=== PATIENT | male | born 1990 | race Caucasian/White ===

== ENCOUNTER 2016-10-07 05:01 | Emergency (ER) | payer BC ==
[~2016-10-07] VITALS: Ht 180.3 cm; Wt 75.0 kg
[2016-10-07 05:09] VITALS: BP 134/81; PULSE 94; RESP 16; TEMP 99.3; O2SAT 99
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
[2016-10-07 05:59] VITALS: O2SAT 98
[2016-10-07 06:04] VITALS: BP 128/72; PULSE 81; RESP 16; O2SAT 98
--- NOTE | 2016-10-07 06:09 | RADRPT ---
EXAM DATE/TIME: 10/07/2016 05:30 [facility] COMPARISON: No previous studies available for comparison. INDICATIONS : Shortness of breath. MEDICAL HISTORY : None. SURGICAL HISTORY : None. ENCOUNTER: Initial ACUITY: 1 day PAIN SCORE: 0/10 LOCATION: Bilateral chest FINDINGS: A single view of the chest demonstrates the lungs to be symmetrically aerated without evidence of mas s, infiltrate or effusion. The cardiomediastinal contours are unremarkable. Osseous structures are intact. CONCLUSION: Normal examination. Mat Ferro MD on October 07, 2016 at 6:07 Board Certified Radiologist. This report was verified electronically.
[2016-10-07] MEDS ORDERED: KETOROLAC TROMETHAMINE 30 MG/ML (IVP) VIAL IV PUSH ONE (06:15)
[2016-10-07 06:16] LABS: AUTOMATED NEUTROPHIL # 4.7 TH/MM3 (1.8-7.7); BASOPHIL # 0.1 TH/MM3 (0-0.2); BASOPHIL % 0.7 % (0.0-2.0); EOSINOPHIL # 0.1 TH/MM3 (0-0.4); EOSINOPHIL % 1.8 % (0.0-4.0); HEMATOCRIT 40.7 % (39.0-51.0); HEMO FLAGS DIFF FINAL; LYMPH % 26.3 % (9.0-44.0); LYMPHOCYTE # 1.9 TH/MM3 (1.0-4.8); MEAN CELL VOLUME 85.5 FL (80.0-100.0); MEAN CORPUSCULAR HGB CONC 35.1 % (32.0-36.0); NEUT % 64.2 % (16.0-70.0); PLATELET COUNT 277 TH/MM3 (150-450); RED BLOOD COUNT 4.76 MIL/MM3 (4.50-5.90); RED CELL DISTRIBUTION WIDTH 13.6 % (11.6-17.2); WHITE BLOOD COUNT 7.3 TH/MM3 (4.0-11.0)
[2016-10-07] MEDS ORDERED: ACETAMINOPHEN 325 MG TAB PO ONE (06:30)
[2016-10-07 06:38] LABS: ALT (GPT) 30 U/L (12-78); ANION GAP 6 MEQ/L (5-15); AST (GOT) 20 U/L (15-37); BICARBONATE 28.6 MEQ/L (21.0-32.0); BLOOD UREA NITROGEN 14 MG/DL (7-18); CHLORIDE 104 MEQ/L (98-107); GLOMERULAR FILTRATION RATE 119 ML/MIN (>89); POTASSIUM 3.4 MEQ/L (3.5-5.1); SODIUM (NA) 139 MEQ/L (136-145)
[2016-10-07 06:41] LABS: ALKALINE PHOSPHATASE 52 U/L (45-117); TOTAL BILIRUBIN ADULT 0.8 MG/DL (0.2-1.0)
--- NOTE | 2016-10-07 07:22 | RADRPT ---
EXAM DATE/TIME: 10/07/2016 06:48 [facility] COMPARISON: No previous studies available for comparison. INDICATIONS : Neck pain and numbness in fingers. RADIATION DOSE: 33.29 CTDIvol (mGy) MEDICAL HISTORY : None SURGICAL HISTORY : None. ENCOUNTER: Initial ACUITY: 3 days PAIN SCALE: 7/10 LOCATION: neck TECHNIQUE: Volumetric scanning of the cervical spine was performed. Multiplanar reconstructions in the sagittal, coronal and oblique axial planes were performed. Using automated exposure control and adjustment o f the mA and/or kV according to patient size, radiation dose was kept as low as reasonably achievable to obtain optimal diagnostic quality images. DICOM format image data is available electronically f or review and comparison. FINDINGS: VERTEBRAE: Normal vertebral body height. ALIGNMENT: No evidence of subluxation. C2-C3: The bony spinal canal is normal in size. No evidence of disc bulge or herniation. The neural forami na are bilaterally patent. C3-C4: The bony spinal canal is normal in size. No evidence of disc bulge or herniation. The neural forami na are bilaterally patent. C4-C5: The bony spinal canal is normal in size. No evidence of disc bulge or herniation. The neural forami na are bilaterally patent. C5-C6: Mild disc space narrowing and mild left-sided uncovertebral osteoarthritis. There is mild left forami nal stenosis. C6-C7: Minimal disc space narrowing. Very small left paracentral disc osteophyte complex without significant foraminal or spinal stenosis. C7-T1: Disc height is normal. There is mild bilateral facet osteoarthritis. No foraminal or spinal stenosis. CONCLUSION: Early/mild lower cervical degenerative changes as above. Mild left foraminal encroachment at C5/C6. N o high-grade foraminal or spinal stenosis at any level. No evidence of an acute disc herniation. Kirill Bolanos MD on October 07, 2016 at 7:17 Board Certified Radiologist. This report was verified electronically.
--- NOTE | 2016-10-07 07:41 | RADRPT ---
EXAM DATE/TIME: 10/07/2016 06:51 [facility] COMPARISON: No previous studies available for comparison. INDICATIONS : Upper back pain when breathing deep for three days. RADIATION DOSE: 35.86 CTDIvol (mGy) MEDICAL HISTORY : None SURGICAL HISTORY : None. ENCOUNTER: Initial ACUITY: 3 days PAIN SCALE: 5/10 LOCATION: upper back TECHNIQUE: Volumetric scanning of the thoracic spine was performed. Multiplanar reconstructions in the sagittal , coronal and oblique axial planes were performed. Using automated exposure control and adjustment o f the mA and/or kV according to patient size, radiation dose was kept as low as reasonably achievable to obtain optimal diagnostic quality images. DICOM format image data is available electronically f or review and comparison. FINDINGS: There is a slight S-shaped curvature. Thoracic kyphosis is mildly exaggerated for a patient this age. There is mild chronic appearing anterior wedging of the T8-L1 vertebral bodies, probably on the basi s of chronic Scheuermann's disease. Slight disc space narrowing seen at essentially all levels. There is mild anterior osseous ridging at T3/T4 and T4/T5 as well as T11/T12 and T12/L1. Mild chronic appearing endplate irregularity and cotton bag clipper kelley appearing femorals nodes changes are seen from T8/T9-T12/L1. Mild bilateral facet osteoarthritis seen from T6/T7-T12/L1 and contributing to mild foraminal stenosis, mostly T7/T8, T8/T9, T9/T10 and T 10/T11. No perceptible acute disc herniation. A subcentimeter benign calcified granuloma seen in the right lower lobe. There is a 4 mm noncalcified nodule seen in the visualized right upper lobe, series 4 image 50. CONCLUSION: 1. Mild multifocal degenerative and suspected chronic Scheuermann's changes of the thoracic spine. 2. Mild kyphoscoliosis. No fracture or acute appearing malalignment. 3. Mild bilateral foraminal stenosis from T7/T8-T10/T11, mostly on the basis of mild facet osteoarthr itis. 4. No spinal stenosis. No acute disc herniation seen. 5. Noncalcified nodule of the right upper lobe and a followup noncontrast chest CT is recommended in 6 months. Kirill Bolanos MD on October 07, 2016 at 7:30 Board Certified Radiologist. This report was verified electronically.
[2016-10-07 08:16] LABS: BLOOD, URINE NEG (NEG); COMMENT (UR) CULT NOT INDICATED; CULTURE IF INDICATED CULT NOT INDICATED; GLUCOSE,URINE NEG (NEG); KETONE, URINE NEG (NEG); MUCUS URINE MANY /lpf (OCC); NITRITE,URINE NEG (NEG); SQUAMOUS EPITHELIAL CELL URINE <1 /hpf (0-5); URINE COLOR YELLOW (YELLW/STRAW)
[2016-10-07] MEDS ORDERED: TYLETAB34 PO (11:12)
--- NOTE | 2016-10-07 11:17 | PD ---
Data Data Last Documented VS Vital Signs Date Time Temp Pulse Resp B/P Pulse Ox O2 Delivery O2 Flow Rate FiO2 10/07/16 06:04 81 16 128/72 98 Room Air 10/07/16 05:09 99.3 Orders Complete Blood Count With Diff (10/07/16 05:33) Comprehensive Metabolic Panel (10/07/16 05:33) C-Reactive Protein (Crp) (10/07/16 05:33) Urinalysis - C+S If Indicated (10/07/16 05:33) Westergren Sedimentation Rate (10/07/16 05:33) Chest, Single Ap (10/07/16 05:33) Iv Access Insert/Monitor (10/07/16 05:33) Ecg Monitoring (10/07/16 05:33) Oximetry (10/07/16 05:33) Ct Cerv Spine W/O Contrast (10/07/16 05:59) Ct Thor Spine W/O Contrast (10/07/16 05:59) Ketorolac Inj (Toradol Inj) (10/07/16 06:15) Acetaminophen (Tylenol) (10/07/16 06:30) Blood Culture (10/07/16 09:32) Labs Laboratory Tests Test 10/07/16 10/07/16 05:55 08:05 White Blood Count 7.3 TH/MM3 Red Blood Count 4.76 MIL/MM3 Hemoglobin 14.3 GM/DL Hematocrit 40.7 % Mean Corpuscular Volume 85.5 FL Mean Corpuscular Hemoglobin 30.0 PG Mean Corpuscular Hemoglobin 35.1 % Concent Red Cell Distribution Width 13.6 % Platelet Count 277 TH/MM3 Mean Platelet Volume 7.9 FL Neutrophils (%) (Auto) 64.2 % Lymphocytes (%) (Auto) 26.3 % Monocytes (%) (Auto) 7.0 % Eosinophils (%) (Auto) 1.8 % Basophils (%) (Auto) 0.7 % Neutrophils # (Auto) 4.7 TH/MM3 Lymphocytes # (Auto) 1.9 TH/MM3 Monocytes # (Auto) 0.5 TH/MM3 Eosinophils # (Auto) 0.1 TH/MM3 Basophils # (Auto) 0.1 TH/MM3 CBC Comment DIFF FINAL Differential Comment Sodium Level 139 MEQ/L Potassium Level 3.4 MEQ/L Chloride Level 104 MEQ/L Carbon Dioxide Level 28.6 MEQ/L Anion Gap 6 MEQ/L Blood Urea Nitrogen 14 MG/DL Creatinine 0.78 MG/DL Estimat Glomerular Filtration 119 ML/MIN Rate Random Glucose 87 MG/DL Calcium Level 8.9 MG/DL Total Bilirubin 0.8 MG/DL Aspartate Amino Transf 20 U/L (AST/SGOT) Alanine Aminotransferase 30 U/L (ALT/SGPT) Alkaline Phosphatase 52 U/L C-Reactive Protein 2.97 MG/DL Total Protein 8.2 GM/DL Albumin 3.7 GM/DL Erythrocyte Sedimentation Rate 46 mm/hr Urine Color YELLOW Urine Turbidity HAZY Urine pH 6.0 Urine Specific Hurricane 1.030 Urine Protein 30 mg/dL Urine Glucose (UA) NEG mg/dL Urine Ketones NEG mg/dL Urine Occult Blood NEG Urine Nitrite NEG Urine Bilirubin NEG Urine Urobilinogen 2.0 MG/DL Urine Leukocyte Esterase NEG Urine RBC 2 /hpf Urine WBC 3 /hpf Urine Squamous Epithelial <1 /hpf Cells Urine Amorphous Sediment RARE Urine Mucus MANY /lpf Microscopic Urinalysis Comment CULT NOT INDICATED MDM Supervised Visit with DARNELL: No Narrative Course This case is checked out to me by Dr. Tse at 7 AM I have reviewed the entirety of the workup. I discussed it with the patient at length CT scan of cervical and thoracic spine reveals some degenerative change but no disc herniation or bony problem Patient is afebrile and not hypotensive nor tachycardic He does not look septic or toxic CBC and metabolic profiles are normal He does have some elevation of sedimentation rate which I did discuss with Dr. Tse She recommended adding blood cultures and I have sent 2 sets. She felt he was stable for outpatient follow-up I did not think this was infectious I instructed the patient to make sure that the staff here had his accurate contact number so we could contact him if blood cultures were positive He should follow up with his primary physician, he doesn't have one so I discussed with him that he should seek out getting a new one. He needs to avoid IV drug use Diagnosis Primary Impression: Back pain Qualified Code: M54.6 - Acute right-sided thoracic back pain Additional Instruction: The patient was advised to follow up with their physician and return if they worsen. The patient was warned about potential sedation for the medications they will receive on prescription. Med/Other Pt SpecificInfo: Prescription(s) given Scripts Acetaminophen-Codeine (Tylenol-Codeine #3)300-30 mg Tab1 Tab PO Q6HR PRN (PAIN) #15 TAB Ref 0 Prov:Caleb Decker MD 10/07/16 Disposition: 01 DISCHARGE HOME Condition: Stable Caleb Decker MD Oct 07, 2016 11:17
[2016-10-21] MEDS ORDERED: OXYC-395 PO (14:45)
[2016-10-21] MEDS ORDERED: PERI8.6T PO (15:54)
[2016-10-30] MEDS ORDERED: OXYC-395 PO (08:55)
[2016-10-30] MEDS ORDERED: MELA1TAB18 PO (08:57)
[2016-11-13] MEDS ORDERED: TRAM50TA PO (13:17)
== END 2016-10-07 11:42 | disposition home or self-care (01) ==
LOC: NEPE 05:01
DX: M54.6 Pain in thoracic spine (principal); F17.210 Nicotine dependence, cigarettes, uncomplicated
CPT/HCPCS: 71010; 72125; 72128; 80053; 81001; 85025; 85652; 86140; 87040; 99285

== ENCOUNTER 2016-10-11 00:10 | Emergency (ER) | payer BC ==
[~2016-10-11] VITALS: Ht 180.3 cm; Wt 118.0 kg
[~2016-10-11 00:10] MED LIST: TYLETAB34 PO
[2016-10-11 00:11] VITALS: BP 134/79; PULSE 101; RESP 18; TEMP 99.2; O2SAT 100
[2016-10-11] MEDS ORDERED: IBUP-232 PO (00:48)
[2016-10-11] MEDS ORDERED: CYCL1TAB29 PO (00:48)
--- NOTE | 2016-10-11 00:48 | PD ---
HPI Chief Complaint: Pain: Acute or Chronic Time Seen by Provider: 00:43 Travel History International Travel<30 days: No Contact w/Intl Traveler<30days: No Traveled to known affect area: No History of Present Illness HPI Patient is a 26-year-old male presents emergency department for second evaluation of his right shoulder pain. Patient states been on for approximately a week. He was here 4 days ago and had workup and CT of his T- spine x-ray of his chest which were negative. Patient states that he did not have any specific trauma and just feels like his shoulder is very tight anytime he tries to move it. Denies any weakness denies any chest pain denies shortness of breath abdominal pain. PFSH Past Medical History Medical History: Denies Significant Hx Diminished Hearing: No Hepatitis: Yes (poss. hep c) Tetanus Vaccination: < 5 Years Influenza Vaccination: No Past Surgical History Surgical History: No Previous Surgery Social History Alcohol Use: Yes (OCC SOCIAL) Tobacco Use: Yes (1PPD) Substance Use: Yes (THC) Allergies-Medications (Allergen,Severity, Reaction): Coded Allergies: Naproxen (Verified Allergy, Unknown, RASH, 10/11/16) Reported Meds & Prescriptions Reported Meds & Active Scripts Active Flexeril (Cyclobenzaprine HCl) 10 Mg Tab 10 Mg PO TID PRN Ibuprofen 600 Mg Tab 600 Mg PO Q6H PRN Review of Systems Except as stated in HPI: all other systems reviewed are Neg Physical Exam Narrative GENERAL: Well-nourished, well-developed patient. Smells of cigarette smoke in no obvious distress. SKIN: Focused skin assessment warm/dry. HEAD: Normocephalic. EYES: No scleral icterus. No injection or drainage. NECK: Supple, trachea midline. No JVD or lymphadenopathy. CARDIOVASCULAR: Regular rate and rhythm without murmurs, gallops, or rubs. RESPIRATORY: Breath sounds equal bilaterally. No accessory muscle use. GASTROINTESTINAL: Abdomen soft, non-tender, nondistended. MUSCULOSKELETAL: No cyanosis, or edema. Patient has no obvious deformity of the right shoulder, there is some minimal tenderness to the soft tissue just below the scapula. Patient has full but tender range of motion of the right shoulder, no tenderness at the elbow wrist bilaterally. Pulses motor and sensory intact distally in all 4 extremities, compartments are soft. No midline CT or L-spine tenderness. BACK: Nontender without obvious deformity. No CVA tenderness. Data Data Last Documented VS Vital Signs Date Time Temp Pulse Resp B/P Pulse Ox O2 Delivery O2 Flow Rate FiO2 10/11/16 00:36 18 10/11/16 00:11 99.2 101 134/79 100 Room Air Orders Ibuprofen (Motrin) (10/11/16 01:00) MDM Medical Decision Making Medical Screen Exam Complete: Yes Emergency Medical Condition: Yes Differential Diagnosis Shoulder Strain, shoulder sprain,, fracture highly unlikely. Narrative Course Patient roomed in emergency department, appears well in no obvious distress. He has been taking Tylenol with Codeine at home with no relief. Discussed range of motion exercises adding Flexeril. Ibuprofen as an anti-inflammatory and discussed need for follow-up the primary care physician and [facility]. I think given his clinical presentation muscular etiology is most likely cause. Diagnosis Primary Impression: Shoulder strain Referrals: [facility] Med/Other Pt SpecificInfo: Prescription(s) given Scripts Cyclobenzaprine (Flexeril)10 Mg Tab10 Mg PO TID PRN (MUSCLE SPASM) #20 TAB Ref 0 Prov:Stanley Figueroa MD 10/11/16 Ibuprofen 600 Mg Enp736 Mg PO Q6H PRN (Pain/Inflammation) #40 TAB Ref 0 Prov:Stanley Figueroa MD 10/11/16 Disposition: 01 DISCHARGE HOME Condition: Stable Stanley Figueroa MD Oct 11, 2016 00:48
[2016-10-11] MEDS ORDERED: IBUPROFEN 600 MG TAB PO ONE (01:00)
[2016-10-21] MEDS ORDERED: OXYC-395 PO (14:45)
[2016-10-21] MEDS ORDERED: PERI8.6T PO (15:54)
[2016-10-30] MEDS ORDERED: OXYC-395 PO (08:55)
[2016-10-30] MEDS ORDERED: MELA1TAB18 PO (08:57)
[2016-11-13] MEDS ORDERED: TRAM50TA PO (13:17)
== END 2016-10-11 01:32 | disposition home or self-care (01) ==
LOC: NEPC 00:10
DX: S46.911A Strain of unspecified muscle, fascia and tendon at shoulder and upper arm level, right arm, initial encounter (principal); X58.XXXA Exposure to other specified factors, initial encounter
CPT/HCPCS: 99283

== ENCOUNTER 2016-10-13 10:41 | Inpatient (IN) | payer BC ==
[~2016-10-13] VITALS: Ht 180.3 cm; Wt 113.6 kg
[~2016-10-13 10:41] MED LIST changes: +CYCL1TAB29 PO; +IBUP-232 PO
[2016-10-13 10:47] VITALS: BP 130/64; PULSE 82; RESP 20; TEMP 97.9; O2SAT 98
[2016-10-13] MEDS ORDERED: ONDANSETRON HCL 4 MG/2 ML VIAL IV PUSH ONE (12:00)
[2016-10-13] MEDS ORDERED: NEOSTIGMINE 3 MG/3 ML SYR IV ONE (12:00)
[2016-10-13] MEDS ORDERED: PROPOFOL 200 MG/20 ML AMP IV ONE (12:00)
[2016-10-13] MEDS ORDERED: HYDR-3516 PO ×2 (13:20)
--- NOTE | 2016-10-13 13:41 | PD ---
HPI . back pain, leg numbness and tingling x 2 days Chief Complaint: Back/ Neck Pain or Injury Time Seen by Provider: 13:41 Travel History International Travel<30 days: No Contact w/Intl Traveler<30days: No Traveled to known affect area: No History of Present Illness HPI 26-year-old male who was a IV drug user here with complaints of back pain, bilateral leg numbness and tingling. Patient was seen here in the emergency department on October 07 for similar issues, however at that time he did not have any numbness or tingling. He tells me approximately 2 days ago he developed numbness and tingling in his lower extremities. He says he has been extremely weak and unable to move his lower extremities. He has not been able to walk, and had to call fire rescue to bring him into the emergency department. He is accompanied by his mother, who confirms this. He tells me that a few days ago, he lied and told our doctor that he was not IV drug user. However he does use IV drugs. He reports using IV Dilaudid 2-3 days ago. 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 He tells me he is constantly feeling tons of vibration from these large machines that he is using. He denies any bowel or bladder dysfunction. On October 07, [address] scan of the C-spine that demonstrated early/ mild lower cervical degenerative changes. There was mild left foraminal encroachment at C5/C6. No high-grade foraminal or spinal stenosis at any level. There was no evidence of acute disc herniation. CT scan of the T-spine demonstrated mild multifocal degenerative and suspected chronic Scheuermann's changes of thoracic spine. There was also mild kyphoscoliosis. No fracture or acute appearing malalignment. Mild bilateral foraminal stenosis from T7/T8-T10/T11, mostly on the basis of mild facet osteoarthritis. No spinal stenosis no acute disc herniation seen. Noncalcified nodule of the right upper lobe and follow-up noncontrast CT of the chest recommended 6 months. PFSH Past Medical History Diminished Hearing: No Hepatitis: Yes (poss. hep c) Past Surgical History Surgical History: No Previous Surgery Social History Alcohol Use: Yes (OCC SOCIAL) Tobacco Use: Yes (1PPD) Substance Use: Yes (THC, iv dilaudid a few days ago) Allergies-Medications (Allergen,Severity, Reaction): Coded Allergies: naproxen (Verified Allergy, Unknown, RASH, 10/13/16) Reported Meds & Prescriptions Reported Meds & Active Scripts Active Flexeril (Cyclobenzaprine HCl) 10 Mg Tab 10 Mg PO TID PRN Ibuprofen 600 Mg Tab 600 Mg PO Q6H PRN Reported Hydrocodone-Acetaminophen 5-325 mg Tab 1 Tab PO Q4H PRN Review of Systems General / Constitutional: No: Fever Eyes: No: Visual changes HENT: No: Headaches Cardiovascular: No: Chest Pain or Discomfort Respiratory: No: Shortness of Breath Gastrointestinal: No: Abdominal Pain Genitourinary: No: Dysuria Musculoskeletal: Positive: Pain (back pain ) Skin: No Rash Neurologic: Positive: Incontinence, No: Weakness Psychiatric: No: Depression Endocrine: No: Polydipsia Hematologic/Lymphatic: No: Easy Bruising Physical Exam Narrative GENERAL: AAO x 3, no acute distress, Well-nourished, well-developed patient. SKIN: Warm and dry. No visible rashes or bruising. HEAD: Normocephalic and atraumatic. EYES: No scleral icterus. No injection or drainage. EOM intact, PERRLA ENT: No nasal drainage noted. Mucous membranes pink. Airway patent. NECK: Supple, trachea midline. No JVD. CARDIOVASCULAR: Regular rate and rhythm without murmurs, gallops, or rubs. RESPIRATORY: Breath sounds equal bilaterally. No accessory muscle use. No rhonchi or rales. GASTROINTESTINAL: Abdomen soft, non-tender, nondistended. no rebound or guarding EXTREMITIES: No cyanosis or edema. patient has difficulty moving lower extremities BACK: ++ tenderness along t spine that causes shooting pain in B/L legs, NEURO: CN II-12 intact, senior cost analyst strength normal b/l, UE and LE strength diminished bilaterally 4/5. PSYCH: AAO x 3, flat affect Data Data Last Documented VS Vital Signs Date Time Temp Pulse Resp B/P Pulse Ox O2 Delivery O2 Flow Rate FiO2 10/13/16 16:16 74 18 150/96 100 Room Air 10/13/16 10:47 97.9 Orders Mri C Spine W&W/O Contrast (10/13/16 ) Mri L Spine W&W/O Contrast (10/13/16 ) Mri T Spine W & W/O Contrast (10/13/16 ) Acetaminophen (Tylenol) (10/13/16 14:00) Complete Blood Count With Diff (10/13/16 13:59) Comprehensive Metabolic Panel (10/13/16 13:59) Lactic Acid (10/13/16 13:59) Urinalysis - C+S If Indicated (10/13/16 13:59) Blood Culture (10/13/16 13:59) Blood Glucose (10/13/16 13:59) Ecg Monitoring (10/13/16 13:59) Iv Access Insert/Monitor (10/13/16 13:59) Oximetry (10/13/16 13:59) Oxygen Administration (10/13/16 13:59) Prothrombin Time / Inr (Pt) (10/13/16 13:59) Act Partial Throm Time (Ptt) (10/13/16 13:59) Drug Screen, Random Urine (10/13/16 13:59) Gadodiamide Pf Inj (Omniscan Pf Inj) (10/13/16 15:57) NPO (10/13/16 17:01) Morphine Inj (Morphine Inj) (10/13/16 17:15) Labs Laboratory Tests Test 10/13/16 10/13/16 10/13/16 14:10 14:15 17:00 White Blood Count 6.2 TH/MM3 Red Blood Count 4.27 MIL/MM3 Hemoglobin 12.7 GM/DL Hematocrit 37.1 % Mean Corpuscular Volume 87.0 FL Mean Corpuscular Hemoglobin 29.8 PG Mean Corpuscular Hemoglobin 34.2 % Concent Red Cell Distribution Width 13.7 % Platelet Count 322 TH/MM3 Mean Platelet Volume 8.4 FL Neutrophils (%) (Auto) 78.6 % Lymphocytes (%) (Auto) 16.1 % Monocytes (%) (Auto) 4.3 % Eosinophils (%) (Auto) 0.4 % Basophils (%) (Auto) 0.6 % Neutrophils # (Auto) 4.9 TH/MM3 Lymphocytes # (Auto) 1.0 TH/MM3 Monocytes # (Auto) 0.3 TH/MM3 Eosinophils # (Auto) 0.0 TH/MM3 Basophils # (Auto) 0.0 TH/MM3 CBC Comment DIFF FINAL Differential Comment Prothrombin Time 11.3 SEC Prothromb Time International 1.0 RATIO Ratio Activated Partial 37.2 SEC Thromboplast Time Sodium Level 138 MEQ/L Potassium Level 3.8 MEQ/L Chloride Level 102 MEQ/L Carbon Dioxide Level 29.6 MEQ/L Anion Gap 6 MEQ/L Blood Urea Nitrogen 13 MG/DL Creatinine 0.59 MG/DL Estimat Glomerular Filtration 164 ML/MIN Rate Random Glucose 75 MG/DL Calcium Level 9.3 MG/DL Total Bilirubin 0.9 MG/DL Aspartate Amino Transf 27 U/L (AST/SGOT) Alanine Aminotransferase 23 U/L (ALT/SGPT) Alkaline Phosphatase 50 U/L Total Protein 8.4 GM/DL Albumin 3.3 GM/DL Lactic Acid Level 0.9 mmol/L Urine Color YELLOW Urine Turbidity CLEAR Urine pH 6.0 Urine Specific [place] 1.028 Urine Protein TRACE mg/dL Urine Glucose (UA) NEG mg/dL Urine Ketones 40 mg/dL Urine Occult Blood NEG Urine Nitrite NEG Urine Bilirubin NEG Urine Urobilinogen 2.0 MG/DL Urine Leukocyte Esterase NEG Urine RBC LESS THAN 1 /hpf Urine WBC 1 /hpf Urine Mucus FEW /lpf Microscopic Urinalysis Comment CATH-CULT NOT IND MDM Medical Decision Making Medical Screen Exam Complete: Yes Emergency Medical Condition: Yes Medical Record Reviewed: Yes Differential Diagnosis epidural abscess, osteomyelitis, spinal stenosis, Narrative Course 26-year-old male here with complaints of back pain and leg numbness. On examination he does have some significant tenderness in his T-spine shooting into his lower extremities bilaterally. He recently had CT scan. I'm ordering MRIs to rule out any type of epidural abscess. Tylenol given. Labs ordered. Last Impressions Lumbar Spine MRI 10/13/16 0000 Signed Impressions: Service Date/Time: Thursday, October 13, 2016 14:52 - CONCLUSION: Normal examination. Justin Garg Jr., MD Cervical Spine MRI 10/13/16 0000 Signed Impressions: Service Date/Time: Thursday, October 13, 2016 14:52 - CONCLUSION: 1. Diffuse asymmetric disc osteophyte complex to the left at C5-6 resulting in moderate left neural foraminal narrowing. 2. Minimal diffuse symmetric disc bulge at C6-7. 3. No evidence of abscess. Stanley Aviles MD Laboratory Tests Test 10/13/16 10/13/16 10/13/16 14:10 14:15 17:00 White Blood Count 6.2 TH/MM3 Red Blood Count 4.27 MIL/MM3 Hemoglobin 12.7 GM/DL Hematocrit 37.1 % Mean Corpuscular Volume 87.0 FL Mean Corpuscular Hemoglobin 29.8 PG Mean Corpuscular Hemoglobin 34.2 % Concent Red Cell Distribution Width 13.7 % Platelet Count 322 TH/MM3 Mean Platelet Volume 8.4 FL Neutrophils (%) (Auto) 78.6 % Lymphocytes (%) (Auto) 16.1 % Monocytes (%) (Auto) 4.3 % Eosinophils (%) (Auto) 0.4 % Basophils (%) (Auto) 0.6 % Neutrophils # (Auto) 4.9 TH/MM3 Lymphocytes # (Auto) 1.0 TH/MM3 Monocytes # (Auto) 0.3 TH/MM3 Eosinophils # (Auto) 0.0 TH/MM3 Basophils # (Auto) 0.0 TH/MM3 CBC Comment DIFF FINAL Differential Comment Prothrombin Time 11.3 SEC Prothromb Time International 1.0 RATIO Ratio Activated Partial 37.2 SEC Thromboplast Time Sodium Level 138 MEQ/L Potassium Level 3.8 MEQ/L Chloride Level 102 MEQ/L Carbon Dioxide Level 29.6 MEQ/L Anion Gap 6 MEQ/L Blood Urea Nitrogen 13 MG/DL Creatinine 0.59 MG/DL Estimat Glomerular Filtration 164 ML/MIN Rate Random Glucose 75 MG/DL Calcium Level 9.3 MG/DL Total Bilirubin 0.9 MG/DL Aspartate Amino Transf 27 U/L (AST/SGOT) Alanine Aminotransferase 23 U/L (ALT/SGPT) Alkaline Phosphatase 50 U/L Total Protein 8.4 GM/DL Albumin 3.3 GM/DL Lactic Acid Level 0.9 mmol/L Urine Color YELLOW Urine Turbidity CLEAR Urine pH 6.0 Urine Specific [place] 1.028 Urine Protein TRACE mg/dL Urine Glucose (UA) NEG mg/dL Urine Ketones 40 mg/dL Urine Occult Blood NEG Urine Nitrite NEG Urine Bilirubin NEG Urine Urobilinogen 2.0 MG/DL Urine Leukocyte Esterase NEG Urine RBC LESS THAN 1 /hpf Urine WBC 1 /hpf Urine Mucus FEW /lpf Microscopic Urinalysis Comment CATH-CULT NOT IND 1649: Dr. Aviles: MRI Thoracic spine: enhancing lesions, epidural abscessT6-&10, cord compression at T8, 1700: Discussed with Dr. Montoya's tech while he was in surgery, he will see the patient after surgery. NPO now. 170: Discussed finding with patient and his mother. He is requesting pain meds , Morphine provided. He is aware of admission. 1819: discussed with Dr. Ahmadi. Patient admitted to ICU. Dr. Montoya to see the patient. Diagnosis Primary Impression: Epidural abscess Admitting Information Admitting Physician Requests: Admit Condition: Stable Deepti Mcconnell Oct 13, 2016 13:41
[2016-10-13] MEDS ORDERED: ACETAMINOPHEN 325 MG TAB PO ONE (14:00)
[2016-10-13 14:47] LABS: AUTOMATED NEUTROPHIL # 4.9 TH/MM3 (1.8-7.7); BASOPHIL % 0.6 % (0.0-2.0); EOSINOPHIL % 0.4 % (0.0-4.0); HEMATOCRIT 37.1 % (39.0-51.0); HEMO FLAGS DIFF FINAL; LYMPH % 16.1 % (9.0-44.0); MEAN CORPUSCULAR HEMOGLOBIN 29.8 PG (27.0-34.0); MEAN CORPUSCULAR HGB CONC 34.2 % (32.0-36.0); MONO % 4.3 % (0.0-8.0); NEUT % 78.6 % (16.0-70.0); PLATELET COUNT 322 TH/MM3 (150-450); RED BLOOD COUNT 4.27 MIL/MM3 (4.50-5.90); RED CELL DISTRIBUTION WIDTH 13.7 % (11.6-17.2); WHITE BLOOD COUNT 6.2 TH/MM3 (4.0-11.0)
[2016-10-13 15:02] LABS: APTT (PATIENT) 37.2 SEC (24.3-30.1); PROTHROMBIN TIME - PATIENT 11.3 SEC (9.8-11.6)
[2016-10-13 15:06] LABS: ALT (GPT) 23 U/L (12-78); ANION GAP 6 MEQ/L (5-15); AST (GOT) 27 U/L (15-37); BICARBONATE 29.6 MEQ/L (21.0-32.0); BLOOD UREA NITROGEN 13 MG/DL (7-18); CHLORIDE 102 MEQ/L (98-107); GLOMERULAR FILTRATION RATE 164 ML/MIN (>89); POTASSIUM 3.8 MEQ/L (3.5-5.1); SODIUM (NA) 138 MEQ/L (136-145)
[2016-10-13 15:09] LABS: ALKALINE PHOSPHATASE 50 U/L (45-117); TOTAL BILIRUBIN ADULT 0.9 MG/DL (0.2-1.0)
[2016-10-13] MEDS ORDERED: GADODIAMIDE PF 287 MG/ML 20 ML VIAL (for RAD MRI) IV ONE (15:57)
[2016-10-13 16:16] VITALS: BP 150/96; PULSE 74; RESP 18; O2SAT 100
--- NOTE | 2016-10-13 16:25 | RADRPT ---
EXAM DATE/TIME: 10/13/2016 14:52 [facility] COMPARISON: No previous studies available for comparison. INDICATIONS : Abscess. CONTRAST: 20 cc Omniscan (gadodiamide) IV MEDICAL HISTORY : None. SURGICAL HISTORY : None. ENCOUNTER: Subsequent ACUITY: 4-6 days PAIN SCORE: 8/10 LOCATION: Lower back. TECHNIQUE: Multiplanar multisequence MRI of the lumbar spine was performed with and without contrast. FINDINGS: The most caudal appearing lumbar vertebra is numbered as L5. VERTEBRAE: Homogeneous signal. Normal alignment. CONUS: Normal level and configuration. POST CONTRAST: No abnormal areas of contrast enhancement are seen. T12-L1: The thecal sac has a normal diameter. No evidence of disc bulge or protrusion. The neural foramina are patent bilaterally. L1-L2: The thecal sac has a normal diameter. No evidence of disc bulge or protrusion. The neural foramina are patent bilaterally. L2-L3: The thecal sac has a normal diameter. No evidence of disc bulge or protrusion. The neural foramina are patent bilaterally. L3-L4: The thecal sac has a normal diameter. No evidence of disc bulge or protrusion. The neural foramina are patent bilaterally. L4-L5: The thecal sac has a normal diameter. No evidence of disc bulge or protrusion. The neural foramina are patent bilaterally. L5-S1: The thecal sac has a normal diameter. No evidence of disc bulge or protrusion. The neural foramina are patent bilaterally. CONCLUSION: Normal examination. Justin Garg Jr., MD on October 13, 2016 at 16:09 Board Certified Radiologist. This report was verified electronically.
--- NOTE | 2016-10-13 16:26 | RADRPT ---
EXAM DATE/TIME: 10/13/2016 14:52 [facility] COMPARISON: CT CERVICAL SPINE W/O CONTRAST, October 07, 2016, 6:48. INDICATIONS : Abscess. CONTRAST: 20 cc Omniscan (gadodiamide) IV MEDICAL HISTORY : None. SURGICAL HISTORY : None. ENCOUNTER: Subsequent ACUITY: 4-6 days PAIN SCORE: 8/10 LOCATION: neck TECHNIQUE: Multiplanar, multisequence MRI examination of the cervical spine was performed. FINDINGS: VERTEBRAE: Normal vertebral body height. Homogeneous marrow signal. ALIGNMENT: No evidence of subluxation. CORD: Normal configuration and signal. POST FOSSA: The cerebellar tonsils are normal in position. POST-CONTRAST: No abnormal areas of enhancement are seen. C2-C3: The thecal sac has a normal configuration. There is no evidence of disc herniation or spinal canal stenosis. The neural foramina are patent bilaterally. C3-C4: The thecal sac has a normal configuration. There is no evidence of disc herniation or spinal canal s tenosis. The neural foramina are patent bilaterally. C4-C5: The thecal sac has a normal configuration. There is no evidence of disc herniation or spinal canal s tenosis. The neural foramina are patent bilaterally. C5-C6: Diffuse asymmetric disc osteophyte complex to the left is noted. Moderate left neural foraminal narro wing is noted. No spinal stenosis is noted. C6-C7: Minimal diffuse symmetric disc bulge is noted resulting in no spinal stenosis or neural foraminal [place] row[place]. C7-T1: The thecal sac has a normal configuration. There is no evidence of disc herniation or spinal canal s tenosis. The neural foramina are patent bilaterally. CONCLUSION: 1. Diffuse asymmetric disc osteophyte complex to the left at C5-6 resulting in moderate left neural f oraminal narrowing. 2. Minimal diffuse symmetric disc bulge at C6-7. 3. No evidence of abscess. Stanley Aviles MD on October 13, 2016 at 16:19 Board Certified Radiologist. This report was verified electronically.
--- NOTE | 2016-10-13 16:57 | RADRPT ---
EXAM DATE/TIME: 10/13/2016 14:52 [facility] COMPARISON: CT THORACIC SPINE W/O CONTRAST, October 07, 2016, 6:51. INDICATIONS : Abscess. CONTRAST: 20 cc Omniscan (gadodiamide) IV MEDICAL HISTORY : None. SURGICAL HISTORY : None. ENCOUNTER: Subsequent ACUITY: 4-6 days PAIN SCORE: 8/10 LOCATION: Mid-back. TECHNIQUE: Multiplanar multisequence MRI of the thoracic spine was performed. FINDINGS: There is evidence of a posterior epidural collection which extends from the T6-7 level inferiorly to the T9-10 level. This collection measures 7 mm in greatest AP dimension x 16 mm in transverse dimensi on and extends for a length of approximately 100 mm in sagittal dimension. There is cord compression which is most significant at the T7-8 level related to this collection. The cord has an AP dimensio n of 6 mm at the level of the maximum compression. The collection demonstrates diffuse enhancement a nd likely represents epidural abscess. Clinical correlation is recommended. CONCLUSION: 1. Extensive posterior epidural enhancing collection which extends from the T6-7 level to the T9-10 l evel and measures 7 mm AP x 16 mm transverse x 100 mm sagittal dimension and results in significant c ord compression which is most severe at T7-8. This collection likely represents epidural abscess. Cl inical correlation is recommended. 2. 3. The findings were called immediately to Deepti Mcconnell PA-C at 4: 4. 45 PM on 10/13/2016. Stanley Aviles MD on October 13, 2016 at 16:38 Board Certified Radiologist. This report was verified electronically.
[2016-10-13] MEDS ORDERED: MORPHINE SULFATE 4 MG/ML INJ IV PUSH ONE (17:15)
[2016-10-13 17:34] LABS: BLOOD, URINE NEG (NEG); GLUCOSE,URINE NEG (NEG); KETONE, URINE 40 mg/dL (NEG); MUCUS URINE FEW /lpf (OCC); NITRITE,URINE NEG (NEG); URINE COLOR YELLOW (YELLW/STRAW)
[2016-10-13 17:35] LABS: COMMENT (UR) CATH-CULT NOT IND; CULTURE IF INDICATED CATH CULTURE NOT IND
[2016-10-13] MEDS ORDERED: ACETAMINOPHEN 325 MG TAB PO PRN (18:30)
[2016-10-13] MEDS ORDERED: MAGNESIUM HYDROXIDE SUSP 30 ML CUP PO PRN (18:30)
[2016-10-13] MEDS ORDERED: SENNOSIDES 8.6 MG TAB PO PRN (18:30)
[2016-10-13] MEDS ORDERED: NALOXONE HCL 0.4 MG/ML AMP IV PRN (18:30)
[2016-10-13] MEDS ORDERED: SODIUM CHLORIDE 0.9% FLUSH 10 ML FLUSH IV FLUSH PRN (18:30)
[2016-10-13] MEDS ORDERED: BISACODYL 10 MG SUPP RECTAL PRN (18:30)
[2016-10-13] MEDS ORDERED: LACTULOSE SYRUP 20 GM/30 ML CUP PO PRN (18:30)
[2016-10-13] MEDS ORDERED: ONDANSETRON HCL 4 MG/2 ML VIAL IVP PRN (18:30)
--- NOTE | 2016-10-13 18:39 | HHI.HP ---
[facility] Primary Care Physician No Primary Care Physician Admission Diagnosis epidural abscess Diagnoses: Chief Complaint: Back pain Travel History International Travel<30 Days: No Contact w/Intl Traveler <30 Da: No Traveled to Known Affected Are: No History of Present Illness This is a pleasant 26 y/o male who is IV drug abuse, who came to ER with complaint of back pain, bilateral leg numbness and tingling sensation He was seen in Emergency room on October 07 2016 but did not complaint at that time of Neurological symptoms, He says he has been extremely weak and unable to move his lower extremities. He has not been able to walk, and had to call fire rescue to bring him into the emergency department. He is accompanied by his mother, who confirms this. He tells me that a few days ago, he lied and told our doctor that he was not IV drug user. However he does use IV drugs. He reports using IV Dilaudid 2-3 days ago. 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 He tells me he is constantly feeling tons of vibration from these large machines that he is using. He denies any bowel or bladder dysfunction. CT scan from October 07, 2016 CT scan of the C-spine that demonstrated early/mild lower cervical degenerative changes. There was mild left foraminal encroachment at C5/C6. No high-grade foraminal or spinal stenosis at any level. There was no evidence of acute disc herniation. CT scan of the T-spine demonstrated mild multifocal degenerative and suspected chronic Scheuermann's changes of thoracic spine. There was also mild kyphoscoliosis. No fracture or acute appearing malalignment. Mild bilateral foraminal stenosis from T7/T8-T10/T11, mostly on the basis of mild facet osteoarthritis. No spinal stenosis no acute disc herniation seen. Noncalcified nodule of the right upper lobe and follow-up noncontrast CT of the chest recommended 6 months. Seen in Emergency room, in the presence of his Mother and his Grandfather and Grandmother, awaiting for Neurosurgical evaluation, stable no nausea, vomit or diarrhea. Review of Systems Constitutional: DENIES: Fever, Chills, Change in appetite Endocrine: DENIES: Heat/cold intolerance Eyes: DENIES: Blurred vision, Eye pain Musculoskeletal: COMPLAINS OF: Back pain Neurologic: COMPLAINS OF: Paresthesias Except as stated in HPI: all other systems reviewed are Neg Past Family Social History Past Medical History hepatitis C Past Surgical History No previous Surgical history Reported Medications Reported Meds & Active Scripts Active Flexeril (Cyclobenzaprine HCl) 10 Mg Tab 10 Mg PO TID PRN Ibuprofen 600 Mg Tab 600 Mg PO Q6H PRN Reported Hydrocodone-Acetaminophen 5-325 mg Tab 1 Tab PO Q4H PRN Allergies: Coded Allergies: naproxen (Verified Allergy, Unknown, RASH, 10/13/16) Active Ordered Medications Current Medications Medications (Trade) Dose Ordered Sig/Rodrigue Route Start Time Stop Time Status Last Admin (NS 1000 ml Inj) 1,000 ml @ 100 mls/hr Q10H IV 10/13/16 18:22 UNV (NS Flush) 2 ml UNSCH PRN IV FLUSH 10/13/16 18:30 UNV (NS Flush) 2 ml BID IV FLUSH 10/13/16 21:00 UNV (Tylenol) 650 mg Q4H PRN PO 10/13/16 18:30 UNV (Zofran Inj) 4 mg Q6H PRN IVP 10/13/16 18:30 UNV (Narcan Inj) 0.4 mg UNSCH PRN IV 10/13/16 18:30 UNV (Angela-Colace) 1 tab BID PO 10/13/16 21:00 UNV (Milk Of Magnesia Liq) 30 ml Q12H PRN PO 10/13/16 18:30 UNV (Senokot) 17.2 mg Q12H PRN PO 10/13/16 18:30 UNV (Dulcolax Supp) 10 mg DAILY PRN RECTAL 10/13/16 18:30 UNV (Lactulose Liq) 30 ml DAILY PRN PO 10/13/16 18:30 UNV Family History asked and denied by patient and his mother Social History alcohol abuse positive, tobacco dependence 1 pack daily, and abuses THC, IV Dilaudid. Physical Exam Vital Signs Vital Signs Date Time Temp Pulse Resp B/P Pulse Ox O2 Delivery O2 Flow Rate FiO2 10/13/16 16:16 74 18 150/96 100 Room Air 10/13/16 16:16 74 18 10/13/16 14:06 97 Room Air 10/13/16 10:47 97.9 82 20 130/64 98 Physical Exam GENERAL: AAO x 3, no acute distress, Well-nourished, well-developed patient. SKIN: Warm and dry. No visible rashes or bruising. HEAD: Normocephalic and atraumatic. EYES: No scleral icterus. No injection or drainage. EOM intact, PERRLA ENT: No nasal drainage noted. Mucous membranes pink. Airway patent. NECK: Supple, trachea midline. No JVD. CARDIOVASCULAR: Regular rate and rhythm without murmurs, gallops, or rubs. RESPIRATORY: Breath sounds equal bilaterally. No accessory muscle use. No rhonchi or rales. GASTROINTESTINAL: Abdomen soft, non-tender, nondistended. no rebound or guarding EXTREMITIES: No cyanosis or edema. patient has difficulty moving lower extremities BACK: ++ tenderness along t spine that causes shooting pain in B/L legs, NEURO: CN II-12 intact, senior gis analyst strength normal b/l, UE and LE strength diminished bilaterally 4/5. PSYCH: AAO x 3, flat affect Laboratory Laboratory Tests Test 10/13/16 10/13/16 10/13/16 14:10 14:15 17:00 White Blood Count 6.2 Red Blood Count 4.27 Hemoglobin 12.7 Hematocrit 37.1 Mean Corpuscular Volume 87.0 Mean Corpuscular Hemoglobin 29.8 Mean Corpuscular Hemoglobin 34.2 Concent Red Cell Distribution Width 13.7 Platelet Count 322 Mean Platelet Volume 8.4 Neutrophils (%) (Auto) 78.6 Lymphocytes (%) (Auto) 16.1 Monocytes (%) (Auto) 4.3 Eosinophils (%) (Auto) 0.4 Basophils (%) (Auto) 0.6 Neutrophils # (Auto) 4.9 Lymphocytes # (Auto) 1.0 Monocytes # (Auto) 0.3 Eosinophils # (Auto) 0.0 Basophils # (Auto) 0.0 CBC Comment DIFF FINAL Differential Comment Prothrombin Time 11.3 Prothromb Time International 1.0 Ratio Activated Partial 37.2 Thromboplast Time Sodium Level 138 Potassium Level 3.8 Chloride Level 102 Carbon Dioxide Level 29.6 Anion Gap 6 Blood Urea Nitrogen 13 Creatinine 0.59 Estimat Glomerular Filtration 164 Rate Random Glucose 75 Calcium Level 9.3 Total Bilirubin 0.9 Aspartate Amino Transf 27 (AST/SGOT) Alanine Aminotransferase 23 (ALT/SGPT) Alkaline Phosphatase 50 Total Protein 8.4 Albumin 3.3 Lactic Acid Level 0.9 Urine Color YELLOW Urine Turbidity CLEAR Urine pH 6.0 Urine Specific [place] 1.028 Urine Protein TRACE Urine Glucose (UA) NEG Urine Ketones 40 Urine Occult Blood NEG Urine Nitrite NEG Urine Bilirubin NEG Urine Urobilinogen 2.0 Urine Leukocyte Esterase NEG Urine RBC LESS THAN 1 Urine WBC 1 Urine Mucus FEW Microscopic Urinalysis Comment CATH-CULT NOT IND Date/Time Procedure Status Source Growth 10/13/16 14:15 Aerobic Blood Culture Received Blood Peripheral Pending 10/13/16 14:15 Anaerobic Blood Culture Received Blood Peripheral Pending Result Diagram: 10/13/16 1410 10/13/16 1410 Imaging Last Impressions Lumbar Spine MRI 10/13/16 0000 Signed Impressions: Service Date/Time: Thursday, October 13, 2016 14:52 - CONCLUSION: Normal examination. Justin Garg Jr., MD Cervical Spine MRI 10/13/16 0000 Signed Impressions: Service Date/Time: Thursday, October 13, 2016 14:52 - CONCLUSION: 1. Diffuse asymmetric disc osteophyte complex to the left at C5-6 resulting in moderate left neural foraminal narrowing. 2. Minimal diffuse symmetric disc bulge at C6-7. 3. No evidence of abscess. Stanley Aviles MD Assessment and Plan Assessment and Plan 1. This is a pleasant 26 y/o who has Epidural Abscess T6-T10 and probable Cord Compression at T8 Started on Vancomycin to give 1.5 Grams IV now and continue as per Pharmacy , with dose of 30 to 60 Mg per Kilogram daily, renally adjusted, also Ceftriaxone 2 grams every 12 hours. as we know he has Diffuse asymmetric disc osteophyte complex to the left at C5-C6 resulting in moderate left neural foraminal narrowing Minimal diffuse asymmetric disc bulge at C6- C7 no evidence of abscess. on MRI Thoracic spine Enhancing lesions epidural abscess T6-T10, cord compression at T8 2. Probable Hepatitis asked for Hepatitis Profile, HIV, RPR. 3. Tobacco dependence/Polysubstance abuse strongly recommended to stop behavior. Continue antibiotics NPO for procedure SCDs for DVT prophylaxis for procedure tonight Blood cultures Echocardiogram ID specialist consult Neurosurgical consult Echocardiogram Vancomycin and Ceftriaxone IV fluids Discussed with Patient and Family Code Status Full Code Discussed Condition With Discussed with Deepti Kaba Physician Certification 2 Midnight Certification Type: Admission for Inpatient Services Order for Inpatient Services The services are ordered in accordance with Medicare regulations or non- Medicare payer requirements, as applicable. In the case of services not specified as inpatient-only, they are appropriately provided as inpatient services in accordance with the 2-midnight benchmark. Estimated LOS (days): 3 days is the estimated time the patient will need to remain in the hospital, assuming treatment plan goals are met and no additional complications. Post-Hospital Plan: Not yet determined Donald Knutson MD Oct 13, 2016 18:39
[2016-10-13] MEDS ORDERED: Vancomycin Consult Pharmacy 1 EA OTHER SCH (18:45)
[2016-10-13] MEDS: MORPHINE SULFATE 4 MG/ML INJ IV PUSH PRN (19:18)
[2016-10-13] MEDS ORDERED: GELFOAM SIZE 100 ONE (19:44)
[2016-10-13] MEDS ORDERED: GENTAMICIN SULFATE 80 MG/2 ML VIAL ONE (19:44)
[2016-10-13] MEDS ORDERED: THROMBIN (TOPICAL) 5,000 UNIT VIAL ONE (19:44)
[2016-10-13] MEDS: LIDOCAINE 2%/EPINEPHrine PF 1:200,000 20ML SDV ONE ×2 (19:47→21:37)
[2016-10-13] MEDS: cefTRIAXone INJ 2,000 MG in SODIUM CHLORIDE 0.9% INJ 100 ML IV SCH (20:12)
[2016-10-13] MEDS ORDERED: HYDROmorphone HCL PF 2 MG/ML VIAL ONE ×2 (20:36→23:49)
[2016-10-13] MEDS: SODIUM CHLORIDE 0.9% FLUSH 10 ML FLUSH IV FLUSH SCH (21:00)
[2016-10-13] MEDS: DOCUSATE SODIUM 50 MG/SENNA 8.6 MG TAB PO SCH (21:00)
[2016-10-13] MEDS ORDERED: KETAMINE HCL 500 MG/5 ML VIAL ONE (21:00)
--- NOTE | 2016-10-13 21:06 | PD.CONS ---
History of Present Illness Service Neurosurgery Consult Requested By Medicine service Reason for Consult Thoracic Epidural abscess Primary Care Physician No Primary Care Physician Diagnoses: History of Present Illness 26-year-old male presents to the emergency room with complaint of approximately 2 weeks of progressive severe thoracic pain. He was seen in the emergency room approximately a week ago and a CT scan of the spine obtained which was within normal limits. He will return to the emergency room today with further progression of pain symptoms. He complains of a burning or stinging sensation across his abdomen for the past day. He also complains of intermittent pain radiating to the lower extremities for the past few days. He has had no definite problems with bowel or bladder dysfunction. No definite weakness in the lower extremities although he complains of anterior 3 days of diffuse numbness in the legs. No spasms in the lower extremities. No complaint of upper extremity pain and weakness numbness or paresthesia. He states that he has been able to walk today but only with rather severe pain. Review of Systems Constitutional: COMPLAINS OF: Fever, Chills Eyes: DENIES: Blurred vision, Diplopia Ears, nose, mouth, throat: DENIES: Hearing loss, Vertigo Respiratory: COMPLAINS OF: Cough, Shortness of breath Cardiovascular: COMPLAINS OF: Chest pain, Palpitations Gastrointestinal: COMPLAINS OF: Abdominal pain, Nausea, Vomiting Genitourinary: DENIES: Urinary frequency Musculoskeletal: COMPLAINS OF: Muscle aches, Back pain, DENIES: Joint pain, Neck pain Hematologic/lymphatic: DENIES: Bruising Neurologic: COMPLAINS OF: Abnormal gait, Paresthesias, DENIES: Headache, Localized weakness Psychiatric: DENIES: Confusion Past Family Social History Allergies: Coded Allergies: naproxen (Verified Allergy, Unknown, RASH, 10/13/16) Past Medical History Denies cardiac, pulmonary, gastrointestinal disease, diabetes or hypertension Past Surgical History No major surgeries reported Reported Medications No prescription medications other than those recently prescribed in the emergency room for his pain. Social History Smokes approximately 1 pack cigarettes per day No alcohol use Positive history of IV drug abuse Physical Exam Vital Signs Vital Signs Date Time Temp Pulse Resp B/P Pulse Ox O2 Delivery O2 Flow Rate FiO2 10/13/16 16:16 74 18 150/96 100 Room Air 10/13/16 16:16 74 18 10/13/16 14:06 97 Room Air 10/13/16 10:47 97.9 82 20 130/64 98 Physical Exam GENERAL: This is a well-nourished, well-developed patient, in no apparent distress. SKIN: No rashes, ecchymoses or lesions. Cool and dry. HEAD: Atraumatic. Normocephalic. No temporal or scalp tenderness. EYES: Sclerae are clear and nonicteric ENT: No facial edema or ecchymosis NECK: No neck tenderness. Good range of motion without nuchal rigidity CARDIOVASCULAR: Pulse regular RESPIRATORY: Clear and nonlabored GASTROINTESTINAL: Abdomen soft, non-tender MUSCULOSKELETAL: No extremity edema. Posterior tibial pulses 2+ bilateral. No joint tenderness or joint pain with range of motion in the upper and lower extremities NEUROLOGICAL: Awake and alert Oriented X 3 Speech is clear Conversant and appropriate Follow simple commands well Answers questions appropriately Reasonable judgment and insight Recent and remote memory are intact No evidence of anxiety or depression Pupils are equal and reactive to accommodation. Extra-ocular movements, visual blanchard to confrontation, facial motor testing are all intact. Sensation is intact to light touch in the upper extremities. Sensation is moderately diminished diffuse to light touch in the lower extremities Strength normal major flexion and extension groups all extremities . It is noted however that he has moderate difficulty with lower extremity coordination and difficulty initiating motor movements. Melanie's absent bilaterally No ankle clonus Plantar responses absent bilateral Fine motor movements intact upper extremities Laboratory Laboratory Tests Test 10/13/16 10/13/16 10/13/16 14:10 14:15 17:00 White Blood Count 6.2 Red Blood Count 4.27 Hemoglobin 12.7 Hematocrit 37.1 Mean Corpuscular Volume 87.0 Mean Corpuscular Hemoglobin 29.8 Mean Corpuscular Hemoglobin 34.2 Concent Red Cell Distribution Width 13.7 Platelet Count 322 Mean Platelet Volume 8.4 Neutrophils (%) (Auto) 78.6 Lymphocytes (%) (Auto) 16.1 Monocytes (%) (Auto) 4.3 Eosinophils (%) (Auto) 0.4 Basophils (%) (Auto) 0.6 Neutrophils # (Auto) 4.9 Lymphocytes # (Auto) 1.0 Monocytes # (Auto) 0.3 Eosinophils # (Auto) 0.0 Basophils # (Auto) 0.0 CBC Comment DIFF FINAL Differential Comment Prothrombin Time 11.3 Prothromb Time International 1.0 Ratio Activated Partial 37.2 Thromboplast Time Sodium Level 138 Potassium Level 3.8 Chloride Level 102 Carbon Dioxide Level 29.6 Anion Gap 6 Blood Urea Nitrogen 13 Creatinine 0.59 Estimat Glomerular Filtration 164 Rate Random Glucose 75 Calcium Level 9.3 Total Bilirubin 0.9 Aspartate Amino Transf 27 (AST/SGOT) Alanine Aminotransferase 23 (ALT/SGPT) Alkaline Phosphatase 50 Total Protein 8.4 Albumin 3.3 Lactic Acid Level 0.9 Urine Color YELLOW Urine Turbidity CLEAR Urine pH 6.0 Urine Specific [place] 1.028 Urine Protein TRACE Urine Glucose (UA) NEG Urine Ketones 40 Urine Occult Blood NEG Urine Nitrite NEG Urine Bilirubin NEG Urine Urobilinogen 2.0 Urine Leukocyte Esterase NEG Urine RBC LESS THAN 1 Urine WBC 1 Urine Mucus FEW Microscopic Urinalysis Comment CATH-CULT NOT IND Date/Time Procedure Status Source Growth 10/13/16 14:15 Aerobic Blood Culture Received Blood Peripheral Pending 10/13/16 14:15 Anaerobic Blood Culture Received Blood Peripheral Pending Result Diagram: 10/13/16 1410 10/13/16 1410 Imaging The patient's thoracic MRI scan 10/13/16 images are reviewed. The study reveals a large mass lesion consistent with epidural abscess at the midthoracic region with severe spinal canal compromise and cord compression. Lumbar Spine MRI 10/13/16 0000 Signed Impressions: Service Date/Time: Thursday, October 13, 2016 14:52 - CONCLUSION: Normal examination. Justin Garg Jr., MD Cervical Spine MRI 10/13/16 0000 Signed Impressions: Service Date/Time: Thursday, October 13, 2016 14:52 - CONCLUSION: 1. Diffuse asymmetric disc osteophyte complex to the left at C5-6 resulting in moderate left neural foraminal narrowing. 2. Minimal diffuse symmetric disc bulge at C6-7. 3. No evidence of abscess. Stanley Aviles MD Assessment and Plan Assessment and Plan Impression 1. Thoracic epidural abscess. Plan: Findings were discussed with the patient and with his mother. It is recommended that he proceed with urgent thoracic decompressive laminectomy for evacuation of epidural abscess and spinal cord decompression. The procedure has been explained. Risks and possible complications have been fully discussed including the risk of anesthesia, spinal fluid leak, spinal cord injury including edema or hemorrhage, recurrent or residual abscess or other infection. Also risk of developing osteomyelitis with vertebral compression or deformity which may require further surgery. The consent has been reviewed with the patient. All questions answered Tarun Montoya MD Oct 13, 2016 21:06
[2016-10-13] MEDS ORDERED: LIDOCAINE 1%/EPINEPHrine 1:100,000 SOLN 30 ML VIAL INFIL ONE (21:37)
[2016-10-14] VITALS (8 sets, daily range): BP systolic 127–137; BP diastolic 74–77; PULSE 67–74; RESP 16–18; TEMP 97–99.3; O2SAT 98–99
[2016-10-14] MEDS ORDERED: DO NOT ADM ANY ANTICOAGULANT DRUGS PRN (00:10)
[2016-10-14] MEDS ORDERED: NALOXONE HCL 0.4 MG/ML AMP IV PRN (00:15)
[2016-10-14] MEDS ORDERED: fentaNYL CITRATE 250 MCG/5 ML AMP ONE (00:16)
[2016-10-14] MEDS ORDERED: MIDAZOLAM HCL 2 MG/2 ML VIAL ONE (00:16)
--- NOTE | 2016-10-14 00:34 | PD.OP ---
Operative Report Date of Surgery: Oct 13, 2016 Preoperative Diagnosis: (1) Epidural abscess Thoracic epidural lesion-probable abscess Postoperative Diagnosis: (1) Epidural abscess Thoracic epidural lesion-probable infectious granulation tissue. Procedure: T6-T7-T8 decompressive semi-laminectomy, resection of epidural mass Use of high-power intraoperative microscope for epidural lesion resection Anesthesia: Gen. endotracheal Surgeon: Tarun Montoya Supervisor Phosphorus Processing(s): Shalom Keith Operation and Findings: Findings: Relatively dense granulation type tissue at the dorsal lateral epidural space primarily T6-8 levels. Procedure in detail: The patient was brought into the operating room and general endotracheal anesthesia induced without difficulty. GIULIANA hose and sequential compression devices were placed. Lines were established by anesthesia. The patient was positioned on the concentric Compa table with the side bolsters and all extremities appropriately padded. Appropriate time-out procedure was performed with all personnel present and in agreement. The intraoperative C-arm in AP and lateral views was used to carefully determine the T6, T7, and T8 levels 1% Xylocaine with epinephrine was used for local infiltration over the incision site which was made at the midline T6-T8 level. The incision was carried sharply down to the lumbodorsal fascia which was incised adjacent to the spinous processes on the left side. Romero elevator was used for subperiosteal elevation of paraspinous musculature and fascia away from the lamina and spinous process of T6, T7, T8 on the left side. The deep self-retaining retractor was placed. The appropriate levels were verified with intraoperative C-arm. Microscope was moved into place and used for the remainder of the procedure including the closure. At each level starting on the left side and then working across the midline to the opposite side, the TPS drill with a 5 mm bone bur followed by the 4 mm debbie bur was used to remove the inferior two thirds of the more cephalad lamina and the superior aspect of the more caudal lamina along with a moderate amount of the bilateral medial facet, taking care not to disrupt the integrity of the facet or pars intra-articularis. Both the inferior T6, superior T8, and portion of the inferior and superior T7 lamina were removed. The ligamentum flavum at each level was elevated away from the thecal sac with the thin ligament dissector and resected with the 15 blade knife and the Kerrison rongeur . A relatively dense epidural lesion which appeared consistent with postinfectious granulation tissue was encountered which was causing significant compression on the dorsal lateral thecal sac. The epidural lesion was gently elevated away from the thecal sac with the thin ligament dissector and the [place] dissector and removed with the micro-biopsy forceps and Kerrison rongeur. This was resected in a cranial and caudal direction until more normal epidural adipose tissue was encountered. The thecal sac and spinal canal appeared well decompressed at the end of the procedure. No spinal fluid leakage was encountered. The disc and annulus at each level was visualized to make sure that there was no significant disc displacement or herniation. Bleeding was carefully controlled with the bipolar forceps. A 7 mm flat fluted drain was left in place at the operative site and brought out through an incision in the mid thoracic region and secured to the skin with nylon suture and attached to a bulb suction. The closure was performed with 0 Vicryl interrupted for the deep and superficial fascia, with 3-0 Vicryl interrupted subcutaneous closure, and 4-0 Vicryl running subcuticular closure. A dressing of sterile Mastisol, Steri- Strips, and Primapore was placed. The patient was taken to recovery room in stable condition. All counts were correct at the end of the case. Estimated blood loss was 200 cc. Specimen of the epidural lesion was sent to pathology as well as microbiology for bacterial, fungal cultures. Tarun Montoya MD Oct 14, 2016 00:34
[2016-10-14] MEDS ORDERED: MORPHINE SULFATE 4 MG/ML INJ ONE (00:54)
[2016-10-14] MEDS: HYDROmorphone HCL 4 MG TAB PO PRN ×3 (02:40→20:53)
[2016-10-14] MEDS: VANCOMYCIN INJ 1,500 MG in SODIUM CHLORID 0.9% 500 ML INJ 500 ML IV SCH ×4 (03:47→21:32)
[2016-10-14] MEDS: SODIUM CHLOR 0.9% 1000 ML INJ 1,000 ML IV SCH ×2 (04:22→12:05)
[2016-10-14] MEDS: ACETAMINOPHEN/HYDROcodone 325 MG/10 MG TAB PO PRN (06:29)
[2016-10-14] MEDS: SODIUM CHLORIDE 0.9% FLUSH 10 ML FLUSH IV FLUSH SCH ×2 (08:50→20:53)
[2016-10-14] MEDS: DOCUSATE SODIUM 50 MG/SENNA 8.6 MG TAB PO SCH ×2 (08:50→20:54)
[2016-10-14] MEDS: cefTRIAXone INJ 2,000 MG in SODIUM CHLORIDE 0.9% INJ 100 ML IV SCH ×2 (08:50→20:53)
[2016-10-14] MEDS: MORPHINE SULFATE 4 MG/ML INJ IV PUSH PRN ×3 (09:00→15:12)
--- NOTE | 2016-10-14 11:38 | HHI.PR ---
Subjective Remarks Admission Notes: This is a pleasant 26 y/o male who is IV drug abuse, who came to ER with complaint of back pain, bilateral leg numbness and tingling sensation He was seen in Emergency room on October 07 2016 but did not complaint at that time of Neurological symptoms, He says he has been extremely weak and unable to move his lower extremities. He has not been able to walk, and had to call fire rescue to bring him into the emergency department. He is accompanied by his mother, who confirms this. He tells me that a few days ago, he lied and told our doctor that he was not IV drug user. However he does use IV drugs. He reports using IV Dilaudid 2-3 days ago. 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 He tells me he is constantly feeling tons of vibration from these large machines that he is using. He denies any bowel or bladder dysfunction. CT scan from October 07, 2016 CT scan of the C-spine that demonstrated early/mild lower cervical degenerative changes. There was mild left foraminal encroachment at C5/C6. No high-grade foraminal or spinal stenosis at any level. There was no evidence of acute disc herniation. CT scan of the T-spine demonstrated mild multifocal degenerative and suspected chronic Scheuermann's changes of thoracic spine. There was also mild kyphoscoliosis. No fracture or acute appearing malalignment. Mild bilateral foraminal stenosis from T7/T8-T10/T11, mostly on the basis of mild facet osteoarthritis. No spinal stenosis no acute disc herniation seen. Noncalcified nodule of the right upper lobe and follow-up noncontrast CT of the chest recommended 6 months. 10/14: Seen in his bedroom in the presence of his Mother Mrs. Emily Acosta, With Diagnosis of Thoracic epidural lesion probable infectious granulation tissue, status post T6-T7-T8 decompressive semi-laminectomy, resection of epidural mass Use of high-power intraoperative microscope for epidural lesion resection by Doctor Tarun Montoya 10/13/16, no nausea, vomit or diarrhea, improving Neurological symptoms. Objective Vital Signs Date Time Temp Pulse Resp B/P Pulse Ox O2 Delivery O2 Flow Rate FiO2 10/14/16 09:21 20 10/14/16 08:00 97.6 73 16 127/74 98 10/14/16 07:47 18 10/14/16 04:00 97.4 67 16 136/77 98 10/14/16 04:00 16 10/14/16 02:01 97.0 72 16 136/74 99 10/14/16 01:30 71 16 128/73 100 Room Air 10/14/16 01:15 70 22 128/71 100 Room Air 10/14/16 01:00 67 20 131/71 100 Room Air 10/14/16 00:45 68 22 132/70 100 Room Air 10/14/16 00:30 75 18 130/71 100 Room Air 10/14/16 00:15 82 14 131/73 100 Nasal Cannula 2 10/14/16 00:10 97.5 74 16 109/56 100 Nasal Cannula 2 10/13/16 16:16 74 18 150/96 100 Room Air 10/13/16 16:16 74 18 10/13/16 14:06 97 Room Air I/O 10/13/16 10/13/16 10/13/16 10/14/16 10/14/16 10/14/16 07:00 15:00 23:00 07:00 15:00 23:00 Intake Total 2399 ml 240 ml Output Total 265 ml Balance 2134 ml 240 ml Intake Oral 490 ml 240 ml IV Total 809 ml Other 1100 ml Output Drainage Total 65 ml Estimated Blood Loss 200 ml # Voids 0 # Bowel Movements 0 Result Diagram: 10/13/16 1410 10/13/16 1410 Imaging Last Impressions Lumbar Spine MRI 10/13/16 0000 Signed Impressions: Service Date/Time: Thursday, October 13, 2016 14:52 - CONCLUSION: Normal examination. Justin Garg Jr., MD Cervical Spine MRI 10/13/16 0000 Signed Impressions: Service Date/Time: Thursday, October 13, 2016 14:52 - CONCLUSION: 1. Diffuse asymmetric disc osteophyte complex to the left at C5-6 resulting in moderate left neural foraminal narrowing. 2. Minimal diffuse symmetric disc bulge at C6-7. 3. No evidence of abscess. Stanley Aviles MD Procedures With Diagnosis of Thoracic epidural lesion probable infectious granulation tissue, status post T6-T7-T8 decompressive semi-laminectomy, resection of epidural mass Use of high-power intraoperative microscope for epidural lesion resection by Doctor Tarun Montoya 10/13/16 Other Results Laboratory Tests Test 10/13/16 10/13/16 10/13/16 14:10 14:15 17:00 White Blood Count 6.2 TH/MM3 Red Blood Count 4.27 MIL/MM3 Hemoglobin 12.7 GM/DL Hematocrit 37.1 % Mean Corpuscular Volume 87.0 FL Mean Corpuscular Hemoglobin 29.8 PG Mean Corpuscular Hemoglobin 34.2 % Concent Red Cell Distribution Width 13.7 % Platelet Count 322 TH/MM3 Mean Platelet Volume 8.4 FL Neutrophils (%) (Auto) 78.6 % Lymphocytes (%) (Auto) 16.1 % Monocytes (%) (Auto) 4.3 % Eosinophils (%) (Auto) 0.4 % Basophils (%) (Auto) 0.6 % Neutrophils # (Auto) 4.9 TH/MM3 Lymphocytes # (Auto) 1.0 TH/MM3 Monocytes # (Auto) 0.3 TH/MM3 Eosinophils # (Auto) 0.0 TH/MM3 Basophils # (Auto) 0.0 TH/MM3 CBC Comment DIFF FINAL Differential Comment Prothrombin Time 11.3 SEC Prothromb Time International 1.0 RATIO Ratio Activated Partial 37.2 SEC Thromboplast Time Sodium Level 138 MEQ/L Potassium Level 3.8 MEQ/L Chloride Level 102 MEQ/L Carbon Dioxide Level 29.6 MEQ/L Anion Gap 6 MEQ/L Blood Urea Nitrogen 13 MG/DL Creatinine 0.59 MG/DL Estimat Glomerular Filtration 164 ML/MIN Rate Random Glucose 75 MG/DL Calcium Level 9.3 MG/DL Total Bilirubin 0.9 MG/DL Aspartate Amino Transf 27 U/L (AST/SGOT) Alanine Aminotransferase 23 U/L (ALT/SGPT) Alkaline Phosphatase 50 U/L Total Protein 8.4 GM/DL Albumin 3.3 GM/DL Lactic Acid Level 0.9 mmol/L Urine Color YELLOW Urine Turbidity CLEAR Urine pH 6.0 Urine Specific [place] 1.028 Urine Protein TRACE mg/dL Urine Glucose (UA) NEG mg/dL Urine Ketones 40 mg/dL Urine Occult Blood NEG Urine Nitrite NEG Urine Bilirubin NEG Urine Urobilinogen 2.0 MG/DL Urine Leukocyte Esterase NEG Urine RBC LESS THAN 1 /hpf Urine WBC 1 /hpf Urine Mucus FEW /lpf Microscopic Urinalysis Comment CATH-CULT NOT IND Urine Opiates Screen POS Urine Barbiturates Screen NEG Urine Amphetamines Screen NEG Urine Benzodiazepines Screen NEG Urine Cocaine Screen NEG Urine Cannabinoids Screen POS Objective Remarks GENERAL: Obesity, No acute distress. HEAD: Normocephalic and atraumatic. NECK: Supple, trachea midline. No JVD. CARDIOVASCULAR: Regular rate and rhythm without murmurs, gallops, or rubs. RESPIRATORY: Breath sounds equal bilaterally. No accessory muscle use. No rhonchi or rales. GASTROINTESTINAL: Abdomen soft, non-tender, nondistended. no rebound or guarding EXTREMITIES: No cyanosis or edema. patient has difficulty moving lower extremities NEURO: No focal deficits. PSYCH: Alert and oriented x 3. No Medications and IVs Current Medications Medications (Trade) Dose Ordered Sig/Rodrigue Route Start Time Stop Time Status Last Admin (NS 1000 ml Inj) 1,000 ml @ 100 mls/hr Q10H IV 10/13/16 18:22 10/14/16 04:22 (NS Flush) 2 ml UNSCH PRN IV FLUSH 10/13/16 18:30 (NS Flush) 2 ml BID IV FLUSH 10/13/16 21:00 10/14/16 08:50 (Tylenol) 650 mg Q4H PRN PO 10/13/16 18:30 (Zofran Inj) 4 mg Q6H PRN IVP 10/13/16 18:30 (Angela-Colace) 1 tab BID PO 10/13/16 21:00 10/14/16 08:50 (Milk Of Magnesia Liq) 30 ml Q12H PRN PO 10/13/16 18:30 (Senokot) 17.2 mg Q12H PRN PO 10/13/16 18:30 (Dulcolax Supp) 10 mg DAILY PRN RECTAL 10/13/16 18:30 Lactulose 30 ml 30 ml DAILY PRN PO 10/13/16 18:30 Vancomycin HCl 1500 mg/Sodium Chloride 515 ml @ 257.5 mls/ hr Q8H IV 10/13/16 20:00 10/14/16 04:00 Pharmacy Profile Note 0 ml @ 0 mls/hr UNSCH OTHER 10/13/16 18:45 (Rocephin Inj/NS Inj) 100 ml @ 200 mls/hr Q12H IV 10/13/16 20:00 10/14/16 08:50 (Morphine Inj) 2 mg Q3H PRN IV PUSH 10/13/16 19:00 10/14/16 09:00 Miscellaneous Information SPECIFIC LAB TO BE DRAWN:VANCO TROUGH DATE TO... ONCE ONCE .XX 10/14/16 19:45 10/14/16 19:46 ([place] 10-325 Mg) 1 tab Q4H PRN PO 10/14/16 00:15 10/14/16 06:29 (Dilaudid) 4 mg Q4H PRN PO 10/14/16 00:30 10/14/16 02:40 (Narcan Inj) 0.4 mg UNSCH PRN IV 10/14/16 00:15 Miscellaneous Information ALL NURSING DEPARTME... UNSCH PRN .XX 10/14/16 00:10 10/15/16 00:09 A/P Assessment and Plan 1. Thoracic epidural lesion probable infectious granulation tissue, status post T6-T7-T8 decompressive semi-laminectomy, resection of epidural mass Use of high-power intraoperative microscope for epidural lesion resection by Doctor Tarun Montoya 10/13/16 continue Empiric management with Vancomycin and Ceftriaxone. follow blood cultures, Echocardiogram. ID specialist consult 2. Probable Hepatitis asked for Hepatitis Profile, HIV, RPR. 3. Tobacco dependence/Polysubstance abuse strongly recommended to stop behavior. 4. Obesity strongly recommended diet and exercise. Discussed with Patient and his Mother Mrs. Emily Acosta, all questions answered to the best of my abilities. Code Status Full Code DVT prophylaxis as per Neurosurgery. Discharge Planning Once cleared by specialists. Donald Knutson MD Oct 14, 2016 11:38 ID specialist consult Neurosurgical consult Echocardiogram Vancomycin and Ceftriaxone IV fluids Discussed with Patient and Family Code Status Full Code Discussed Condition With Donald Knutson MD Oct 14, 2016 11:38
--- NOTE | 2016-10-14 12:55 | MB ---
cc: CHINO PACE M.D., FRANKLYN F. MD DATE OF CONSULTATION: 10/14/[address] Ahmadi. REASON FOR CONSULTATION Spinal abscess. HISTORY OF PRESENT ILLNESS This is a 26-year-old white male who presented to the emergency department on 10/13/2016 after his legs gave way and he developed pain in the lower back and also numbness and tingling of the legs. The patient had been evaluated prior to that on October 07 in the emergency department and he had a CAT scan that did not show any abnormality. He apparently has been having back pain for the past couple of weeks. The patient denies fever, chills, nausea or vomiting. 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 He has not been able to work regularly for the last couple of weeks. An MRI was performed of the thoracic spine which showed extensive posterior epidural enhancing collection extending from the T6-7 to T9-10 level. The patient was taken to surgery for decompressive laminectomy and resection of epidural mass involving T6, T7 and T8 levels. Culture was taken and the result is pending. Blood culture from yesterday has no growth in one day. The patient is afebrile. White blood cell count is normal. The patient has positive toxicology screen for opiates and cannabinoids. He is noted to be an IV drug user and uses IV Dilaudid. PAST MEDICAL HISTORY Hepatitis C. PAST SURGICAL HISTORY No prior surgeries. ALLERGIES NAPROXEN. MEDICATIONS 1. Vancomycin. 2. Ceftriaxone. 3. Morphine sulfate p.r.n. 4. [place] 10, p.r.n. SOCIAL HISTORY The patient smokes a pack of cigarettes a day. Positive IV drugs. Occasional alcohol. Positive marijuana use and IV Dilaudid. FAMILY HISTORY Noncontributory. REVIEW OF SYSTEMS Pertinent as mentioned above in the history of present illness. Otherwise negative 10-point review. PHYSICAL EXAMINATION GENERAL: A well-developed male who is in no acute distress. He is awake, alert and oriented. VITAL SIGNS: Temperature 97.6, BP 127/74, respirations 20, heart rate 73. HEAD, EYES, EARS, NOSE, AND THROAT: Head is atraumatic. Extraocular movements grossly intact. Pupils reactive to light. No icterus. Oropharynx has no visible lesions. NECK: Supple without adenopathy. LUNGS: Clear breath sounds. HEART: Regular S1 and S2 without murmurs, rubs or gallops. ABDOMEN: Bowel sounds are present. Soft. No tenderness appreciated. RECTAL: Not performed. EXTREMITIES: No clubbing, cyanosis or edema. SKIN: No rash. NEUROLOGIC: Decreased strength in the lower extremities, otherwise nonfocal. LABORATORY WBC 6.2, platelets 322, 78% neutrophils, hemoglobin 12.7. Creatinine 0.59, BUN 13. IMPRESSION 1. Thoracic spine epidural abscess. Patient is status post laminectomy and evacuation of the abscess. Cultures pending. 2. Intravenous drug use. RECOMMENDATIONS 1. Continue vancomycin. 2. Continue ceftriaxone. 3. Monitor wound culture. 4. Monitor blood cultures. 5. Monitor clinical status. 6. Obtain a sedimentation rate. Thank you for this consultation. I will monitor the patient's progress and cultures and will make further recommendations on follow-up. Alexys Byrne MD FD/JASON /12:24 PM /12:41 PM
--- NOTE | 2016-10-14 15:59 | HHI.NSPN ---
(Christopher Rivers) History Chief Complaint: Back pain (Christopher Rivers) Interval History 10/13: 26-year-old male presents to the emergency room with complaint of approximately 2 weeks of progressive severe thoracic pain. He was seen in the emergency room approximately a week ago and a CT scan of the spine obtained which was within normal limits. He will return to the emergency room today with further progression of pain symptoms. He complains of a burning or stinging sensation across his abdomen for the past day. He also complains of intermittent pain radiating to the lower extremities for the past few days. He has had no definite problems with bowel or bladder dysfunction. No definite weakness in the lower extremities although he complains of anterior 3 days of diffuse numbness in the legs. No spasms in the lower extremities. No complaint of upper extremity pain and weakness numbness or paresthesia. He states that he has been able to walk today but only with rather severe pain. The patient was urgently taken to the operating room for aT6-T7-T8 decompressive semi-laminectomy with resection of epidural mass using a high- power intraoperative microscope. Post-operatively the patient went to a regular med/surg floor. 10/14: The patient is awake and alert watching TV with his mother. He states he is "hurting" and endorses pain to the back. He states the numbness to the lower extremities is better. (Christopher Rivers) System Review Comments Constitutional: He denies any fever or chills. Respiratory: Patient denies any shortness of breath or productive cough. Cardiovascular: Patient denies any chest pain, palpitations or irregular heartbeat. Gastrointestinal: Patient complains of intermittent nausea. He denies any abdominal pain, vomiting or incontinence of stool. Genitourinary: Patient denies any incontinence of urine. Musculoskeletal: Patient complains of back pain to the surgical site. He denies any pain or weakness to the extremities. Neurologic: Patient states he has numbness to the lower extremities that is better. He denies any headache, dizziness or tingling. (Christopher Rivers) Exam Results Vital Signs Date Time Temp Pulse Resp B/P Pulse Ox O2 Delivery O2 Flow Rate FiO2 10/14/16 14:24 99 21 10/14/16 12:13 18 10/14/16 12:00 99.3 70 137/74 10/14/16 01:30 Room Air 10/14/16 00:15 2 (Christopher Rivers) Physical Examination GENERAL: Patient is awake & alert watching TV with his mother. He appears mildly uncomfortable but not in distress. His affect is somewhat flat. SKIN: Warm, dry & intact except for upper thoracic surgical incision, no rashes , ulcerations or other lesions. HEENT: Normocephalic, atraumatic. NECK: Full AROM w/o pain, no JVD, trachea midline. CARDIOVASCULAR: S1S2 w/RRR w/o M/G/R, radial & pedal pulses 2+ bilaterally, cap refill < 2 sec, no pedal edema. RESPIRATORY: CTAB w/o W/R/R, equal excursion, nonlaboured, on RA. GASTROINTESTINAL: Abdomen soft, nontender, positive bowel sounds. MUSCULOSKELETAL: PEREIRA w/o difficulty, no evident deformity or clubbing. TTP at thoracic surgical incision, dressing intact w/o any shadowing noted, DAVID drain to bulb suction w/serosanguinous drainage. NEUROLOGICAL: AAOx3. Speech clear & appropriate. Follows simple commands w/o difficulty. Sensation intact to light touch to BUE & LLE, mildly decreased throughout RLE but better per patient. Motor strength 5/5 to all major flexion & extension muscle groups. (Christopher Rivers) Medical Decision Making Impression and Plan Impression: (1) Epidural abscess Thoracic epidural lesion-probable infectious granulation tissue. The patient is doing well post-operatively, his motor function remains intact and his sensation has improved. DAVID drain output 65 mL. Blood cultures x2 w/o growth 1 day. Wound cultures in process. POD #1 () s/p : T6-T7-T8 decompressive semi-laminectomy, resection of epidural mass w/high- power intraoperative microscope. Plan: Primary management per Hospitalist. Antibiotics per Infectious Disease. Mobilise patient w/assistance as needed. PT eval & tx. Diet as tolerated. Pain meds. Nicotine patch at patient's request. (Christopher Rivers) Attending Statement The exam, history, and the medical decision-making described in the above note were completed with the assistance of the mid-level provider. I reviewed and agree with the findings presented. I attest that I had a [id number] encounter with the patient on the same day, and personally performed and documented my assessment and findings in the medical record. Stable neurologic exam postoperative Moderate drain output Begin therapy (Tarun Montoya MD) Christopher Rivers Oct 14, 2016 15:59 Tarun Montoya MD Dec 07, 2016 07:29
[2016-10-14] MEDS ORDERED: NICOTINE 14 MG/24 HR PATCH T-DERMAL SCH (16:45)
[2016-10-14 17:14] LABS: ALT (GPT) 19 U/L (12-78); ANION GAP 6 MEQ/L (5-15); AST (GOT) 21 U/L (15-37); BICARBONATE 27.3 MEQ/L (21.0-32.0); BLOOD UREA NITROGEN 7 MG/DL (7-18); CHLORIDE 105 MEQ/L (98-107); GLOMERULAR FILTRATION RATE 164 ML/MIN (>89); POTASSIUM 3.7 MEQ/L (3.5-5.1); SODIUM (NA) 138 MEQ/L (136-145)
[2016-10-14] MEDS: NICOTINE 21 MG/24 HR PATCH T-DERMAL SCH (17:15)
[2016-10-14 17:17] LABS: ALKALINE PHOSPHATASE 43 U/L (45-117); TOTAL BILIRUBIN ADULT 0.4 MG/DL (0.2-1.0)
[2016-10-14] MEDS: HYDROmorphone HCL PF 1 MG/ML VIAL IV PUSH PRN ×2 (18:54→22:24)
[2016-10-14] MEDS ORDERED: PHARMACY ORDERED LAB ONE (19:45)
[2016-10-15] VITALS (10 sets, daily range): BP systolic 120–141; BP diastolic 74–89; PULSE 68–80; RESP 16–18; TEMP 96.6–99.7; O2SAT 97–99
[2016-10-15] MEDS ORDERED: HYDROmorphone HCL PF 1 MG/ML VIAL IV PUSH ONE
[2016-10-15] MEDS: SODIUM CHLOR 0.9% 1000 ML INJ 1,000 ML IV SCH ×2 (01:45→08:47)
[2016-10-15] MEDS: VANCOMYCIN INJ 1,500 MG in SODIUM CHLORID 0.9% 500 ML INJ 500 ML IV SCH ×3 (03:20→19:58)
[2016-10-15] MEDS: ACETAMINOPHEN/HYDROcodone 325 MG/10 MG TAB PO PRN (03:20)
[2016-10-15] MEDS: HYDROmorphone HCL PF 1 MG/ML VIAL IV PUSH PRN ×5 (04:40→21:08)
[2016-10-15] MEDS: HYDROmorphone HCL 4 MG TAB PO PRN ×5 (07:32→23:59)
[2016-10-15] MEDS: cefTRIAXone INJ 2,000 MG in SODIUM CHLORIDE 0.9% INJ 100 ML IV SCH (08:44)
[2016-10-15] MEDS: DOCUSATE SODIUM 50 MG/SENNA 8.6 MG TAB PO SCH ×2 (08:45→19:59)
[2016-10-15] MEDS: NICOTINE 21 MG/24 HR PATCH T-DERMAL SCH (08:45)
[2016-10-15] MEDS: REMOVE OLD PATCH T-DERMAL SCH ×2 (08:45→08:47)
[2016-10-15] MEDS: SODIUM CHLORIDE 0.9% FLUSH 10 ML FLUSH IV FLUSH SCH ×2 (08:47→19:59)
--- NOTE | 2016-10-15 12:13 | HHI.IDPN ---
Note Infectious Disease Note Patient notes back pain 8/10 scale. Legs gave way on attempting to take steps this am with PT. Afebrile. PAST MEDICAL HISTORY Hepatitis C. ALLERGIES NAPROXEN. ANTIBIOTICS 1. Vancomycin. 2. Ceftriaxone. OBJECTIVE: Vital Signs Date Time Temp Pulse Resp B/P Pulse Ox O2 Delivery O2 Flow Rate FiO2 10/15/16 11:41 98 21 10/15/16 08:00 96.7 69 16 137/79 99 10/15/16 04:00 97.3 74 18 128/74 97 10/15/16 00:00 99.7 78 18 120/75 98 10/14/16 20:38 98 21 10/14/16 20:00 99.3 74 16 137/77 98 10/14/16 18:21 18 10/14/16 16:00 99.0 73 16 132/77 98 10/14/16 15:41 18 10/14/16 14:24 99 21 10/14/16 10/14/16 10/15/16 15:00 23:00 07:00 Intake Total 720 ml 720 ml 960 ml Output Total 1250 ml 670 ml Balance 720 ml -530 ml 290 ml Intake Oral 720 ml 720 ml 960 ml Output Urine Total 1200 ml 650 ml Drainage Total 50 ml 20 ml # Voids 2 # Bowel Movements 0 Laboratory Tests Test 10/13/16 10/15/16 14:10 09:35 White Blood Count 6.2 TH/MM3 Red Blood Count 4.27 MIL/MM3 Hemoglobin 12.7 GM/DL Hematocrit 37.1 % Mean Corpuscular Volume 87.0 FL Mean Corpuscular Hemoglobin 29.8 PG Mean Corpuscular Hemoglobin 34.2 % Concent Red Cell Distribution Width 13.7 % Platelet Count 322 TH/MM3 Mean Platelet Volume 8.4 FL Neutrophils (%) (Auto) 78.6 % Lymphocytes (%) (Auto) 16.1 % Monocytes (%) (Auto) 4.3 % Eosinophils (%) (Auto) 0.4 % Basophils (%) (Auto) 0.6 % Neutrophils # (Auto) 4.9 TH/MM3 Lymphocytes # (Auto) 1.0 TH/MM3 Monocytes # (Auto) 0.3 TH/MM3 Eosinophils # (Auto) 0.0 TH/MM3 Basophils # (Auto) 0.0 TH/MM3 CBC Comment DIFF FINAL Differential Comment Erythrocyte Sedimentation Rate 82 mm/hr Laboratory Tests Test 10/13/16 10/13/16 10/14/16 14:10 14:15 16:50 Sodium Level 138 MEQ/L 138 MEQ/L Potassium Level 3.8 MEQ/L 3.7 MEQ/L Chloride Level 102 MEQ/L 105 MEQ/L Carbon Dioxide Level 29.6 MEQ/L 27.3 MEQ/L Anion Gap 6 MEQ/L 6 MEQ/L Blood Urea Nitrogen 13 MG/DL 7 MG/DL Creatinine 0.59 MG/DL 0.59 MG/DL Estimat Glomerular Filtration 164 ML/MIN 164 ML/MIN Rate Random Glucose 75 MG/DL 89 MG/DL Calcium Level 9.3 MG/DL 8.7 MG/DL Total Bilirubin 0.9 MG/DL 0.4 MG/DL Aspartate Amino Transf 27 U/L 21 U/L (AST/SGOT) Alanine Aminotransferase 23 U/L 19 U/L (ALT/SGPT) Alkaline Phosphatase 50 U/L 43 U/L Total Protein 8.4 GM/DL 7.7 GM/DL Albumin 3.3 GM/DL 2.8 GM/DL Lactic Acid Level 0.9 mmol/L Microbiology Date/Time Procedure Status Source Growth 10/13/16 14:15 Aerobic Blood Culture - Preliminary Resulted Blood Peripheral NO GROWTH IN 2 DAYS 10/13/16 14:15 Anaerobic Blood Culture - Preliminary Resulted Blood Peripheral NO GROWTH IN 2 DAYS 10/13/16 14:15 Aerobic Blood Culture - Preliminary Resulted Blood Peripheral NO GROWTH IN 2 DAYS 10/13/16 14:15 Anaerobic Blood Culture - Preliminary Resulted Blood Peripheral NO GROWTH IN 2 DAYS 10/13/16 23:14 Gram Stain - Final Resulted Abscess Back 10/13/16 23:14 Wound Culture - Preliminary Resulted Pseudomonas Species 10/13/16 23:14 Acid Fast Stain - Final Resulted Abscess Back NO ACID FAST BACILLI SEEN 10/13/16 23:14 Mycobacterial Culture Resulted Abscess Back Pending 10/13/16 23:14 Fungal Smear - Final Resulted Abscess Back NO FUNGAL ELEMENTS SEEN. 10/13/16 23:14 Fungal Culture Resulted Abscess Back Pending PHYSICAL EXAMINATION GENERAL: No acute distress. He is awake, alert and oriented. HEAD, EYES, EARS, NOSE, AND THROAT: No icterus. Oropharynx has no visible lesions. NECK: Supple without adenopathy. LUNGS: Clear breath sounds. HEART: Regular S1 and S2 without murmurs, rubs or gallops. BACK: Drainage catheter has serous-sanguinous drainage in catheter. ABDOMEN: Bowel sounds are present. Soft. EXTREMITIES: No clubbing, cyanosis or edema. SKIN: No rash. NEUROLOGIC: Decreased strength in the lower extremities, otherwise nonfocal. IMPRESSION 1. Thoracic spine epidural abscess. Patient is status post laminectomy and evacuation of the abscess. Cultures pending. Prelim. pseudomonas. 2. Intravenous drug use. RECOMMENDATIONS 1. Continue vancomycin. 2. Stop ceftriaxone. 3. Start Cefepime. 4. Monitor wound culture. 4. Monitor blood cultures. 5. Monitor clinical status. Alexys Byrne MD Oct 15, 2016 12:13
--- NOTE | 2016-10-15 13:39 | HHI.FF ---
Face to Face Verification Diagnosis: (1) Epidural abscess (2) Back pain Physical Therapy Order: Evaluate and Treat, Improve ambulation, Strength and gait training Home Health Nursing Order: Medical education Signs/symptoms of disease process Medication education-adverse effect Wound care and dressing changes Nursing assessment with vital signs IV medication administration I have seen patient Christian Greenfield on 10/15/16. My clinical findings support the need for the requested home health care services because: Infection w/ risk of complications Injectable med education/admin I certify that my clinical findings support that this patient is homebound because: Post-op weakness Unsafe to leave home unassisted Unable to use public transportation Donald Knutson MD Oct 15, 2016 13:38
--- NOTE | 2016-10-15 13:40 | HHI.PR ---
Subjective Remarks Admission Notes: This is a pleasant 26 y/o male who is IV drug abuse, who came to ER with complaint of back pain, bilateral leg numbness and tingling sensation He was seen in Emergency room on October 07 2016 but did not complaint at that time of Neurological symptoms, He says he has been extremely weak and unable to move his lower extremities. He has not been able to walk, and had to call fire rescue to bring him into the emergency department. He is accompanied by his mother, who confirms this. He tells me that a few days ago, he lied and told our doctor that he was not IV drug user. However he does use IV drugs. He reports using IV Dilaudid 2-3 days ago. 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 He tells me he is constantly feeling tons of vibration from these large machines that he is using. He denies any bowel or bladder dysfunction. CT scan from October 07, 2016 CT scan of the C-spine that demonstrated early/mild lower cervical degenerative changes. There was mild left foraminal encroachment at C5/C6. No high-grade foraminal or spinal stenosis at any level. There was no evidence of acute disc herniation. CT scan of the T-spine demonstrated mild multifocal degenerative and suspected chronic Scheuermann's changes of thoracic spine. There was also mild kyphoscoliosis. No fracture or acute appearing malalignment. Mild bilateral foraminal stenosis from T7/T8-T10/T11, mostly on the basis of mild facet osteoarthritis. No spinal stenosis no acute disc herniation seen. Noncalcified nodule of the right upper lobe and follow-up noncontrast CT of the chest recommended 6 months. 10/14: Seen in his bedroom in the presence of his Mother Mrs. Emily Acosta, With Diagnosis of Thoracic epidural lesion probable infectious granulation tissue, status post T6-T7-T8 decompressive semi-laminectomy, resection of epidural mass Use of high-power intraoperative microscope for epidural lesion resection by Doctor Tarun Montoya 10/13/16, improving Neurological symptoms. 10/15: Stable in his bedroom, asking for pain medicine was explained he has Narcotic dependence and may go into respiratory insufficiency if continue increasing dosages of Narcotics, as per Neurosurgery the patient doing well post op DAVID draining, his Mother and both grandfather and grandmother in the room. no nausea, vomit or diarrhea yes for constipation Objective Vital Signs Date Time Temp Pulse Resp B/P Pulse Ox O2 Delivery O2 Flow Rate FiO2 10/15/16 12:00 97.2 76 18 133/86 99 10/15/16 11:41 98 21 10/15/16 08:00 96.7 69 16 137/79 99 10/15/16 04:00 97.3 74 18 128/74 97 10/15/16 00:00 99.7 78 18 120/75 98 10/14/16 20:38 98 21 10/14/16 20:00 99.3 74 16 137/77 98 10/14/16 18:21 18 10/14/16 16:00 99.0 73 16 132/77 98 10/14/16 15:41 18 10/14/16 14:24 99 21 I/O 10/14/16 10/14/16 10/14/16 10/15/16 10/15/16 10/15/16 07:00 15:00 23:00 07:00 15:00 23:00 Intake Total 2399 ml 720 ml 720 ml 960 ml Output Total 265 ml 1250 ml 670 ml 1075 ml Balance 2134 ml 720 ml -530 ml 290 ml -1075 ml Intake Oral 490 ml 720 ml 720 ml 960 ml IV Total 809 ml Other 1100 ml Output Urine Total 1200 ml 650 ml 1075 ml Drainage Total 65 ml 50 ml 20 ml Estimated Blood Loss 200 ml # Voids 0 2 # Bowel Movements 0 0 Result Diagram: 10/13/16 1410 10/14/16 1650 Imaging Last Impressions Thoracic Spine MRI 10/13/16 0000 Signed Impressions: Service Date/Time: Thursday, October 13, 2016 14:52 - CONCLUSION: 1. Extensive posterior epidural enhancing collection which extends from the T6-7 level to the T9-10 level and measures 7 mm AP x 16 mm transverse x 100 mm sagittal dimension and results in significant cord compression which is most severe at T7-8. This collection likely represents epidural abscess. Clinical correlation is recommended. 2. 3. The findings were called immediately to Deepti Mcconnell PA-C at 4: 4. 45 PM on 10/13/2016. Stanley Aviles MD Lumbar Spine MRI 10/13/16 0000 Signed Impressions: Service Date/Time: Thursday, October 13, 2016 14:52 - CONCLUSION: Normal examination. Justin Garg Jr., MD Cervical Spine MRI 10/13/16 0000 Signed Impressions: Service Date/Time: Thursday, October 13, 2016 14:52 - CONCLUSION: 1. Diffuse asymmetric disc osteophyte complex to the left at C5-6 resulting in moderate left neural foraminal narrowing. 2. Minimal diffuse symmetric disc bulge at C6-7. 3. No evidence of abscess. Stanley Aviles MD Procedures With Diagnosis of Thoracic epidural lesion probable infectious granulation tissue, status post T6-T7-T8 decompressive semi-laminectomy, resection of epidural mass Use of high-power intraoperative microscope for epidural lesion resection by Doctor Tarun Montoya 10/13/16 Other Results Laboratory Tests Test 10/13/16 10/13/16 10/13/16 10/14/16 14:10 14:15 17:00 16:40 White Blood Count 6.2 TH/MM3 Red Blood Count 4.27 MIL/MM3 Hemoglobin 12.7 GM/DL Hematocrit 37.1 % Mean Corpuscular Volume 87.0 FL Mean Corpuscular Hemoglobin 29.8 PG Mean Corpuscular Hemoglobin 34.2 % Concent Red Cell Distribution Width 13.7 % Platelet Count 322 TH/MM3 Mean Platelet Volume 8.4 FL Neutrophils (%) (Auto) 78.6 % Lymphocytes (%) (Auto) 16.1 % Monocytes (%) (Auto) 4.3 % Eosinophils (%) (Auto) 0.4 % Basophils (%) (Auto) 0.6 % Neutrophils # (Auto) 4.9 TH/MM3 Lymphocytes # (Auto) 1.0 TH/MM3 Monocytes # (Auto) 0.3 TH/MM3 Eosinophils # (Auto) 0.0 TH/MM3 Basophils # (Auto) 0.0 TH/MM3 CBC Comment DIFF FINAL Differential Comment Prothrombin Time 11.3 SEC Prothromb Time International 1.0 RATIO Ratio Activated Partial 37.2 SEC Thromboplast Time Lactic Acid Level 0.9 mmol/L Urine Color YELLOW Urine Turbidity CLEAR Urine pH 6.0 Urine Specific [place] 1.028 Urine Protein TRACE mg/dL Urine Glucose (UA) NEG mg/dL Urine Ketones 40 mg/dL Urine Occult Blood NEG Urine Nitrite NEG Urine Bilirubin NEG Urine Urobilinogen 2.0 MG/DL Urine Leukocyte Esterase NEG Urine RBC LESS THAN 1 /hpf Urine WBC 1 /hpf Urine Mucus FEW /lpf Microscopic Urinalysis Comment CATH-CULT NOT IND Urine Opiates Screen POS Urine Barbiturates Screen NEG Urine Amphetamines Screen NEG Urine Benzodiazepines Screen NEG Urine Cocaine Screen NEG Urine Cannabinoids Screen POS Hepatitis A IgM Antibody NEGATIVE Hepatitis B Surface Antigen NEGATIVE Hepatitis B Core IgM Antibody NEGATIVE Hepatitis C Antibody REACTIVE Test 10/14/16 10/14/16 10/15/16 16:50 21:04 09:35 Sodium Level 138 MEQ/L Potassium Level 3.7 MEQ/L Chloride Level 105 MEQ/L Carbon Dioxide Level 27.3 MEQ/L Anion Gap 6 MEQ/L Blood Urea Nitrogen 7 MG/DL Creatinine 0.59 MG/DL Estimat Glomerular Filtration 164 ML/MIN Rate Random Glucose 89 MG/DL Calcium Level 8.7 MG/DL Total Bilirubin 0.4 MG/DL Aspartate Amino Transf 21 U/L (AST/SGOT) Alanine Aminotransferase 19 U/L (ALT/SGPT) Alkaline Phosphatase 43 U/L Total Protein 7.7 GM/DL Albumin 2.8 GM/DL Vancomycin Level Trough 9.4 MCG/ML Erythrocyte Sedimentation Rate 82 mm/hr Objective Remarks GENERAL: Obesity, No acute distress. HEAD: Normocephalic and atraumatic. NECK: Supple, trachea midline. No JVD. CARDIOVASCULAR: Regular rate and rhythm without murmurs, gallops, or rubs. RESPIRATORY: Breath sounds equal bilaterally. No accessory muscle use. No rhonchi or rales. GASTROINTESTINAL: Abdomen soft, non-tender, nondistended. no rebound or guarding EXTREMITIES: No cyanosis or edema. patient has difficulty moving lower extremities NEURO: No focal deficits. PSYCH: Alert and oriented x 3. No Medications and IVs Current Medications Medications (Trade) Dose Ordered Sig/Rodrigue Route Start Time Stop Time Status Last Admin (NS 1000 ml Inj) 1,000 ml @ 100 mls/hr Q10H IV 10/13/16 18:22 10/15/16 08:47 (NS Flush) 2 ml UNSCH PRN IV FLUSH 10/13/16 18:30 (NS Flush) 2 ml BID IV FLUSH 10/13/16 21:00 10/15/16 08:47 (Tylenol) 650 mg Q4H PRN PO 10/13/16 18:30 (Zofran Inj) 4 mg Q6H PRN IVP 10/13/16 18:30 (Angela-Colace) 1 tab BID PO 10/13/16 21:00 10/15/16 08:45 (Milk Of Magnesia Liq) 30 ml Q12H PRN PO 10/13/16 18:30 (Senokot) 17.2 mg Q12H PRN PO 10/13/16 18:30 (Dulcolax Supp) 10 mg DAILY PRN RECTAL 10/13/16 18:30 Lactulose 30 ml 30 ml DAILY PRN PO 10/13/16 18:30 Vancomycin HCl 1500 mg/Sodium Chloride 515 ml @ 257.5 mls/ hr Q8H IV 10/13/16 20:00 10/15/16 11:28 (Vancomycin Consult Pharmacy) 0 ml @ 0 mls/hr UNSCH OTHER 10/13/16 18:45 (Cyclone 10-325 Mg) 1 tab Q4H PRN PO 10/14/16 00:15 10/15/16 03:20 (Dilaudid) 4 mg Q4H PRN PO 10/14/16 00:30 10/15/16 11:28 (Narcan Inj) 0.4 mg UNSCH PRN IV 10/14/16 00:15 Miscellaneous Information 1 DAILY T-DERMAL 10/15/16 09:00 (Habitrol 21 Mg Patch.24 Hr) 1 patch DAILY T-DERMAL 10/14/16 17:00 10/15/16 08:45 Miscellaneous Information 1 DAILY T-DERMAL 10/15/16 09:00 10/15/16 08:45 (Dilaudid Pf Inj) 0.5 mg Q4H PRN IV PUSH 10/14/16 17:00 10/15/16 12:50 Miscellaneous Information SPECIFIC LAB TO BE DRAWN:VANCOMYCIN TROUGH DATE TO... ONCE ONCE .XX 10/17/16 03:45 10/17/16 03:46 (Maxipime Inj/NS Inj) 100 ml @ 200 mls/hr Q8H IV 10/15/16 13:00 A/P Assessment and Plan 1. Thoracic epidural lesion probable infectious granulation tissue, status post T6-T7-T8 decompressive semi-laminectomy, resection of epidural mass Use of high-power intraoperative microscope for epidural lesion resection by Doctor Tarun Montoya 08/15/17 as per ID specialist to continue Vancomycin and stopped Ceftriaxone and started on Cefepime. 2. Probable Hepatitis asked for Hepatitis Profile, HIV, RPR. Hepatitis C. 3. Tobacco dependence/Polysubstance abuse strongly recommended to stop behavior. 4. Obesity strongly recommended diet and exercise. Discussed with Patient, his Mother, and his Grandfather and Grandmother all questions answered to the best of my abilities received input by nurse Miss Duke and Press Hand Supervisor, signed Face to Face for Outpatient PT and Nurse for IV antibiotics. probable for six weeks. Code Status Full Code DVT prophylaxis as per Neurosurgery. at this time on SCDs. Discharge Planning Once cleared by specialists. Donald Knutson MD Oct 15, 2016 13:40
[2016-10-15] MEDS ORDERED: LACTULOSE SYRUP 20 GM/30 ML CUP PO ONE (14:00)
[2016-10-15] MEDS: CEFEPIME INJ 2,000 MG in SODIUM CHLORIDE 0.9% INJ 100 ML IV SCH ×2 (14:10→21:09)
--- NOTE | 2016-10-15 16:30 | ECHRPT ---
Indication: SEPSIS/POSS.ENDOCARDITIS CONCLUSIONS Normal left ventricular size. Wall thickness is normal. The left ventricular systolic function is normal with an estimated ejection fraction in the range of 55-60%. No regional wall motion abnormalities are present. The pulmonary valve is not well visualized. No masess or vegetations identified BP: 150 / 96 HR: 82 Rhythm: Sinus MEASUREMENTS (Male / Female) Normal Values Technical Quality:Good 2D ECHO LV Diastolic Diameter PLAX 5.7 cm 4.2 - 5.9 / 3.9 - 5.3 cm LV Systolic Diameter PLAX 3.9 cm IVS Diastolic Thickness 1.0 cm 0.6 - 1.0 / 0.6 - 0.9 cm LVPW Diastolic Thickness 1.1 cm 0.6 - 1.0 / 0.6 - 0.9 cm LV Relative Wall Thickness 0.4 RV Internal Dim ED PLAX 2.5 cm LVOT Diameter 2.1 cm LA Systolic Diameter LX 4.0 cm 3.0 - 4.0 / 2.7 - 3.8 cm M-MODE Aortic Root Diameter MM 3.6 cm AV Cusp Separation MM 2.5 cm DOPPLER AV Peak Velocity 159.0 cm/s AV Peak Gradient 10.1 mmHg LVOT Peak Velocity 100.0 cm/s LVOT Peak Gradient 4.0 mmHg AV Area Cont Eq pk 2.2 cm MV Area PHT 4.3 cm Mitral E Point Velocity 106.0 cm/s Mitral A Point Velocity 65.6 cm/s Mitral E to A Ratio 1.6 LV E' Lateral Velocity 19.0 cm/s Mitral E to LV E' Lateral Ratio 5.6 LV E' Septal Velocity 9.8 cm/s Mitral E to LV E' Septal Ratio 10.9 TV Peak Velocity 236.0 cm/s PV Peak Velocity 133.0 cm/s PV Peak Gradient 7.1 mmHg FINDINGS LEFT VENTRICLE Normal left ventricular size. Wall thickness is normal. The left ventricular systolic function is normal with an estimated ejection fraction in the range of 55-60%. No regional wall motion abnormalities are present. RIGHT VENTRICLE Normal right ventricular size and systolic function. LEFT ATRIUM The left atrial size is normal. RIGHT ATRIUM The right atrial size is normal. ATRIAL SEPTUM Normal atrial septal thickness without atrial level shunting by limited color doppler interrogation. AORTA The aortic root and proximal ascending aorta are normal in size on limited imaging. MITRAL VALVE Structurally normal mitral valve. No mitral valve stenosis or regurgitation. AORTIC VALVE Trileaflet aortic valve. No aortic valve stenosis or regurgitation. TRICUSPID VALVE Structurally normal tricuspid valve. No tricuspid valve stenosis or regurgitation. PULMONARY VALVE The pulmonary valve is not well visualized. VESSELS The inferior vena cava is normal in size. PERICARDIUM No pericardial effusion. Moose Barrow MD (Electronically Signed) Final Date:15 October 2016 16:29
[2016-10-16] VITALS (7 sets, daily range): BP systolic 110–151; BP diastolic 59–85; PULSE 61–85; RESP 16–18; TEMP 97.1–98.2; O2SAT 92–100
[2016-10-16] MEDS: HYDROmorphone HCL PF 1 MG/ML VIAL IV PUSH PRN ×5 (01:39→19:45)
[2016-10-16] MEDS: HYDROmorphone HCL 4 MG TAB PO PRN ×5 (04:52→21:33)
[2016-10-16] MEDS: VANCOMYCIN INJ 1,500 MG in SODIUM CHLORID 0.9% 500 ML INJ 500 ML IV SCH ×3 (04:53→21:34)
[2016-10-16] MEDS: SODIUM CHLOR 0.9% 1000 ML INJ 1,000 ML IV SCH ×2 (04:55→21:42)
[2016-10-16] MEDS: CEFEPIME INJ 2,000 MG in SODIUM CHLORIDE 0.9% INJ 100 ML IV SCH ×3 (06:20→21:44)
[2016-10-16] MEDS: DOCUSATE SODIUM 50 MG/SENNA 8.6 MG TAB PO SCH ×2 (08:49→21:33)
[2016-10-16] MEDS: NICOTINE 21 MG/24 HR PATCH T-DERMAL SCH (08:49)
[2016-10-16] MEDS: REMOVE OLD PATCH T-DERMAL SCH ×2 (08:49→09:00)
[2016-10-16] MEDS: SODIUM CHLORIDE 0.9% FLUSH 10 ML FLUSH IV FLUSH SCH ×2 (11:00→21:00)
--- NOTE | 2016-10-16 12:29 | OTSOAPIP ---
ATTEMPTED TO SEE PATIENT FOR OCCUPATIONAL THERAPY EVALUATION, HOWEVER PATIENT WAS OCCUPIED WITH PHYSICAL THERAPY SESSION. WILL REATTEMPT AGAIN TODAY AT A LATER TIME ABLE, OTHERWISE WILL FOLLOW UP WITH PATIENT NEXT DAY. INTERDISCIPLINARY COMMUNICATION: REVIEWED ELECTRONIC MEDICAL RECORD Therapist: Mary Childress OTR/L Signature on file
--- NOTE | 2016-10-16 12:41 | HHI.IDPN ---
Note Infectious Disease Note Patient notes back pain 10/10 scale when he is stood upright by PT at bedside. Denies chills or other complaints. Afebrile. PAST MEDICAL HISTORY Hepatitis C. ALLERGIES NAPROXEN. ANTIBIOTICS 1. Vancomycin. 2. Ceftriaxone. OBJECTIVE: Vital Signs Date Time Temp Pulse Resp B/P Pulse Ox O2 Delivery O2 Flow Rate FiO2 10/16/16 09:49 16 10/16/16 08:00 97.9 61 16 151/85 100 10/16/16 06:52 20 10/16/16 04:00 98.2 85 17 117/59 92 10/16/16 00:00 97.3 74 17 143/82 95 10/15/16 20:00 96.6 79 17 133/82 97 10/15/16 16:00 96.6 74 16 141/89 98 10/15/16 15:57 80 10/15/16 10/15/16 10/16/16 14:59 22:59 06:59 Intake Total 840 ml 1050 ml 1930 ml Output Total 1295 ml 1150 ml 565 ml Balance -455 ml -100 ml 1365 ml Intake Oral 840 ml IV Total 1050 ml 1930 ml Output Urine Total 1275 ml 1150 ml 550 ml Drainage Total 20 ml 15 ml # Bowel Movements 0 Laboratory Tests Test 10/15/16 09:35 Erythrocyte Sedimentation Rate 82 mm/hr Laboratory Tests Test 10/14/16 10/16/16 16:50 08:50 Sodium Level 138 MEQ/L Potassium Level 3.7 MEQ/L Chloride Level 105 MEQ/L Carbon Dioxide Level 27.3 MEQ/L Anion Gap 6 MEQ/L Blood Urea Nitrogen 7 MG/DL Creatinine 0.59 MG/DL 0.57 MG/DL Estimat Glomerular Filtration 164 ML/MIN 170 ML/MIN Rate Random Glucose 89 MG/DL Calcium Level 8.7 MG/DL Total Bilirubin 0.4 MG/DL Aspartate Amino Transf 21 U/L (AST/SGOT) Alanine Aminotransferase 19 U/L (ALT/SGPT) Alkaline Phosphatase 43 U/L Total Protein 7.7 GM/DL Albumin 2.8 GM/DL Microbiology Date/Time Procedure Status Source Growth 10/13/16 14:15 Aerobic Blood Culture - Preliminary Resulted Blood Peripheral NO GROWTH IN 3 DAYS 10/13/16 14:15 Anaerobic Blood Culture - Preliminary Resulted Blood Peripheral NO GROWTH IN 3 DAYS 10/13/16 14:15 Aerobic Blood Culture - Preliminary Resulted Blood Peripheral NO GROWTH IN 3 DAYS 10/13/16 14:15 Anaerobic Blood Culture - Preliminary Resulted Blood Peripheral NO GROWTH IN 3 DAYS 10/13/16 23:14 Gram Stain - Final Complete Abscess Back 10/13/16 23:14 Wound Culture - Final Complete Pseudomonas Aeruginosa 10/13/16 23:14 Acid Fast Stain - Final Resulted Abscess Back NO ACID FAST BACILLI SEEN 10/13/16 23:14 Mycobacterial Culture Resulted Abscess Back Pending 10/13/16 23:14 Fungal Smear - Final Resulted Abscess Back NO FUNGAL ELEMENTS SEEN. 10/13/16 23:14 Fungal Culture Resulted Abscess Back Pending PHYSICAL EXAMINATION GENERAL: No acute distress. He is awake, alert and oriented. HEENT: No icterus. Oropharynx has no visible lesions. NECK: Supple without adenopathy. LUNGS: Clear breath sounds. HEART: Regular S1 and S2 without murmurs, rubs or gallops. BACK: Tenderness at the thoracic area where catheter exits the upper back. Drainage catheter has serous-sanguinous drainage in catheter. ABDOMEN: Bowel sounds are present. Soft. EXTREMITIES: No clubbing, cyanosis or edema. SKIN: No rash. NEUROLOGIC: non focal. IMPRESSION 1. Thoracic spine epidural abscess due to pseudomonas. Patient is status post laminectomy and evacuation of the abscess. 2. Intravenous drug use. RECOMMENDATIONS 1. Stop Vancomycin. 2. Continue Cefepime IV x 6 weeks. 3. PO Cipro 500 bid x 6 weeks. 4. Monitor clinical status. Arrangement for home IV antibiotic when drain is removed and cleared by Neurosurgery. Orders on Infusion form. Form copy given to Case management to process in case discharge is in next day or two. Will need a PICC for IV antibiotic on discharge. 20 mins additional time spent filling out infusion form and discussing plans with case management. Alexys Byrne MD Oct 16, 2016 12:41
--- NOTE | 2016-10-16 12:46 | HHI.FF ---
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 [] May leave port accessed during therapy. [] May leave peripheral site accessed for duration of therapy. [x] If patient has SOB or respiratory distress, check oxygen saturation. If less than 90% or clinical signs of respiratory distress, administer oxygen at 2 L/min. via nasal cannula and notify physician. [x] Anaphylaxis/Reaction orders: * Stop infusion. * Keep IV line open with saline flush. * Notify physician. * Monitor vital signs every 15 minutes until symptoms resolve. * Check Oxygen saturation; Oxygen at 2 L/min. via nasal cannula if less than 90% or clinical signs of respiratory distress. * Administer diphenhydramine (Benadryl) 25 mg IV STAT, (unless patient has received as pre-med). May repeat once, if necessary. * Solu-Cortef 250 mg IVP over 30-60 seconds, use 100 mg vials for each dissolution. * Epinephrine (1mg/1 ml) 0.3 mg subcutaneously or IVP now with any signs of respiratory distress. * Check with physician for new additional pre-med orders if patient is re- challenged or re-treated. [x] May remove PICC line when treatment complete, after confirming with Physician. [x] If the patient is admitted to the hospital, the ED, or transferred via [facility] , complete transfer form including medication reconciliation order sheet. Laboratory Tests Weekly Labs: BMP, SED Rate Additional Information Patient to follow up with ID DR Vogel in 1 week in [facility]. Also to take Cipro 500mg bid for 6 weeks. Dontfraid,Alexys F MD Oct 16, 2016 12:46
--- NOTE | 2016-10-16 13:15 | HHI.PR ---
Subjective Remarks Admission Notes: This is a pleasant 26 y/o male who is IV drug abuse, who came to ER with complaint of back pain, bilateral leg numbness and tingling sensation He was seen in Emergency room on October 07 2016 but did not complaint at that time of Neurological symptoms, He says he has been extremely weak and unable to move his lower extremities. He has not been able to walk, and had to call fire rescue to bring him into the emergency department. He is accompanied by his mother, who confirms this. He tells me that a few days ago, he lied and told our doctor that he was not IV drug user. However he does use IV drugs. He reports using IV Dilaudid 2-3 days ago. 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 He tells me he is constantly feeling tons of vibration from these large machines that he is using. He denies any bowel or bladder dysfunction. CT scan from October 07, 2016 CT scan of the C-spine that demonstrated early/mild lower cervical degenerative changes. There was mild left foraminal encroachment at C5/C6. No high-grade foraminal or spinal stenosis at any level. There was no evidence of acute disc herniation. CT scan of the T-spine demonstrated mild multifocal degenerative and suspected chronic Scheuermann's changes of thoracic spine. There was also mild kyphoscoliosis. No fracture or acute appearing malalignment. Mild bilateral foraminal stenosis from T7/T8-T10/T11, mostly on the basis of mild facet osteoarthritis. No spinal stenosis no acute disc herniation seen. Noncalcified nodule of the right upper lobe and follow-up noncontrast CT of the chest recommended 6 months. 10/14: Seen in his bedroom in the presence of his Mother Mrs. Emily Acosta, With Diagnosis of Thoracic epidural lesion probable infectious granulation tissue, status post T6-T7-T8 decompressive semi-laminectomy, resection of epidural mass Use of high-power intraoperative microscope for epidural lesion resection by Doctor Tarun Montoya 10/13/16, improving Neurological symptoms. 10/15: Stable in his bedroom, asking for pain medicine was explained he has Narcotic dependence and may go into respiratory insufficiency if continue increasing dosages of Narcotics, as per Neurosurgery the patient doing well post op DAVID draining, his Mother and both grandfather and grandmother in the room. 10/16: Seen in his bedroom, stable no complaint, no nausea, vomit or diarrhea, already recommended antibiotics at discharge by ID specialist, Stopped Vancomycin, continue Cefepime IV for six weeks, Cipro by mouth 500 mg BID for six weeks and Arrangements for IV antibiotics at home. okay to discharge once cleared by Neurosurgery. Objective Vital Signs Date Time Temp Pulse Resp B/P Pulse Ox O2 Delivery O2 Flow Rate FiO2 10/16/16 12:00 75 10/16/16 09:49 16 10/16/16 08:00 65 10/16/16 08:00 97.9 61 16 151/85 100 10/16/16 06:52 20 10/16/16 04:00 98.2 85 17 117/59 92 10/16/16 00:00 97.3 74 17 143/82 95 10/15/16 20:00 96.6 79 17 133/82 97 10/15/16 16:00 96.6 74 16 141/89 98 10/15/16 15:57 80 I/O 10/15/16 10/15/16 10/15/16 10/16/16 10/16/16 10/16/16 07:00 15:00 23:00 07:00 15:00 23:00 Intake Total 960 ml 840 ml 1050 ml 1930 ml Output Total 670 ml 1295 ml 1150 ml 565 ml Balance 290 ml -455 ml -100 ml 1365 ml Intake Oral 960 ml 840 ml IV Total 1050 ml 1930 ml Output Urine Total 650 ml 1275 ml 1150 ml 550 ml Drainage Total 20 ml 20 ml 15 ml # Bowel Movements 0 Result Diagram: 10/13/16 1410 10/16/16 0850 Imaging Last Impressions Thoracic Spine MRI 10/13/16 0000 Signed Impressions: Service Date/Time: Thursday, October 13, 2016 14:52 - CONCLUSION: 1. Extensive posterior epidural enhancing collection which extends from the T6-7 level to the T9-10 level and measures 7 mm AP x 16 mm transverse x 100 mm sagittal dimension and results in significant cord compression which is most severe at T7-8. This collection likely represents epidural abscess. Clinical correlation is recommended. 2. 3. The findings were called immediately to Deepti Mcconnell PA-C at 4: 4. 45 PM on 10/13/2016. Stanley Aviles MD Lumbar Spine MRI 10/13/16 0000 Signed Impressions: Service Date/Time: Thursday, October 13, 2016 14:52 - CONCLUSION: Normal examination. Justin Garg Jr., MD Cervical Spine MRI 10/13/16 0000 Signed Impressions: Service Date/Time: Thursday, October 13, 2016 14:52 - CONCLUSION: 1. Diffuse asymmetric disc osteophyte complex to the left at C5-6 resulting in moderate left neural foraminal narrowing. 2. Minimal diffuse symmetric disc bulge at C6-7. 3. No evidence of abscess. Stanley Aviles MD Procedures With Diagnosis of Thoracic epidural lesion probable infectious granulation tissue, status post T6-T7-T8 decompressive semi-laminectomy, resection of epidural mass Use of high-power intraoperative microscope for epidural lesion resection by Doctor Tarun Montoya 10/13/16 Other Results Laboratory Tests Test 10/13/16 10/13/16 10/13/16 10/14/16 14:10 14:15 17:00 16:40 White Blood Count 6.2 TH/MM3 Red Blood Count 4.27 MIL/MM3 Hemoglobin 12.7 GM/DL Hematocrit 37.1 % Mean Corpuscular Volume 87.0 FL Mean Corpuscular Hemoglobin 29.8 PG Mean Corpuscular Hemoglobin 34.2 % Concent Red Cell Distribution Width 13.7 % Platelet Count 322 TH/MM3 Mean Platelet Volume 8.4 FL Neutrophils (%) (Auto) 78.6 % Lymphocytes (%) (Auto) 16.1 % Monocytes (%) (Auto) 4.3 % Eosinophils (%) (Auto) 0.4 % Basophils (%) (Auto) 0.6 % Neutrophils # (Auto) 4.9 TH/MM3 Lymphocytes # (Auto) 1.0 TH/MM3 Monocytes # (Auto) 0.3 TH/MM3 Eosinophils # (Auto) 0.0 TH/MM3 Basophils # (Auto) 0.0 TH/MM3 CBC Comment DIFF FINAL Differential Comment Prothrombin Time 11.3 SEC Prothromb Time International 1.0 RATIO Ratio Activated Partial 37.2 SEC Thromboplast Time Lactic Acid Level 0.9 mmol/L Urine Color YELLOW Urine Turbidity CLEAR Urine pH 6.0 Urine Specific [place] 1.028 Urine Protein TRACE mg/dL Urine Glucose (UA) NEG mg/dL Urine Ketones 40 mg/dL Urine Occult Blood NEG Urine Nitrite NEG Urine Bilirubin NEG Urine Urobilinogen 2.0 MG/DL Urine Leukocyte Esterase NEG Urine RBC LESS THAN 1 /hpf Urine WBC 1 /hpf Urine Mucus FEW /lpf Microscopic Urinalysis Comment CATH-CULT NOT IND Urine Opiates Screen POS Urine Barbiturates Screen NEG Urine Amphetamines Screen NEG Urine Benzodiazepines Screen NEG Urine Cocaine Screen NEG Urine Cannabinoids Screen POS Hepatitis A IgM Antibody NEGATIVE Hepatitis B Surface Antigen NEGATIVE Hepatitis B Core IgM Antibody NEGATIVE Hepatitis C Antibody REACTIVE Test 10/14/16 10/14/16 10/15/16 10/16/16 16:50 21:04 09:35 08:50 Sodium Level 138 MEQ/L Potassium Level 3.7 MEQ/L Chloride Level 105 MEQ/L Carbon Dioxide Level 27.3 MEQ/L Anion Gap 6 MEQ/L Blood Urea Nitrogen 7 MG/DL Random Glucose 89 MG/DL Calcium Level 8.7 MG/DL Total Bilirubin 0.4 MG/DL Aspartate Amino Transf 21 U/L (AST/SGOT) Alanine Aminotransferase 19 U/L (ALT/SGPT) Alkaline Phosphatase 43 U/L Total Protein 7.7 GM/DL Albumin 2.8 GM/DL Vancomycin Level Trough 9.4 MCG/ML Erythrocyte Sedimentation Rate 82 mm/hr Creatinine 0.57 MG/DL Estimat Glomerular Filtration 170 ML/MIN Rate Objective Remarks GENERAL: Obesity, No acute distress. HEAD: Normocephalic and atraumatic. NECK: Supple, trachea midline. No JVD. CARDIOVASCULAR: Regular rate and rhythm without murmurs, gallops, or rubs. RESPIRATORY: Breath sounds equal bilaterally. No accessory muscle use. No rhonchi or rales. GASTROINTESTINAL: Abdomen soft, non-tender, nondistended. no rebound or guarding EXTREMITIES: No cyanosis or edema. patient has difficulty moving lower extremities NEURO: No focal deficits. PSYCH: Alert and oriented x 3. No Medications and IVs Current Medications Medications (Trade) Dose Ordered Sig/Rodrigue Route Start Time Stop Time Status Last Admin (NS 1000 ml Inj) 1,000 ml @ 100 mls/hr Q10H IV 10/13/16 18:22 10/16/16 04:55 (NS Flush) 2 ml UNSCH PRN IV FLUSH 10/13/16 18:30 (NS Flush) 2 ml BID IV FLUSH 10/13/16 21:00 10/16/16 11:00 (Tylenol) 650 mg Q4H PRN PO 10/13/16 18:30 (Zofran Inj) 4 mg Q6H PRN IVP 10/13/16 18:30 (Angela-Colace) 1 tab BID PO 10/13/16 21:00 10/16/16 08:49 (Milk Of Magnesia Liq) 30 ml Q12H PRN PO 10/13/16 18:30 (Senokot) 17.2 mg Q12H PRN PO 10/13/16 18:30 (Dulcolax Supp) 10 mg DAILY PRN RECTAL 10/13/16 18:30 Lactulose 30 ml 30 ml DAILY PRN PO 10/13/16 18:30 Vancomycin HCl 1500 mg/Sodium Chloride 515 ml @ 257.5 mls/ hr Q8H IV 10/13/16 20:00 10/16/16 04:53 (Vancomycin Consult Pharmacy) 0 ml @ 0 mls/hr UNSCH OTHER 10/13/16 18:45 ([place] 10-325 Mg) 1 tab Q4H PRN PO 10/14/16 00:15 10/15/16 03:20 (Dilaudid) 4 mg Q4H PRN PO 10/14/16 00:30 10/16/16 08:49 (Narcan Inj) 0.4 mg UNSCH PRN IV 10/14/16 00:15 Miscellaneous Information 1 DAILY T-DERMAL 10/15/16 09:00 (Habitrol 21 Mg Patch.24 Hr) 1 patch DAILY T-DERMAL 10/14/16 17:00 10/16/16 08:49 Miscellaneous Information 1 DAILY T-DERMAL 10/15/16 09:00 10/16/16 08:49 (Dilaudid Pf Inj) 0.5 mg Q4H PRN IV PUSH 10/14/16 17:00 10/16/16 10:59 Miscellaneous Information SPECIFIC LAB TO BE DRAWN:VANCOMYCIN TROUGH DATE TO... ONCE ONCE .XX 10/17/16 03:45 10/17/16 03:46 (Maxipime Inj/NS Inj) 100 ml @ 200 mls/hr Q8H IV 10/15/16 13:00 10/16/16 06:20 A/P Assessment and Plan 1. Thoracic epidural lesion probable infectious granulation tissue, status post T6-T7-T8 decompressive semi-laminectomy, resection of epidural mass Use of high-power intraoperative microscope for epidural lesion resection by Doctor Tarun Montoya 10/13/16 as per ID specialist to continue Vancomycin and stopped Ceftriaxone and started on Cefepime. today recommended to Stop Vancomycin he will continue Cefepime IV for six weeks, and Cipro by mouth 500 mg BID for six months and okay to discharge once cleared by neurosurgery. 2. Hepatitis C. 3. Tobacco dependence/Polysubstance abuse strongly recommended to stop behavior. 4. Obesity strongly recommended diet and exercise. Discussed with Patient and nurse, all questions answered to the best of my abilities Code Status Full Code DVT prophylaxis as per Neurosurgery. at this time on SCDs. Discharge Planning Once cleared by Neurosurgery. Donald Knutson MD Oct 16, 2016 13:15
--- NOTE | 2016-10-16 16:46 | HHI.NSPN ---
(Christopher Rivers) History Chief Complaint: Some back pain (Christopher Rivers) Interval History 10/13: 26-year-old male presents to the emergency room with complaint of approximately 2 weeks of progressive severe thoracic pain. He was seen in the emergency room approximately a week ago and a CT scan of the spine obtained which was within normal limits. He will return to the emergency room today with further progression of pain symptoms. He complains of a burning or stinging sensation across his abdomen for the past day. He also complains of intermittent pain radiating to the lower extremities for the past few days. He has had no definite problems with bowel or bladder dysfunction. No definite weakness in the lower extremities although he complains of anterior 3 days of diffuse numbness in the legs. No spasms in the lower extremities. No complaint of upper extremity pain and weakness numbness or paresthesia. He states that he has been able to walk today but only with rather severe pain. The patient was urgently taken to the operating room for aT6-T7-T8 decompressive semi-laminectomy with resection of epidural mass using a high- power intraoperative microscope. Post-operatively the patient went to a regular med/surg floor. 10/14: The patient is awake and alert watching TV with his mother. He states he is "hurting" and endorses pain to the back. He states the numbness to the lower extremities is better. 10/16: When seen this afternoon the patient is awake and alert watching TV. He states he is doing better and was up working with Physical Therapy earlier. He has some pain to the back but denies any to the extremities. He denies any numbness to the extremities or any saddle anaesthesia. (Christopher Rivers) System Review Comments Constitutional: Patient denies any fever or chills. Respiratory: Patient denies any shortness of breath or productive cough. Cardiovascular: Patient denies any chest pain, palpitations or irregular heartbeat. Gastrointestinal: Patient denies any abdominal pain, nausea, vomiting or incontinence of stool. Genitourinary: Patient denies any incontinence of urine. Musculoskeletal: Patient has some back pain to the surgical site. He denies any pain or weakness to the extremities. Neurologic: Patient denies any headache, dizziness, numbness or tingling. He denies any saddle anaesthesia. (Christopher Rivers) Exam Results Vital Signs Date Time Temp Pulse Resp B/P Pulse Ox O2 Delivery O2 Flow Rate FiO2 10/16/16 12:00 97.1 73 18 110/59 100 10/15/16 11:41 21 10/14/16 01:30 Room Air 10/14/16 00:15 2 Intake and Output 10/15/16 10/15/16 10/16/16 08:00 16:00 00:00 Intake Total 960 ml 1890 ml Output Total 770 ml 1745 ml 600 ml Balance 190 ml 145 ml -600 ml (Christopher Rivers) Physical Examination GENERAL: Patient is awake & alert watching TV. He appears comfortable w/o any distress. His affect is normal. SKIN: Warm, dry & intact except for upper thoracic surgical incision, no rashes , ulcerations or other lesions. HEENT: Normocephalic, atraumatic. NECK: Full AROM w/o pain, no JVD, trachea midline. CARDIOVASCULAR: S1S2 w/RRR w/o M/G/R, radial & pedal pulses 2+ bilaterally, cap refill < 2 sec, no pedal edema. RESPIRATORY: CTAB w/o W/R/R, equal excursion, nonlaboured, on RA. GASTROINTESTINAL: Abdomen soft, nontender, positive bowel sounds. MUSCULOSKELETAL: PEREIRA w/o difficulty, no evident deformity or clubbing. TTP at thoracic surgical incision, dressing intact w/o any shadowing noted, DAVID drain to bulb suction w/serosanguinous drainage. NEUROLOGICAL: AAOx3. Speech clear & appropriate. Follows simple commands w/o difficulty. Sensation intact to light touch to all extremities. Motor strength 5/5 to all major flexion & extension muscle groups. (Christopher Rivers) Medical Decision Making Impression and Plan Impression: (1) Epidural abscess Thoracic epidural lesion-probable infectious granulation tissue. The patient is doing well post-operatively, no sensory or motor deficits. DAVID drain output 10 mL. Blood cultures x2 w/o growth 3 days. Wound culture with Pseudomonas aeruginosa. POD #3 () s/p : T6-T7-T8 decompressive semi-laminectomy, resection of epidural mass w/high- power intraoperative microscope. Plan: Primary management per Hospitalist. Antibiotics per Infectious Disease. Mobilise patient w/assistance as needed. PT eval & tx. Diet as tolerated. Pain meds. Will d/c DAVID drain. (Christopher Rivers) Attending Statement The exam, history, and the medical decision-making described in the above note were completed with the assistance of the mid-level provider. I reviewed and agree with the findings presented. I attest that I had a [id number] encounter with the patient on the same day, and personally performed and documented my assessment and findings in the medical record. Stable neurologic exam Improving with therapy Intraoperative cultures with Pseudomonas Infectious disease following (Tarun Montoya MD) Christopher Rivers Oct 16, 2016 16:46 Tarun Montoay MD Dec 07, 2016 07:30
[2016-10-17] VITALS (8 sets, daily range): BP systolic 124–136; BP diastolic 63–89; PULSE 63–94; RESP 12–18; TEMP 96.8–99.1; O2SAT 91–99
[2016-10-17] MEDS ORDERED: TEMAZEPAM 7.5 MG CAP PO ONE
[2016-10-17] MEDS: HYDROmorphone HCL PF 1 MG/ML VIAL IV PUSH PRN ×6 (00:05→23:35)
[2016-10-17] MEDS: SODIUM CHLOR 0.9% 1000 ML INJ 1,000 ML IV SCH ×2 (02:22→15:35)
[2016-10-17] MEDS ORDERED: PHARMACY ORDERED LAB ONE (03:45)
[2016-10-17] MEDS: VANCOMYCIN INJ 1,500 MG in SODIUM CHLORID 0.9% 500 ML INJ 500 ML IV SCH (05:03)
--- NOTE | 2016-10-17 08:27 | HHI.PR ---
Subjective Remarks Admission Notes: This is a pleasant 26 y/o male who is IV drug abuse, who came to ER with complaint of back pain, bilateral leg numbness and tingling sensation He was seen in Emergency room on October 07 2016 but did not complaint at that time of Neurological symptoms, He says he has been extremely weak and unable to move his lower extremities. He has not been able to walk, and had to call fire rescue to bring him into the emergency department. He is accompanied by his mother, who confirms this. He tells me that a few days ago, he lied and told our doctor that he was not IV drug user. However he does use IV drugs. He reports using IV Dilaudid 2-3 days ago. 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 He tells me he is constantly feeling tons of vibration from these large machines that he is using. He denies any bowel or bladder dysfunction. CT scan from October 07, 2016 CT scan of the C-spine that demonstrated early/mild lower cervical degenerative changes. There was mild left foraminal encroachment at C5/C6. No high-grade foraminal or spinal stenosis at any level. There was no evidence of acute disc herniation. CT scan of the T-spine demonstrated mild multifocal degenerative and suspected chronic Scheuermann's changes of thoracic spine. There was also mild kyphoscoliosis. No fracture or acute appearing malalignment. Mild bilateral foraminal stenosis from T7/T8-T10/T11, mostly on the basis of mild facet osteoarthritis. No spinal stenosis no acute disc herniation seen. Noncalcified nodule of the right upper lobe and follow-up noncontrast CT of the chest recommended 6 months. 10/14: Seen in his bedroom in the presence of his Mother Mrs. Emily Acosta, With Diagnosis of Thoracic epidural lesion probable infectious granulation tissue, status post T6-T7-T8 decompressive semi-laminectomy, resection of epidural mass Use of high-power intraoperative microscope for epidural lesion resection by Doctor Tarun Montoya 10/13/16, improving Neurological symptoms. 10/15: Stable in his bedroom, asking for pain medicine was explained he has Narcotic dependence and may go into respiratory insufficiency if continue increasing dosages of Narcotics, as per Neurosurgery the patient doing well post op DAVID draining, his Mother and both grandfather and grandmother in the room. 10/16: Seen in his bedroom, stable no complaint, no nausea, vomit or diarrhea, already recommended antibiotics at discharge by ID specialist, Stopped Vancomycin, continue Cefepime IV for six weeks, Cipro by mouth 500 mg BID for six weeks and Arrangements for IV antibiotics at home. okay to discharge once cleared by Neurosurgery. 10/17: Patient discussed with nurse Miss Jackson his DAVID drain removed yesterday by Neurosurgery, no pain at this time, ano Nausea, vomit or diarrhea, awaiting for Physical therapy evaluation today. Objective Vital Signs Date Time Temp Pulse Resp B/P Pulse Ox O2 Delivery O2 Flow Rate FiO2 10/17/16 05:26 16 10/17/16 04:00 96.8 73 18 128/70 98 10/17/16 00:00 97.5 76 17 136/63 99 10/16/16 22:50 16 10/16/16 20:00 97.9 73 17 126/61 98 10/16/16 16:00 97.8 70 18 128/71 100 10/16/16 12:00 97.1 73 18 110/59 100 10/16/16 12:00 75 I/O 10/16/16 10/16/16 10/16/16 10/17/16 10/17/16 10/17/16 07:00 15:00 23:00 07:00 15:00 23:00 Intake Total 1930 ml 1320 ml Output Total 565 ml 10 ml 800 ml Balance 1365 ml -10 ml 520 ml Intake Oral 1320 ml IV Total 1930 ml Output Urine Total 550 ml 800 ml Drainage Total 15 ml 10 ml Result Diagram: 10/13/16 1410 10/16/16 0850 Imaging Last Impressions Thoracic Spine MRI 10/13/16 0000 Signed Impressions: Service Date/Time: Thursday, October 13, 2016 14:52 - CONCLUSION: 1. Extensive posterior epidural enhancing collection which extends from the T6-7 level to the T9-10 level and measures 7 mm AP x 16 mm transverse x 100 mm sagittal dimension and results in significant cord compression which is most severe at T7-8. This collection likely represents epidural abscess. Clinical correlation is recommended. 2. 3. The findings were called immediately to Deepti Mcconnell PA-C at 4: 4. 45 PM on 10/13/2016. Stanley Aviles MD Lumbar Spine MRI 10/13/16 0000 Signed Impressions: Service Date/Time: Thursday, October 13, 2016 14:52 - CONCLUSION: Normal examination. Justin Garg Jr., MD Cervical Spine MRI 10/13/16 0000 Signed Impressions: Service Date/Time: Thursday, October 13, 2016 14:52 - CONCLUSION: 1. Diffuse asymmetric disc osteophyte complex to the left at C5-6 resulting in moderate left neural foraminal narrowing. 2. Minimal diffuse symmetric disc bulge at C6-7. 3. No evidence of abscess. Stanley Aviles MD Procedures With Diagnosis of Thoracic epidural lesion probable infectious granulation tissue, status post T6-T7-T8 decompressive semi-laminectomy, resection of epidural mass Use of high-power intraoperative microscope for epidural lesion resection by Doctor Tarun Montoya 10/13/16 Other Results Laboratory Tests Test 10/13/16 10/13/16 10/13/16 10/14/16 14:10 14:15 17:00 16:40 White Blood Count 6.2 TH/MM3 Red Blood Count 4.27 MIL/MM3 Hemoglobin 12.7 GM/DL Hematocrit 37.1 % Mean Corpuscular Volume 87.0 FL Mean Corpuscular Hemoglobin 29.8 PG Mean Corpuscular Hemoglobin 34.2 % Concent Red Cell Distribution Width 13.7 % Platelet Count 322 TH/MM3 Mean Platelet Volume 8.4 FL Neutrophils (%) (Auto) 78.6 % Lymphocytes (%) (Auto) 16.1 % Monocytes (%) (Auto) 4.3 % Eosinophils (%) (Auto) 0.4 % Basophils (%) (Auto) 0.6 % Neutrophils # (Auto) 4.9 TH/MM3 Lymphocytes # (Auto) 1.0 TH/MM3 Monocytes # (Auto) 0.3 TH/MM3 Eosinophils # (Auto) 0.0 TH/MM3 Basophils # (Auto) 0.0 TH/MM3 CBC Comment DIFF FINAL Differential Comment Prothrombin Time 11.3 SEC Prothromb Time International 1.0 RATIO Ratio Activated Partial 37.2 SEC Thromboplast Time Lactic Acid Level 0.9 mmol/L Urine Color YELLOW Urine Turbidity CLEAR Urine pH 6.0 Urine Specific [place] 1.028 Urine Protein TRACE mg/dL Urine Glucose (UA) NEG mg/dL Urine Ketones 40 mg/dL Urine Occult Blood NEG Urine Nitrite NEG Urine Bilirubin NEG Urine Urobilinogen 2.0 MG/DL Urine Leukocyte Esterase NEG Urine RBC LESS THAN 1 /hpf Urine WBC 1 /hpf Urine Mucus FEW /lpf Microscopic Urinalysis Comment CATH-CULT NOT IND Urine Opiates Screen POS Urine Barbiturates Screen NEG Urine Amphetamines Screen NEG Urine Benzodiazepines Screen NEG Urine Cocaine Screen NEG Urine Cannabinoids Screen POS Hepatitis A IgM Antibody NEGATIVE Hepatitis B Surface Antigen NEGATIVE Hepatitis B Core IgM Antibody NEGATIVE Hepatitis C Antibody REACTIVE Test 10/14/16 10/15/16 10/16/16 10/17/16 16:50 09:35 08:50 04:50 Sodium Level 138 MEQ/L Potassium Level 3.7 MEQ/L Chloride Level 105 MEQ/L Carbon Dioxide Level 27.3 MEQ/L Anion Gap 6 MEQ/L Blood Urea Nitrogen 7 MG/DL Random Glucose 89 MG/DL Calcium Level 8.7 MG/DL Total Bilirubin 0.4 MG/DL Aspartate Amino Transf 21 U/L (AST/SGOT) Alanine Aminotransferase 19 U/L (ALT/SGPT) Alkaline Phosphatase 43 U/L Total Protein 7.7 GM/DL Albumin 2.8 GM/DL Erythrocyte Sedimentation Rate 82 mm/hr Creatinine 0.57 MG/DL Estimat Glomerular Filtration 170 ML/MIN Rate Vancomycin Level Trough 19.5 MCG/ML Objective Remarks GENERAL: Obesity, No acute distress. HEAD: Normocephalic and atraumatic. NECK: Supple, trachea midline. No JVD. CARDIOVASCULAR: Regular rate and rhythm without murmurs, gallops, or rubs. RESPIRATORY: Breath sounds equal bilaterally. No accessory muscle use. No rhonchi or rales. GASTROINTESTINAL: Abdomen soft, non-tender, nondistended. no rebound or guarding EXTREMITIES: No cyanosis or edema. patient has difficulty moving lower extremities NEURO: No focal deficits. PSYCH: Alert and oriented x 3. No Medications and IVs Current Medications Medications (Trade) Dose Ordered Sig/Rodrigue Route Start Time Stop Time Status Last Admin (NS 1000 ml Inj) 1,000 ml @ 100 mls/hr Q10H IV 10/13/16 18:22 10/16/16 21:42 (NS Flush) 2 ml UNSCH PRN IV FLUSH 10/13/16 18:30 (NS Flush) 2 ml BID IV FLUSH 10/13/16 21:00 10/16/16 21:00 (Tylenol) 650 mg Q4H PRN PO 10/13/16 18:30 10/16/16 17:32 (Zofran Inj) 4 mg Q6H PRN IVP 10/13/16 18:30 (Angela-Colace) 1 tab BID PO 10/13/16 21:00 10/16/16 21:33 (Milk Of Magnesia Liq) 30 ml Q12H PRN PO 10/13/16 18:30 (Senokot) 17.2 mg Q12H PRN PO 10/13/16 18:30 (Dulcolax Supp) 10 mg DAILY PRN RECTAL 10/13/16 18:30 Lactulose 30 ml 30 ml DAILY PRN PO 10/13/16 18:30 Vancomycin HCl 1500 mg/Sodium Chloride 515 ml @ 257.5 mls/ hr Q8H IV 10/13/16 20:00 10/17/16 05:03 (Vancomycin Consult Pharmacy) 0 ml @ 0 mls/hr UNSCH OTHER 10/13/16 18:45 ([place] 10-325 Mg) 1 tab Q4H PRN PO 10/14/16 00:15 10/15/16 03:20 (Dilaudid) 4 mg Q4H PRN PO 10/14/16 00:30 10/16/16 21:33 (Narcan Inj) 0.4 mg UNSCH PRN IV 10/14/16 00:15 Miscellaneous Information 1 DAILY T-DERMAL 10/15/16 09:00 10/16/16 09:00 (Habitrol 21 Mg Patch.24 Hr) 1 patch DAILY T-DERMAL 10/14/16 17:00 10/16/16 08:49 Miscellaneous Information 1 DAILY T-DERMAL 10/15/16 09:00 10/16/16 08:49 Hydromorphone HCl 0.5 mg 0.5 mg Q4H PRN IV PUSH 10/14/16 17:00 10/17/16 04:56 (Maxipime Inj/NS Inj) 100 ml @ 200 mls/hr Q8H IV 10/15/16 13:00 10/16/16 21:44 A/P Assessment and Plan 1. Thoracic epidural lesion probable infectious granulation tissue, status post T6-T7-T8 decompressive semi-laminectomy, resection of epidural mass Use of high-power intraoperative microscope for epidural lesion resection by Doctor Tarun Montoya 10/13/16 as per ID specialist to continue Vancomycin and stopped Ceftriaxone and started on Cefepime. today recommended to Stop Vancomycin he will continue Cefepime IV for six weeks, and Cipro by mouth 500 mg BID for six months and okay to discharge once cleared by neurosurgery. DAVID drain removed yesterday night. 2. Hepatitis C. to follow as outpatient. 3. Tobacco dependence/Polysubstance abuse strongly recommended to stop behavior. 4. Obesity strongly recommended diet and exercise. Discussed with Patient and nurse, all questions answered to the best of my abilities Discussed with nurse Miss Jackson appreciated input. Code Status Full Code DVT prophylaxis as per Neurosurgery. at this time on SCDs. Discharge Planning Once cleared by Neurosurgery. Donald Knutson MD Oct 17, 2016 08:27
[2016-10-17] MEDS: REMOVE OLD PATCH T-DERMAL SCH ×2 (09:00)
[2016-10-17] MEDS: NICOTINE 21 MG/24 HR PATCH T-DERMAL SCH (09:20)
[2016-10-17] MEDS: HYDROmorphone HCL 4 MG TAB PO PRN ×4 (09:20→21:59)
[2016-10-17] MEDS: DOCUSATE SODIUM 50 MG/SENNA 8.6 MG TAB PO SCH ×2 (09:20→19:25)
[2016-10-17] MEDS: CEFEPIME INJ 2,000 MG in SODIUM CHLORIDE 0.9% INJ 100 ML IV SCH ×2 (11:23→19:26)
[2016-10-17] MEDS: VANCOMYCIN INJ 1,750 MG in SODIUM CHLORID 0.9% 500 ML INJ 500 ML IV SCH (17:55)
[2016-10-17] MEDS: SODIUM CHLORIDE 0.9% FLUSH 10 ML FLUSH IV FLUSH SCH (20:23)
[2016-10-17] MEDS: TEMAZEPAM 7.5 MG CAP PO PRN (20:24)
[2016-10-18] VITALS (7 sets, daily range): BP systolic 95–143; BP diastolic 52–82; PULSE 59–105; RESP 17–20; TEMP 96.5–99.6; O2SAT 91–100
[2016-10-18] MEDS: HYDROmorphone HCL 4 MG TAB PO PRN ×5 (03:49→21:31)
[2016-10-18] MEDS: SODIUM CHLOR 0.9% 1000 ML INJ 1,000 ML IV SCH ×3 (03:50→17:05)
[2016-10-18] MEDS: CEFEPIME INJ 2,000 MG in SODIUM CHLORIDE 0.9% INJ 100 ML IV SCH ×3 (04:17→20:20)
[2016-10-18] MEDS: HYDROmorphone HCL PF 1 MG/ML VIAL IV PUSH PRN ×5 (05:03→23:25)
[2016-10-18] MEDS: VANCOMYCIN INJ 1,750 MG in SODIUM CHLORID 0.9% 500 ML INJ 500 ML IV SCH ×2 (05:05→16:59)
--- NOTE | 2016-10-18 06:09 | HHI.PR ---
Subjective Remarks Admission Notes: This is a pleasant 26 y/o male who is IV drug abuse, who came to ER with complaint of back pain, bilateral leg numbness and tingling sensation He was seen in Emergency room on October 07 2016 but did not complaint at that time of Neurological symptoms, He says he has been extremely weak and unable to move his lower extremities. He has not been able to walk, and had to call fire rescue to bring him into the emergency department. He is accompanied by his mother, who confirms this. He tells me that a few days ago, he lied and told our doctor that he was not IV drug user. However he does use IV drugs. He reports using IV Dilaudid 2-3 days ago. 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 He tells me he is constantly feeling tons of vibration from these large machines that he is using. He denies any bowel or bladder dysfunction. CT scan from October 07, 2016 CT scan of the C-spine that demonstrated early/mild lower cervical degenerative changes. There was mild left foraminal encroachment at C5/C6. No high-grade foraminal or spinal stenosis at any level. There was no evidence of acute disc herniation. CT scan of the T-spine demonstrated mild multifocal degenerative and suspected chronic Scheuermann's changes of thoracic spine. There was also mild kyphoscoliosis. No fracture or acute appearing malalignment. Mild bilateral foraminal stenosis from T7/T8-T10/T11, mostly on the basis of mild facet osteoarthritis. No spinal stenosis no acute disc herniation seen. Noncalcified nodule of the right upper lobe and follow-up noncontrast CT of the chest recommended 6 months. 10/14: Seen in his bedroom in the presence of his Mother Mrs. Emily Acosta, With Diagnosis of Thoracic epidural lesion probable infectious granulation tissue, status post T6-T7-T8 decompressive semi-laminectomy, resection of epidural mass Use of high-power intraoperative microscope for epidural lesion resection by Doctor Tarun Montoya 10/13/16, improving Neurological symptoms. 10/15: Stable in his bedroom, asking for pain medicine was explained he has Narcotic dependence and may go into respiratory insufficiency if continue increasing dosages of Narcotics, as per Neurosurgery the patient doing well post op DAVID draining, his Mother and both grandfather and grandmother in the room. 10/16: Stopped Vancomycin and continue Cefepime IV for six weeks, Cipro by mouth 500 mg BID for six weeks and Arrangements for IV antibiotics at home. 10/17: DAVID drain removed yesterday by Neurosurgery. 10/18: worked with Physical Therapy, improving pain, working with Physical therapy. No nausea, vomit or diarrhea. Objective Vital Signs Date Time Temp Pulse Resp B/P Pulse Ox O2 Delivery O2 Flow Rate FiO2 10/18/16 05:46 98.9 105 20 143/70 91 10/18/16 05:00 98.6 80 17 95/52 98 10/18/16 04:59 20 10/18/16 00:00 98.1 82 17 123/82 100 10/17/16 21:00 83 10/17/16 21:00 18 10/17/16 20:00 99.1 85 17 129/82 98 10/17/16 16:00 97.3 94 14 125/83 91 10/17/16 12:00 98.7 80 14 131/81 99 10/17/16 08:00 97.2 85 12 124/89 97 10/17/16 08:00 63 I/O 10/17/16 10/17/16 10/17/16 10/18/16 10/18/16 10/18/16 07:00 15:00 23:00 07:00 15:00 23:00 Intake Total 472 ml 1200 ml Output Total 2500 ml 600 ml Balance -2028 ml 1200 ml -600 ml Intake Oral 472 ml 1200 ml Output Urine Total 2500 ml 600 ml # Bowel Movements 0 Result Diagram: 10/16/16 0850 Imaging Last Impressions Thoracic Spine MRI 10/13/16 0000 Signed Impressions: Service Date/Time: Thursday, October 13, 2016 14:52 - CONCLUSION: 1. Extensive posterior epidural enhancing collection which extends from the T6-7 level to the T9-10 level and measures 7 mm AP x 16 mm transverse x 100 mm sagittal dimension and results in significant cord compression which is most severe at T7-8. This collection likely represents epidural abscess. Clinical correlation is recommended. 2. 3. The findings were called immediately to Deepti Mcconnell PA-C at 4: 4. 45 PM on 10/13/2016. Stanley Aviles MD Lumbar Spine MRI 10/13/16 0000 Signed Impressions: Service Date/Time: Thursday, October 13, 2016 14:52 - CONCLUSION: Normal examination. Justin Garg Jr., MD Cervical Spine MRI 10/13/16 0000 Signed Impressions: Service Date/Time: Thursday, October 13, 2016 14:52 - CONCLUSION: 1. Diffuse asymmetric disc osteophyte complex to the left at C5-6 resulting in moderate left neural foraminal narrowing. 2. Minimal diffuse symmetric disc bulge at C6-7. 3. No evidence of abscess. Stanley Aviles MD Procedures With Diagnosis of Thoracic epidural lesion probable infectious granulation tissue, status post T6-T7-T8 decompressive semi-laminectomy, resection of epidural mass Use of high-power intraoperative microscope for epidural lesion resection by Doctor Tarun Montoya 10/13/16 Other Results Laboratory Tests Test 10/14/16 10/14/16 10/15/16 10/16/16 16:40 16:50 09:35 08:50 Hepatitis A IgM Antibody NEGATIVE Hepatitis B Surface Antigen NEGATIVE Hepatitis B Core IgM Antibody NEGATIVE Hepatitis C Antibody REACTIVE Sodium Level 138 MEQ/L Potassium Level 3.7 MEQ/L Chloride Level 105 MEQ/L Carbon Dioxide Level 27.3 MEQ/L Anion Gap 6 MEQ/L Blood Urea Nitrogen 7 MG/DL Random Glucose 89 MG/DL Calcium Level 8.7 MG/DL Total Bilirubin 0.4 MG/DL Aspartate Amino Transf 21 U/L (AST/SGOT) Alanine Aminotransferase 19 U/L (ALT/SGPT) Alkaline Phosphatase 43 U/L Total Protein 7.7 GM/DL Albumin 2.8 GM/DL Erythrocyte Sedimentation Rate 82 mm/hr Creatinine 0.57 MG/DL Estimat Glomerular Filtration 170 ML/MIN Rate Test 10/17/16 04:50 Vancomycin Level Trough 19.5 MCG/ML Objective Remarks GENERAL: Obesity, No acute distress. HEAD: Normocephalic and atraumatic. NECK: Supple, trachea midline. No JVD. CARDIOVASCULAR: Regular rate and rhythm without murmurs, gallops, or rubs. RESPIRATORY: Breath sounds equal bilaterally. No accessory muscle use. No rhonchi or rales. GASTROINTESTINAL: Abdomen soft, non-tender, nondistended. no rebound or guarding EXTREMITIES: No cyanosis or edema. patient has difficulty moving lower extremities NEURO: No focal deficits. PSYCH: Alert and oriented x 3. No Medications and IVs Current Medications Medications (Trade) Dose Ordered Sig/Rodrigue Route Start Time Stop Time Status Last Admin (NS 1000 ml Inj) 1,000 ml @ 100 mls/hr Q10H IV 10/13/16 18:22 10/18/16 03:50 (NS Flush) 2 ml UNSCH PRN IV FLUSH 10/13/16 18:30 (NS Flush) 2 ml BID IV FLUSH 10/13/16 21:00 10/16/16 21:00 (Tylenol) 650 mg Q4H PRN PO 10/13/16 18:30 10/16/16 17:32 (Zofran Inj) 4 mg Q6H PRN IVP 10/13/16 18:30 (Angela-Colace) 1 tab BID PO 10/13/16 21:00 10/17/16 19:25 (Milk Of Magnesia Liq) 30 ml Q12H PRN PO 10/13/16 18:30 (Senokot) 17.2 mg Q12H PRN PO 10/13/16 18:30 (Dulcolax Supp) 10 mg DAILY PRN RECTAL 10/13/16 18:30 Lactulose 30 ml 30 ml DAILY PRN PO 10/13/16 18:30 (Vancomycin Consult Pharmacy) 0 ml @ 0 mls/hr UNSCH OTHER 10/13/16 18:45 ([place] 10-325 Mg) 1 tab Q4H PRN PO 10/14/16 00:15 10/15/16 03:20 (Dilaudid) 4 mg Q4H PRN PO 10/14/16 00:30 10/18/16 03:49 (Narcan Inj) 0.4 mg UNSCH PRN IV 10/14/16 00:15 (Habitrol 21 Mg Patch.24 Hr) 1 patch DAILY T-DERMAL 10/14/16 17:00 10/17/16 09:20 Miscellaneous Information 1 DAILY T-DERMAL 10/15/16 09:00 10/17/16 09:00 Hydromorphone HCl 0.5 mg 0.5 mg Q4H PRN IV PUSH 10/14/16 17:00 10/18/16 05:03 Cefepime HCl 2000 mg/Sodium Chloride 100 ml @ 200 mls/hr Q8H IV 10/15/16 13:00 10/18/16 04:17 (Vancomycin Inj/ NS 500 ml Inj) 517.5 ml @ 258.75 mls/ hr Q12H IV 10/17/16 17:00 10/18/16 05:05 Miscellaneous Information SPECIFIC LAB TO BE ... ONCE ONCE .XX 10/19/16 04:45 10/19/16 04:46 (Restoril) 7.5 mg HS PRN PO 10/17/16 19:45 10/17/16 20:24 A/P Assessment and Plan 1. Thoracic epidural lesion probable infectious granulation tissue, status post T6-T7-T8 decompressive semi-laminectomy, resection of epidural mass Use of high-power intraoperative microscope for epidural lesion resection by Doctor Tarun Montoya 10/13/16 as per ID specialist to continue Vancomycin and stopped Ceftriaxone and started on Cefepime. today recommended to Stop Vancomycin he will continue Cefepime IV for six weeks, and Cipro by mouth 500 mg BID for six months and okay to discharge once cleared by neurosurgery. DAVID drain removed 2. Hepatitis C. to follow as outpatient. 3. Tobacco dependence/Polysubstance abuse strongly recommended to stop behavior. 4. Obesity strongly recommended diet and exercise. Discussed with Patient, all questions answered to the best of my abilities Code Status Full Code DVT prophylaxis as per Neurosurgery. at this time on SCDs. Discharge Planning Once cleared by Neurosurgery. Donald Knutson MD Oct 18, 2016 06:09
[2016-10-18] MEDS: SODIUM CHLORIDE 0.9% FLUSH 10 ML FLUSH IV FLUSH SCH ×2 (09:00→20:20)
[2016-10-18] MEDS: DOCUSATE SODIUM 50 MG/SENNA 8.6 MG TAB PO SCH ×2 (09:00→20:20)
[2016-10-18] MEDS: NICOTINE 21 MG/24 HR PATCH T-DERMAL SCH (09:00)
[2016-10-18] MEDS: REMOVE OLD PATCH T-DERMAL SCH (09:00)
[2016-10-18] MEDS: TEMAZEPAM 7.5 MG CAP PO PRN (23:25)
[2016-10-19] VITALS (8 sets, daily range): BP systolic 107–124; BP diastolic 57–73; PULSE 64–83; RESP 16–18; TEMP 96.5–99.4; O2SAT 97–99
[2016-10-19] MEDS: HYDROmorphone HCL 4 MG TAB PO PRN ×5 (01:44→20:03)
[2016-10-19] MEDS: CEFEPIME INJ 2,000 MG in SODIUM CHLORIDE 0.9% INJ 100 ML IV SCH ×3 (04:35→22:02)
[2016-10-19] MEDS: HYDROmorphone HCL PF 1 MG/ML VIAL IV PUSH PRN ×2 (04:36→08:45)
[2016-10-19] MEDS ORDERED: PHARMACY ORDERED LAB ONE (04:45)
[2016-10-19] MEDS: VANCOMYCIN INJ 1,750 MG in SODIUM CHLORID 0.9% 500 ML INJ 500 ML IV SCH (05:54)
[2016-10-19] MEDS: NICOTINE 21 MG/24 HR PATCH T-DERMAL SCH (09:00)
[2016-10-19] MEDS: SODIUM CHLORIDE 0.9% FLUSH 10 ML FLUSH IV FLUSH SCH ×2 (09:00→22:02)
[2016-10-19] MEDS: DOCUSATE SODIUM 50 MG/SENNA 8.6 MG TAB PO SCH ×2 (09:00→20:03)
[2016-10-19] MEDS: REMOVE OLD PATCH T-DERMAL SCH (09:00)
--- NOTE | 2016-10-19 12:35 | HHI.IDPN ---
Note Infectious Disease Note Patient notes weakness in his legs. Ambulated 100ft with walker. Drainage catheter removed yesterday. Still with pain in back controlled with pain meds. Afebrile. PAST MEDICAL HISTORY Hepatitis C. ALLERGIES NAPROXEN. ANTIBIOTICS Cefepime Cipro. OBJECTIVE: Vital Signs Date Time Temp Pulse Resp B/P (MAP) Pulse Ox O2 Delivery O2 Flow Rate FiO2 10/19/16 12:00 97.0 72 16 117/62 (80) 99 10/19/16 08:00 97.3 64 16 113/65 (81) 97 10/19/16 05:59 96.5 74 16 107/57 (74) 98 10/19/16 04:00 66 10/19/16 00:00 99.4 70 18 112/59 (76) 99 10/19/16 00:00 77 10/18/16 20:00 99.6 74 18 115/69 (84) 100 10/18/16 20:00 76 10/18/16 18:26 16 10/18/16 16:00 98.0 88 18 128/71 (90) 100 10/18/16 16:00 82 10/18/16 15:29 20 Laboratory Tests Test 10/18/16 04:57 Creatinine 0.61 MG/DL Estimat Glomerular Filtration Rate 157 ML/MIN PHYSICAL EXAMINATION GENERAL: No acute distress. HEENT: No icterus. Oropharynx has no visible lesions. NECK: Supple without adenopathy. LUNGS: Clear breath sounds. HEART: Regular S1 and S2 without murmurs, rubs or gallops. BACK: Tenderness at the thoracic area. Mild swelling. ABDOMEN: Bowel sounds are present. Soft. EXTREMITIES: No clubbing, cyanosis or edema. SKIN: No rash. NEUROLOGIC: non focal. IMPRESSION 1. Thoracic spine epidural abscess due to pseudomonas. Patient is status post laminectomy and evacuation of the abscess. 2. Intravenous drug use. RECOMMENDATIONS Okay to discharge with IV Cefepime IV x 6 weeks- until Nov. Outlined on Antibiotic infusion form. PO Cipro 500 bid x 6 weeks. PICC line ordered. Follow up with SULMA QUINTANILLA in [facility] and neurosurgery. Alexys Byrne MD Oct 19, 2016 12:35
--- NOTE | 2016-10-19 12:43 | HHI.PR ---
Subjective Remarks Admission Notes: This is a pleasant 26 y/o male who is IV drug abuse, who came to ER with complaint of back pain, bilateral leg numbness and tingling sensation He was seen in Emergency room on October 07 2016 but did not complaint at that time of Neurological symptoms, He says he has been extremely weak and unable to move his lower extremities. He has not been able to walk, and had to call fire rescue to bring him into the emergency department. He is accompanied by his mother, who confirms this. He tells me that a few days ago, he lied and told our doctor that he was not IV drug user. However he does use IV drugs. He reports using IV Dilaudid 2-3 days ago. 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 He tells me he is constantly feeling tons of vibration from these large machines that he is using. He denies any bowel or bladder dysfunction. CT scan from October 07, 2016 CT scan of the C-spine that demonstrated early/mild lower cervical degenerative changes. There was mild left foraminal encroachment at C5/C6. No high-grade foraminal or spinal stenosis at any level. There was no evidence of acute disc herniation. CT scan of the T-spine demonstrated mild multifocal degenerative and suspected chronic Scheuermann's changes of thoracic spine. There was also mild kyphoscoliosis. No fracture or acute appearing malalignment. Mild bilateral foraminal stenosis from T7/T8-T10/T11, mostly on the basis of mild facet osteoarthritis. No spinal stenosis no acute disc herniation seen. Noncalcified nodule of the right upper lobe and follow-up noncontrast CT of the chest recommended 6 months. 10/14: Seen in his bedroom in the presence of his Mother Mrs. Emily Acosta, With Diagnosis of Thoracic epidural lesion probable infectious granulation tissue, status post T6-T7-T8 decompressive semi-laminectomy, resection of epidural mass Use of high-power intraoperative microscope for epidural lesion resection by Doctor Tarun Montoya 10/13/16, improving Neurological symptoms. 10/15: Stable in his bedroom, asking for pain medicine was explained he has Narcotic dependence and may go into respiratory insufficiency if continue increasing dosages of Narcotics, as per Neurosurgery the patient doing well post op DAVID draining, his Mother and both grandfather and grandmother in the room. 10/16: Stopped Vancomycin and continue Cefepime IV for six weeks, Cipro by mouth 500 mg BID for six weeks and Arrangements for IV antibiotics at home. 10/17: DAVID drain removed yesterday by Neurosurgery. 10/18: worked with Physical Therapy, improving pain. 10/19: Stable in his bedroom, improving condition, walked 100 feet with Physical Therapy, Doctor Dontfraid present ordering home medicines and also ordering a PICC line for discharge on antibiotics, not yet clear for discharge by Neurosurgery, the patient states he continue with tingling sensation and weakness on bilateral legs specially on left leg. Objective Vital Signs Date Time Temp Pulse Resp B/P (MAP) Pulse Ox O2 Delivery O2 Flow Rate FiO2 10/19/16 12:00 97.0 72 16 117/62 (80) 99 10/19/16 08:00 97.3 64 16 113/65 (81) 97 10/19/16 05:59 96.5 74 16 107/57 (74) 98 10/19/16 04:00 66 10/19/16 00:00 99.4 70 18 112/59 (76) 99 10/19/16 00:00 77 10/18/16 20:00 99.6 74 18 115/69 (84) 100 10/18/16 20:00 76 10/18/16 18:26 16 10/18/16 16:00 98.0 88 18 128/71 (90) 100 10/18/16 16:00 82 10/18/16 15:29 20 I/O 10/18/16 10/18/16 10/18/16 10/19/16 10/19/16 10/19/16 06:59 14:59 22:59 06:59 14:59 22:59 Intake Total 2206 ml 240 ml 500 ml Output Total 600 ml 2350 ml 1000 ml 1000 ml Balance -600 ml -144 ml -760 ml -500 ml Intake Oral 1440 ml 240 ml IV Total 766 ml 500 ml Output Urine Total 600 ml 2350 ml 1000 ml 1000 ml # Bowel Movements 0 0 Result Diagram: 10/18/16 0457 Imaging Last Impressions Thoracic Spine MRI 10/13/16 0000 Signed Impressions: Service Date/Time: Thursday, October 13, 2016 14:52 - CONCLUSION: 1. Extensive posterior epidural enhancing collection which extends from the T6-7 level to the T9-10 level and measures 7 mm AP x 16 mm transverse x 100 mm sagittal dimension and results in significant cord compression which is most severe at T7-8. This collection likely represents epidural abscess. Clinical correlation is recommended. 2. 3. The findings were called immediately to Deepti Mcconnell PA-C at 4: 4. 45 PM on 10/13/2016. Stanley Aviles MD Lumbar Spine MRI 10/13/16 0000 Signed Impressions: Service Date/Time: Thursday, October 13, 2016 14:52 - CONCLUSION: Normal examination. Justin Garg Jr., MD Cervical Spine MRI 10/13/16 0000 Signed Impressions: Service Date/Time: Thursday, October 13, 2016 14:52 - CONCLUSION: 1. Diffuse asymmetric disc osteophyte complex to the left at C5-6 resulting in moderate left neural foraminal narrowing. 2. Minimal diffuse symmetric disc bulge at C6-7. 3. No evidence of abscess. Stanley Aviles MD Procedures With Diagnosis of Thoracic epidural lesion probable infectious granulation tissue, status post T6-T7-T8 decompressive semi-laminectomy, resection of epidural mass Use of high-power intraoperative microscope for epidural lesion resection by Doctor Tarun Montoya 10/13/16 Other Results Laboratory Tests Test 10/13/16 14:10 10/13/16 14:15 10/13/16 17:00 10/14/16 16:40 White Blood Count 6.2 TH/MM3 Red Blood Count 4.27 MIL/MM3 Hemoglobin 12.7 GM/DL Hematocrit 37.1 % Mean Corpuscular Volume 87.0 FL Mean Corpuscular Hemoglobin 29.8 PG Mean Corpuscular Hemoglobin Concent 34.2 % Red Cell Distribution Width 13.7 % Platelet Count 322 TH/MM3 Mean Platelet Volume 8.4 FL Neutrophils (%) (Auto) 78.6 % Lymphocytes (%) (Auto) 16.1 % Monocytes (%) (Auto) 4.3 % Eosinophils (%) (Auto) 0.4 % Basophils (%) (Auto) 0.6 % Neutrophils # (Auto) 4.9 TH/MM3 Lymphocytes # (Auto) 1.0 TH/MM3 Monocytes # (Auto) 0.3 TH/MM3 Eosinophils # (Auto) 0.0 TH/MM3 Basophils # (Auto) 0.0 TH/MM3 CBC Comment DIFF FINAL Differential Comment Prothrombin Time 11.3 SEC Prothromb Time International Ratio 1.0 RATIO Activated Partial Thromboplast Time 37.2 SEC Lactic Acid Level 0.9 mmol/L Urine Color YELLOW Urine Turbidity CLEAR Urine pH 6.0 Urine Specific [place] 1.028 Urine Protein TRACE mg/dL Urine Glucose (UA) NEG mg/dL Urine Ketones 40 mg/dL Urine Occult Blood NEG Urine Nitrite NEG Urine Bilirubin NEG Urine Urobilinogen 2.0 MG/DL Urine Leukocyte Esterase NEG Urine RBC LESS THAN 1 /hpf Urine WBC 1 /hpf Urine Mucus FEW /lpf Microscopic Urinalysis Comment CATH-CULT NOT IND Urine Opiates Screen POS Urine Barbiturates Screen NEG Urine Amphetamines Screen NEG Urine Benzodiazepines Screen NEG Urine Cocaine Screen NEG Urine Cannabinoids Screen POS Hepatitis A IgM Antibody NEGATIVE Hepatitis B Surface Antigen NEGATIVE Hepatitis B Core IgM Antibody NEGATIVE Hepatitis C Antibody REACTIVE Test 10/14/16 16:50 10/15/16 09:35 10/18/16 04:57 10/19/16 04:45 Blood Urea Nitrogen 7 MG/DL Creatinine 0.59 MG/DL 0.61 MG/DL Random Glucose 89 MG/DL Total Protein 7.7 GM/DL Albumin 2.8 GM/DL Calcium Level 8.7 MG/DL Alkaline Phosphatase 43 U/L Aspartate Amino Transf (AST/SGOT) 21 U/L Alanine Aminotransferase (ALT/SGPT) 19 U/L Total Bilirubin 0.4 MG/DL Sodium Level 138 MEQ/L Potassium Level 3.7 MEQ/L Chloride Level 105 MEQ/L Carbon Dioxide Level 27.3 MEQ/L Anion Gap 6 MEQ/L Erythrocyte Sedimentation Rate 82 mm/hr Estimat Glomerular Filtration Rate 157 ML/MIN Vancomycin Level Trough 9.4 MCG/ML Objective Remarks GENERAL: Obesity, No acute distress. HEAD: Normocephalic and atraumatic. NECK: Supple, trachea midline. No JVD. CARDIOVASCULAR: Regular rate and rhythm without murmurs, gallops, or rubs. RESPIRATORY: Breath sounds equal bilaterally. No accessory muscle use. No rhonchi or rales. GASTROINTESTINAL: Abdomen soft, non-tender, nondistended. no rebound or guarding EXTREMITIES: No cyanosis or edema. patient has difficulty moving lower extremities NEURO: No focal deficits. PSYCH: Alert and oriented x 3. Medications and IVs Current Medications Medications (Trade) Dose Ordered Sig/Rodrigue Route Start Time Stop Time Status Last Admin Sodium Chloride 1,000 ml @ 100 mls/hr Q10H IV 10/13/16 18:22 10/18/16 17:05 (NS Flush) 2 ml UNSCH PRN IV FLUSH 10/13/16 18:30 (NS Flush) 2 ml BID IV FLUSH 10/13/16 21:00 10/16/16 21:00 (Tylenol) 650 mg Q4H PRN PO 10/13/16 18:30 10/16/16 17:32 (Zofran Inj) 4 mg Q6H PRN IVP 10/13/16 18:30 (Angela-Colace) 1 tab BID PO 10/13/16 21:00 10/18/16 20:20 (Milk Of Magnesia Liq) 30 ml Q12H PRN PO 10/13/16 18:30 (Senokot) 17.2 mg Q12H PRN PO 10/13/16 18:30 (Dulcolax Supp) 10 mg DAILY PRN RECTAL 10/13/16 18:30 (Lactulose Liq) 30 ml DAILY PRN PO 10/13/16 18:30 ([place] 10-325 Mg) 1 tab Q4H PRN PO 10/14/16 00:15 10/15/16 03:20 (Dilaudid) 4 mg Q4H PRN PO 10/14/16 00:30 10/19/16 11:22 (Narcan Inj) 0.4 mg UNSCH PRN IV 10/14/16 00:15 (Habitrol 21 Mg Patch.24 Hr) 1 patch DAILY T-DERMAL 10/14/16 17:00 10/17/16 09:20 Miscellaneous Information 1 DAILY T-DERMAL 10/15/16 09:00 10/17/16 09:00 Cefepime HCl 2000 mg/Sodium Chloride 100 ml @ 200 mls/hr Q8H IV 10/15/16 13:00 10/19/16 04:35 (Restoril) 7.5 mg HS PRN PO 10/17/16 19:45 10/18/16 23:25 A/P Assessment and Plan 1. Thoracic epidural lesion probable infectious granulation tissue, status post T6-T7-T8 decompressive semi-laminectomy, resection of epidural mass Use of high-power intraoperative microscope for epidural lesion resection by Doctor Tarun Montoya 10/13/16 as per ID specialist to continue Vancomycin and stopped Ceftriaxone and started on Cefepime. today recommended to Stop Vancomycin he will continue Cefepime IV for six weeks, and Cipro by mouth 500 mg BID for six months and okay to discharge once cleared by neurosurgery. DAVID drain removed, not yet cleared by Neurosurgery, arrangements for Home antibiotics performed by Doctor Byrne, also he is walking with walker today 100 feet. discontinued IV pain medicine. 2. Hepatitis C. to follow as outpatient. 3. Tobacco dependence/Polysubstance abuse strongly recommended to stop behavior. 4. Obesity strongly recommended diet and exercise. Discussed with Patient and nurse Miss Lynne, all questions answered to the best of my abilities Code Status Full Code DVT prophylaxis as per Neurosurgery. at this time on SCDs. Case discussed with Infectious Disease specialist Doctor Byrne appreciated input. Discharge Planning Once cleared by Neurosurgery. Donald Knutson MD Oct 19, 2016 12:43
[2016-10-19] MEDS: SODIUM CHLOR 0.9% 1000 ML INJ 1,000 ML IV SCH (13:07)
[2016-10-19] MEDS ORDERED: traMADol HCL 50 MG TAB PO PRN (15:00)
[2016-10-19] MEDS ORDERED: SODIUM CHLORIDE 0.9% FLUSH 10 ML FLUSH IV FLUSH PRN (17:00)
--- NOTE | 2016-10-19 17:16 | RADRPT ---
EXAM DATE/TIME: 10/19/2016 16:59 [facility] COMPARISON: CHEST SINGLE AP, October 07, 2016, 5:30. INDICATIONS : PICC line placement. MEDICAL HISTORY : None. SURGICAL HISTORY : None. ENCOUNTER: Initial ACUITY: 1 day PAIN SCORE: 5/10 LOCATION: Bilateral chest FINDINGS: A single view of the chest demonstrates the lungs to be symmetrically aerated without evidence of mas s, infiltrate or effusion. Right-sided PICC line with tip in the cavoatrial junction. The cardiomedia stinal contours are unremarkable. Osseous structures are intact. CONCLUSION: No acute disease. Sean Gomez MD on October 19, 2016 at 17:14 Board Certified Radiologist. This report was verified electronically.
--- NOTE | 2016-10-19 17:24 | HHI.NSPN ---
(Christopher Rivers) History Chief Complaint: Some back pain (Christopher Rivers) Interval History 10/13: 26-year-old male presents to the emergency room with complaint of approximately 2 weeks of progressive severe thoracic pain. He was seen in the emergency room approximately a week ago and a CT scan of the spine obtained which was within normal limits. He will return to the emergency room today with further progression of pain symptoms. He complains of a burning or stinging sensation across his abdomen for the past day. He also complains of intermittent pain radiating to the lower extremities for the past few days. He has had no definite problems with bowel or bladder dysfunction. No definite weakness in the lower extremities although he complains of anterior 3 days of diffuse numbness in the legs. No spasms in the lower extremities. No complaint of upper extremity pain and weakness numbness or paresthesia. He states that he has been able to walk today but only with rather severe pain. The patient was urgently taken to the operating room for aT6-T7-T8 decompressive semi-laminectomy with resection of epidural mass using a high- power intraoperative microscope. Post-operatively the patient went to a regular med/surg floor. 10/14: The patient is awake and alert watching TV with his mother. He states he is "hurting" and endorses pain to the back. He states the numbness to the lower extremities is better. 10/16: When seen this afternoon the patient is awake and alert watching TV. He states he is doing better and was up working with Physical Therapy earlier. He has some pain to the back but denies any to the extremities. He denies any numbness to the extremities or any saddle anaesthesia. 10/19: The patient is doing well this afternoon when seen and is watching TV visiting with his father. He continues to have some pain to the back at the incision. He does say he has numbness to the feet in the morning which resolves once he starts moving them. (Christopher Rivers) System Review Comments Constitutional: Patient denies any fever or chills. Respiratory: Patient denies any shortness of breath or productive cough. Cardiovascular: Patient denies any chest pain, palpitations or irregular heartbeat. Gastrointestinal: Patient denies any abdominal pain, nausea, vomiting or incontinence of stool. Genitourinary: Patient denies any incontinence of urine. Musculoskeletal: Patient still with some pain to the thoracic surgical site. He denies any pain or weakness to the extremities. Neurologic: Patient states he has some numbness to the feet in the morning which quickly resolves once he starts moving them. He denies any headache, dizziness or tingling. He denies any saddle anaesthesia. (Christopher Rivers) Exam Results Vital Signs Date Time Temp Pulse Resp B/P (MAP) Pulse Ox O2 Delivery O2 Flow Rate FiO2 10/19/16 12:32 16 10/19/16 12:00 97.0 72 117/62 (80) 99 10/15/16 11:41 21 Intake and Output 10/19/16 10/19/16 10/20/16 08:00 16:00 00:00 Intake Total 740 ml 15 ml Output Total 2000 ml 500 ml Balance -1260 ml -485 ml (Christopher Rivers) Physical Examination GENERAL: Patient is awake & alert watching TV. He appears comfortable w/o any distress. His affect is normal. SKIN: Warm, dry & intact except for upper thoracic surgical incision which is well approximated w/o any signs of infection, no rashes, ulcerations or other lesions. HEENT: Normocephalic, atraumatic. NECK: Full AROM w/o pain, no JVD, trachea midline. CARDIOVASCULAR: S1S2 w/RRR w/o M/G/R, radial & pedal pulses 2+ bilaterally, cap refill < 2 sec, no pedal edema. RESPIRATORY: CTAB w/o W/R/R, equal excursion, nonlaboured, on RA. GASTROINTESTINAL: Abdomen soft, nontender, positive bowel sounds. MUSCULOSKELETAL: PEREIRA w/o difficulty, no evident deformity or clubbing. TTP at thoracic surgical incision, dressing intact w/o any shadowing noted. NEUROLOGICAL: AAOx3. Speech clear & appropriate. Follows simple commands w/o difficulty. Sensation intact to light touch to all extremities. Motor strength 5/5 to all major flexion & extension muscle groups. (Christopher Rivers) Medical Decision Making Impression and Plan Impression: (1) Epidural abscess Thoracic epidural lesion-probable infectious granulation tissue. The patient continues to do well and is neurologically intact. Blood cultures x2 w/o growth 5 days. Wound culture with Pseudomonas aeruginosa. POD #6 () s/p : T6-T7-T8 decompressive semi-laminectomy, resection of epidural mass w/high- power intraoperative microscope. Plan: Discussed plan of care with patient and father. Primary management per Hospitalist. Antibiotics per Infectious Disease. Mobilise patient w/assistance as needed. PT eval & tx. Diet as tolerated. Pain meds. Patient is able to be discharged home w/outpatient therapy & antibiotics from NSGY's perspective. (Christopher Rivers) Attending Statement The exam, history, and the medical decision-making described in the above note were completed with the assistance of the mid-level provider. I reviewed and agree with the findings presented. I attest that I had a [id number] encounter with the patient on the same day, and personally performed and documented my assessment and findings in the medical record. (Edwin Rivera MD) Christopher Rivers Oct 19, 2016 17:24 Edwin Rivera MD Oct 25, 2016 17:56
[2016-10-20] VITALS: BP 129/79; PULSE 86; RESP 17; TEMP 98.4; O2SAT 100
[2016-10-20 00:02] VITALS: PULSE 88
[2016-10-20] MEDS: HYDROmorphone HCL 4 MG TAB PO PRN ×4 (00:16→13:02)
[2016-10-20] MEDS: TEMAZEPAM 7.5 MG CAP PO PRN (00:19)
[2016-10-20 04:06] VITALS: PULSE 55
[2016-10-20] MEDS: CEFEPIME INJ 2,000 MG in SODIUM CHLORIDE 0.9% INJ 100 ML IV SCH ×2 (04:47→12:09)
[2016-10-20 04:56] VITALS: BP 106/68; PULSE 68; RESP 19; TEMP 97.7; O2SAT 98
--- NOTE | 2016-10-20 07:52 | HHI.PR ---
Subjective Remarks resting comfortably with no distress. no fever. pain is controlled. no new complaints. Objective Vitals Vital Signs Date Time Temp Pulse Resp B/P (MAP) Pulse Ox O2 Delivery O2 Flow Rate FiO2 10/20/16 05:49 16 10/20/16 04:56 97.7 68 19 106/68 (81) 98 10/20/16 04:06 55 10/20/16 00:02 88 10/20/16 00:00 98.4 86 17 129/79 (96) 100 10/19/16 21:37 97.4 83 17 114/68 (83) 98 10/19/16 20:11 77 10/19/16 16:30 98.5 81 16 124/73 (90) 97 10/19/16 12:00 97.0 72 16 117/62 (80) 99 10/19/16 08:00 97.3 64 16 113/65 (81) 97 I/O 10/19/16 10/19/16 10/19/16 10/20/16 10/20/16 10/20/16 06:59 14:59 22:59 06:59 14:59 22:59 Intake Total 240 ml 1715 ml Output Total 1000 ml 1800 ml 300 ml 300 ml Balance -760 ml -85 ml -300 ml -300 ml Intake Oral 240 ml 1200 ml IV Total 515 ml Output Urine Total 1000 ml 1800 ml 300 ml 300 ml # Bowel Movements 0 0 Result Diagram: 10/20/16 0450 Imaging Last Impressions Thoracic Spine MRI 10/13/16 0000 Signed Impressions: Service Date/Time: Thursday, October 13, 2016 14:52 - CONCLUSION: 1. Extensive posterior epidural enhancing collection which extends from the T6-7 level to the T9-10 level and measures 7 mm AP x 16 mm transverse x 100 mm sagittal dimension and results in significant cord compression which is most severe at T7-8. This collection likely represents epidural abscess. Clinical correlation is recommended. 2. 3. The findings were called immediately to Deepti Mcconnell PA-C at 4: 4. 45 PM on 10/13/2016. Stanley Aviles MD Lumbar Spine MRI 10/13/16 0000 Signed Impressions: Service Date/Time: Thursday, October 13, 2016 14:52 - CONCLUSION: Normal examination. Justin Garg Jr., MD Cervical Spine MRI 10/13/16 0000 Signed Impressions: Service Date/Time: Thursday, October 13, 2016 14:52 - CONCLUSION: 1. Diffuse asymmetric disc osteophyte complex to the left at C5-6 resulting in moderate left neural foraminal narrowing. 2. Minimal diffuse symmetric disc bulge at C6-7. 3. No evidence of abscess. Stanley Aviles MD Objective Remarks GENERAL: This is a well-nourished, well-developed patient, in no apparent distress. CARDIOVASCULAR: Regular rate and regular rhythm without murmurs, gallops, or rubs. RESPIRATORY: Clear to auscultation. Breath sounds equal bilaterally. No wheezes , rales, or rhonchi. GASTROINTESTINAL: Abdomen soft, non-tender, nondistended. Normal, active bowel sounds MUSCULOSKELETAL: Extremities without clubbing, cyanosis, or edema. NEURO: Alert & Oriented x4 to person, place, time, situation. Moves all ext x4 Procedures T6-T7-T8 decompressive semi-laminectomy, resection of epidural mass Use of high- power intraoperative microscope for epidural lesion resection. PICC line insertion. Medications and IVs Current Medications Acetaminophen (Tylenol) 650 mg ONCE ONCE PO Last administered on 10/13/16 14: 28; Start 10/13/16 at 14:00; Stop 10/13/16 at 14:01; Status DC Gadodiamide (Omniscan Pf Inj) 20 ml STK-MED ONCE IV Last administered on 15:57; Start 10/13/16 at 15:57; Stop 10/13/16 at 15:58; Status DC Morphine Sulfate (Morphine Inj) 2 mg ONCE ONCE IV PUSH Last administered on 17:12; Start 10/13/16 at 17:15; Stop 10/13/16 at 17:16; Status DC Sodium Chloride 1,000 ml @ 100 mls/hr Q10H IV Last administered on 10/19/16 13:07; Start 10/13/16 at 18:22; Stop 10/19/16 at 13:46; Status DC Sodium Chloride (NS Flush) 2 ml UNSCH PRN IV FLUSH FLUSH AFTER USING IV ACCESS ; Start 10/13/16 at 18:30 Sodium Chloride (NS Flush) 2 ml BID IV FLUSH Last administered on 10/19/16 22: 02; Start 10/13/16 at 21:00 Acetaminophen (Tylenol) 650 mg Q4H PRN PO TEMP > 100.4 Last administered on 17:32; Start 10/13/16 at 18:30 Ondansetron HCl (Zofran Inj) 4 mg Q6H PRN IVP NAUSEA OR VOMITING; Start at 18:30 Naloxone HCl (Narcan Inj) 0.4 mg UNSCH PRN IV SEE LABEL COMMENTS; Start at 18:30; Stop 10/14/16 at 00:23; Status DC Senna/Docusate Sodium (Angela-Colace) 1 tab BID PO Last administered on 20:03; Start 10/13/16 at 21:00 Magnesium Hydroxide (Milk Of Magnesia Liq) 30 ml Q12H PRN PO MILD - MODERATE CONSTIPATION; Start 10/13/16 at 18:30 Sennosides (Senokot) 17.2 mg Q12H PRN PO MODERATE - SEVERE CONSTIPATION; Start 10/13/16 at 18:30 Bisacodyl (Dulcolax Supp) 10 mg DAILY PRN RECTAL SEVERE CONSITIPATION; Start at 18:30 Lactulose (Lactulose Liq) 30 ml DAILY PRN PO SEVERE CONSITIPATION; Start at 18:30 Vancomycin HCl 1500 mg/Sodium Chloride 515 ml @ 257.5 mls/ hr Q8H IV Last administered on 10/17/16 05:03; Start 10/13/16 at 20:00; Stop 10/17/16 at 11:06 ; Status DC Pharmacy Profile Note 0 ml @ 0 mls/hr UNSCH OTHER ; Start 10/13/16 at 18:45; Stop 10/19/16 at 11:26; Status DC Ceftriaxone Sodium 2000 mg/ Sodium Chloride 100 ml @ 200 mls/hr Q12H IV Last administered on 10/15/16 08:44; Start 10/13/16 at 20:00; Stop 10/15/16 at 12:09 ; Status DC Morphine Sulfate (Morphine Inj) 2 mg Q3H PRN IV PUSH PAIN SCALE 6 TO 10 Last administered on 10/14/16 15:12; Start 10/13/16 at 19:00; Stop 10/14/16 at 16:53 ; Status DC Miscellaneous Information SPECIFIC LAB TO BE DRAWN:VANCO TROUGH DATE TO... ONCE ONCE .XX Last administered on 10/14/16 21:31; Start 10/14/16 at 19:45; Stop 10/14/16 at 19:46; Status DC Thrombin (Thrombin Top Soln) 10,000 units STK-MED ONCE .ROUTE Last administered on 10/13/16 21:37; Start 10/13/16 at 19:44; Stop 10/13/16 at 19:45 ; Status DC Gelatin (Gelfoam 100 Top) 1 foam STK-MED ONCE .ROUTE Last administered on 21:37; Start 10/13/16 at 19:44; Stop 10/13/16 at 19:45; Status DC Gentamicin Sulfate (Gentamicin Inj) 240 mg STK-MED ONCE .ROUTE Last administered on 10/13/16 21:37; Start 10/13/16 at 19:44; Stop 10/13/16 at 19:45 ; Status DC Lidocaine/ Epinephrine (Xylocaine-Epi Mpf 2%-1:200,000 Inj) 20 ml STK-MED ONCE .ROUTE ; Start 10/13/16 at 19:47; Stop 10/13/16 at 19:48; Status DC Hydromorphone HCl (Dilaudid Pf Inj) 2 mg STK-MED ONCE .ROUTE ; Start 10/13/16 at 20:36; Stop 10/13/16 at 20:37; Status DC Ketamine HCl (Ketalar Inj) 500 mg STK-MED ONCE .ROUTE ; Start 10/13/16 at 21:00 ; Stop 10/13/16 at 21:01; Status DC Lidocaine/ Epinephrine (Xylocaine-Epi 1%-1:100,000 Inj) 30 ml STK-MED ONCE INFIL Last administered on 10/13/16 21:37; Start 10/13/16 at 21:37; Stop 10/13 at 21:42; Status DC Hydromorphone HCl (Dilaudid Pf Inj) 2 mg STK-MED ONCE .ROUTE ; Start 10/13/16 at 23:49; Stop 10/13/16 at 23:50; Status DC Midazolam HCl (Versed Inj) 2 mg STK-MED ONCE .ROUTE ; Start 10/14/16 at 00:16; Stop 10/14/16 at 00:17; Status DC Acetaminophen/ Hydrocodone Bitart ([place] 10-325 Mg) 1 tab Q4H PRN PO PAIN SCALE 1 TO 5 Last administered on 10/15/16 03:20; Start 10/14/16 at 00:15 Hydromorphone HCl (Dilaudid) 4 mg Q4H PRN PO PAIN SCALE 6 TO 10 Last administered on 10/20/16 04:49; Start 10/14/16 at 00:30 Naloxone HCl (Narcan Inj) 0.4 mg UNSCH PRN IV SEE LABEL COMMENTS; Start at 00:15 Fentanyl Citrate (fentaNYL INJ) 250 mcg STK-MED ONCE .ROUTE ; Start 10/14/16 at 00:16; Stop 10/14/16 at 00:17; Status DC Miscellaneous Information ALL NURSING DEPARTME... UNSCH PRN .XX SEE LABEL COMMENTS; Start 10/14/16 at 00:10; Stop 10/15/16 at 00:09; Status DC Morphine Sulfate (Morphine Inj) 4 mg STK-MED ONCE .ROUTE Last administered on 00:54; Start 10/14/16 at 00:54; Stop 10/14/16 at 00:55; Status DC Nicotine (Habitrol 14 Mg Patch.24 Hr) 1 patch DAILY T-DERMAL ; Start 10/14/16 at 16:45; Stop 10/14/16 at 17:27; Status DC Miscellaneous Information 1 DAILY T-DERMAL Last administered on 10/16/16 09:00 ; Start 10/15/16 at 09:00; Stop 10/17/16 at 11:09; Status DC Nicotine (Habitrol 21 Mg Patch.24 Hr) 1 patch DAILY T-DERMAL Last administered on 10/17/16 09:20; Start 10/14/16 at 17:00 Miscellaneous Information 1 DAILY T-DERMAL Last administered on 10/17/16 09:00 ; Start 10/15/16 at 09:00 Hydromorphone HCl (Dilaudid Pf Inj) 0.5 mg Q4H PRN IV PUSH BREAKTHROUGH PAIN Last administered on 10/19/16 08:45; Start 10/14/16 at 17:00; Stop 10/19/16 at 11:19; Status DC Hydromorphone HCl (Dilaudid Pf Inj) 1 mg ONCE ONCE IV PUSH Last administered on 10/15/16 01:44; Start 10/15/16 at 00:00; Stop 10/15/16 at 00:01; Status DC Miscellaneous Information SPECIFIC LAB TO BE DRAWN:VANCOMYCIN TROUGH DATE TO... ONCE ONCE .XX Last administered on 10/17/16 03:45; Start 10/17/16 at 03:45; Stop 10/17/16 at 03:46; Status DC Cefepime HCl 2000 mg/Sodium Chloride 100 ml @ 200 mls/hr Q8H IV Last administered on 10/20/16 04:47; Start 10/15/16 at 13:00 Lactulose (Lactulose Liq) 30 ml ONCE ONCE PO Last administered on 10/15/16 14 :09; Start 10/15/16 at 14:00; Stop 10/15/16 at 14:01; Status DC Temazepam (Restoril) 7.5 mg ONCE ONCE PO Last administered on 10/17/16 00:05 ; Start 10/17/16 at 00:00; Stop 10/17/16 at 00:01; Status DC Vancomycin HCl 1750 mg/Sodium Chloride 517.5 ml @ 258.75 mls/ hr Q12H IV Last administered on 10/19/16 05:54; Start 10/17/16 at 17:00; Stop 10/19/16 at 11:26 ; Status DC Miscellaneous Information SPECIFIC LAB TO BE GARY... ONCE ONCE .XX Last administered on 10/19/16 04:45; Start 10/19/16 at 04:45; Stop 10/19/16 at 04:46 ; Status DC Temazepam (Restoril) 7.5 mg HS PRN PO sleep Last administered on 10/20/16 00: 19; Start 10/17/16 at 19:45 Tramadol HCl (Ultram) 50 mg Q6H PRN PO BREAKTHROUGH PAIN; Start 10/19/16 at 15: 00 Sodium Chloride (NS Flush) See Protocol DAILY IV FLUSH ; Start 10/20/16 at 09:00 Sodium Chloride (NS Flush) See Protocol UNSCH PRN IV FLUSH SEE PROTOCOL TABLE; Start 10/19/16 at 17:00 Heparin Sodium (Porcine) (Heparin Central Flush) See Protocol DAILY IV FLUSH ; Start 10/20/16 at 09:00 Heparin Sodium (Porcine) (Heparin Central Flush) See Protocol UNSCH PRN IV FLUSH SEE PROTOCOL TABLE; Start 10/19/16 at 17:00 Sodium Chloride (NS Flush) UNSCH PRN IV FLUSH SEE PROTOCOL TABLE; Start at 17:00 A/P Assessment and Plan 1. Thoracic epidural lesion probable infectious granulation tissue, status post T6-T7-T8 decompressive semi-laminectomy, resection of epidural mass Use of high-power intraoperative microscope for epidural lesion resection by Doctor Tarun Montoya 10/13/16 as per ID specialist to continue Vancomycin and stopped Ceftriaxone and started on Cefepime. today recommended to Stop Vancomycin he will continue Cefepime IV for six weeks, and Cipro by mouth 500 mg BID for six months and okay to discharge once cleared by neurosurgery. cleared by neurosurgery for discharge. 2. Hepatitis C. to follow as outpatient. 3. Tobacco dependence/Polysubstance abuse strongly recommended to stop behavior. 4. Obesity strongly recommended diet and exercise. Discharge Planning dc home with [facility] and f/u with pcp,ID and neurosurgery. see med list. d/w the patient. time spent 35 min. Racquel Christensen MD Oct 20, 2016 07:52
[2016-10-20] MEDS ORDERED: OXYC1CAP PO (07:55)
[2016-10-20] MEDS ORDERED: CYCL1TAB29 PO (07:55)
[2016-10-20] MEDS ORDERED: CIPR-9 PO (07:55)
--- NOTE | 2016-10-20 07:55 | HHI.DCPOC ---
Discharge Care Plan Diagnosis: (1) Epidural abscess Your Health Problems Are: Chronic Pain Goals to Promote Your Health * To prevent worsening of your condition and complications * To maintain your health at the optimal level Directions to Meet Your Goals Take your medications as prescribed Follow your dietary instruction Follow activity as directed Keep your appointments as scheduled Take your immunizations and boosters as scheduled If your symptoms worsen call your PCP, if no PCP go to Urgent Care Center or Emergency Room Smoking is Dangerous to Your Health. Avoid second hand smoke Call the 24-hour hour crisis hotline for domestic abuse at Racquel Christensen MD Oct 20, 2016 07:55
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
[2016-10-20 08:00] VITALS: BP 122/69; PULSE 67; RESP 15; TEMP 97.7; O2SAT 96
[2016-10-20] MEDS: DOCUSATE SODIUM 50 MG/SENNA 8.6 MG TAB PO SCH (09:00)
[2016-10-20] MEDS ORDERED: SODIUM CHLORIDE 0.9% FLUSH 10 ML FLUSH IV FLUSH SCH (09:00)
[2016-10-20] MEDS: NICOTINE 21 MG/24 HR PATCH T-DERMAL SCH (09:00)
[2016-10-20] MEDS: SODIUM CHLORIDE 0.9% FLUSH 10 ML FLUSH IV FLUSH SCH (09:09)
[2016-10-20] MEDS: REMOVE OLD PATCH T-DERMAL SCH (10:14)
[2016-10-20 12:00] VITALS: BP 121/86; PULSE 84; RESP 16; TEMP 98.2; O2SAT 98
[2016-10-21] MEDS ORDERED: OXYC-395 PO (14:45)
[2016-10-21] MEDS ORDERED: PERI8.6T PO (15:54)
[2016-10-30] MEDS ORDERED: OXYC-395 PO (08:55)
[2016-10-30] MEDS ORDERED: MELA1TAB18 PO (08:57)
[2016-11-13] MEDS ORDERED: TRAM50TA PO (13:17)
== END 2016-10-20 15:34 | disposition home health service (06) | DRG 30 ==
LOC: NEPD 10:41 → NEDA 18:22 → HPAC 20:34 → HOCB 10-14 01:40
PROVIDERS: ADMIT Internal Medicine; ATTEND Internal Medicine
PROC: 00NX0ZZ Release Thoracic Spinal Cord, Open Approach (ICD-10-PCS; 2016-10-13)
PROC: 00BX0ZZ Excision of Thoracic Spinal Cord, Open Approach (ICD-10-PCS; principal; 2016-10-13 20:43)
PROC: 02HV33Z Insertion of Infusion Device into Superior Vena Cava, Percutaneous Approach (ICD-10-PCS; 2016-10-19)
DX: G06.1 Intraspinal abscess and granuloma (principal); F11.10 Opioid abuse, uncomplicated; B19.20 Unspecified viral hepatitis C without hepatic coma; F17.210 Nicotine dependence, cigarettes, uncomplicated; F12.10 Cannabis abuse, uncomplicated; E66.9 Obesity, unspecified; Z68.34 Body mass index [BMI] 34.0-34.9, adult; B96.5 Pseudomonas (aeruginosa) (mallei) (pseudomallei) as the cause of diseases classified elsewhere; Z71.3 Dietary counseling and surveillance; Z88.8 Allergy status to other drugs, medicaments and biological substances; S46.911A Strain of unspecified muscle, fascia and tendon at shoulder and upper arm level, right arm, initial encounter; X58.XXXA Exposure to other specified factors, initial encounter
CPT/HCPCS: 36569; 71010; 72156; 72157; 72158; 76000; 76937; 80053; 80074; 80202; 80307; 81001; 82565; 83605; 85025; 85610; 85652; 85730; 87015; 87040; 87070; 87077; 87102; 87116; 87186; 87205; 87206; 88305; 93306; 94150; 96374; 99283; A9579; C1751; J0692; J0696; J1170; J1580; J1642; J2250; J2270; J2405; J2710; J3010; J3370; J7030; J7040

== ENCOUNTER 2017-03-08 18:54 | Emergency (ER) | payer SELFPAY ==
[~2017-03-08] VITALS: Ht 180.3 cm; Wt 100.0 kg
[~2017-03-08 18:54] MED LIST changes: +CIPR-9 PO; +CYCL10TA PO; -CYCL1TAB29 PO; -IBUP-232 PO; +MELA1TAB18 PO; +PERI8.6T PO; +TRAM50TA PO; -TYLETAB34 PO
[2017-03-08] MEDS ORDERED: GADODIAMIDE PF 287 MG/ML 20 ML VIAL (for RAD MRI) IVCONTRAST ONE (18:55)
[2017-03-08 18:59] VITALS: BP 131/80; PULSE 87; RESP 16; TEMP 98.1; O2SAT 99
[2017-03-08] MEDS ORDERED: OXYC-395 PO (23:44)
--- NOTE | 2017-03-09 00:25 | PD ---
HPI Chief Complaint: Skin Problem Time Seen by Provider: 23:29 Travel History International Travel<30 days: No Contact w/Intl Traveler<30days: No Traveled to known affect area: No History of Present Illness HPI patient is a 27 year old male ivda last used a few days ago presents with a few day history of right antecubital fossa which has been draining for two days. patient states ge shot crushed up oxycodone in this area. also conplains of thiracic back pain and has a history of epidural abscess. denies fevers, states pain is severe. PFSH Past Medical History Arthritis: No Autoimmune Disease: No Anxiety: Yes Cancer: No Cardiovascular Problems: No Diabetes: No Diminished Hearing: No Endocrine: No Genitourinary: No Hepatitis: Yes ( hep c) Neurologic: No Psychiatric: No Respiratory: No Thyroid Disease: No Tetanus Vaccination: < 5 Years Influenza Vaccination: No Past Surgical History Neurologic Surgery: Yes (ABCESS ON SPINE REMOVE) Social History Alcohol Use: Yes (OCC SOCIAL) Tobacco Use: Yes (1PPD) Substance Use: Yes (THC, iv dilaudid ) Allergies-Medications (Allergen,Severity, Reaction): Coded Allergies: acetaminophen (Verified Allergy, Severe, hives , 11/13/16) naproxen (Verified Allergy, Intermediate, rash/ hepC, 11/13/16) Reported Meds & Prescriptions Reported Meds & Active Scripts Active Bactrim DS (Sulfamethoxazole-Trimethoprim) 800-160 Mg Tab 1 Tab PO BID 7 Days Tramadol (Tramadol HCl) 50 Mg Tab 50 Mg PO Q8H PRN Melatonin 10 Mg-1 Mg Tab 10 Mg PO HS PRN Cipro (Ciprofloxacin HCl) 500 Mg Tab 500 Mg PO BID 42 Days Flexeril (Cyclobenzaprine HCl) 10 Mg Tab 10 Mg PO TID PRN Reported Oxycodone (Oxycodone HCl) 10 Mg Tab 10 Mg PO Q6H PRN Review of Systems Except as stated in HPI: all other systems reviewed are Neg Physical Exam Narrative GENERAL: wd wn in nad. SKIN: Warm and dry. there is a 0.5 cm wound in the right ac fossa with purulent drainage. no surrounding cellulitis induration without significant fluid collection. HEAD: Atraumatic. Normocephalic. EYES: Pupils equal and round. No scleral icterus. No injection or drainage. ENT: No nasal bleeding or discharge. Mucous membranes pink and moist. NECK: Trachea midline. No JVD. CARDIOVASCULAR: Regular rate and rhythm. RESPIRATORY: No accessory muscle use. Clear to auscultation. Breath sounds equal bilaterally. GASTROINTESTINAL: Abdomen soft, non-tender, nondistended. Hepatic and splenic margins not palpable. MUSCULOSKELETAL: Extremities without clubbing, cyanosis, or edema. No obvious deformities. well healed surgical scar thoracic spine minimal tenderness midline. there is no joint effusion in the rue and right elbow. full nt range of motion. NEUROLOGICAL: Awake and alert. No obvious cranial nerve deficits. Motor grossly within normal limits. Five out of 5 muscle strength in the arms and legs. Normal speech. PSYCHIATRIC: Appropriate mood and affect; insight and judgment normal. Data Data Last Documented VS Vital Signs Date Time Temp Pulse Resp B/P (MAP) Pulse Ox O2 Delivery O2 Flow Rate FiO2 03/09/17 03:16 03/09/17 01:00 56 16 99 Room Air 03/08/17 18:59 98.1 Orders Orders Complete Blood Count With Diff (03/09/17 00:22) Comprehensive Metabolic Panel (03/09/17 00:22) Lactic Acid (03/09/17 00:22) Iv Access Insert/Monitor (03/09/17 00:22) Ecg Monitoring (03/09/17 00:22) Oximetry (03/09/17 00:22) Morphine Inj (Morphine Inj) (03/09/17 00:30) Sodium Chloride 0.9% Flush (Ns Flush) (03/09/17 00:30) Mri T Spine W & W/O Contrast (03/09/17 ) Lorazepam (Ativan) (03/09/17 00:30) Morphine Inj (Morphine Inj) (03/09/17 01:00) Gadodiamide Pf Inj (Omniscan Pf Inj) (03/08/17 18:55) Ed Discharge Order (03/09/17 02:58) Labs Laboratory Tests Test 03/09/17 00:38 White Blood Count 8.2 TH/MM3 Red Blood Count 4.70 MIL/MM3 Hemoglobin 13.8 GM/DL Hematocrit 39.6 % Mean Corpuscular Volume 84.3 FL Mean Corpuscular Hemoglobin 29.4 PG Mean Corpuscular Hemoglobin Concent 34.9 % Red Cell Distribution Width 13.8 % Platelet Count 393 TH/MM3 Mean Platelet Volume 8.1 FL Neutrophils (%) (Auto) 67.8 % Lymphocytes (%) (Auto) 26.2 % Monocytes (%) (Auto) 4.2 % Eosinophils (%) (Auto) 0.7 % Basophils (%) (Auto) 1.1 % Neutrophils # (Auto) 5.6 TH/MM3 Lymphocytes # (Auto) 2.2 TH/MM3 Monocytes # (Auto) 0.3 TH/MM3 Eosinophils # (Auto) 0.1 TH/MM3 Basophils # (Auto) 0.1 TH/MM3 CBC Comment DIFF FINAL Differential Comment Blood Urea Nitrogen 12 MG/DL Creatinine 0.83 MG/DL Random Glucose 78 MG/DL Total Protein 9.2 GM/DL Albumin 3.9 GM/DL Calcium Level 9.5 MG/DL Alkaline Phosphatase 58 U/L Aspartate Amino Transf (AST/SGOT) 13 U/L Alanine Aminotransferase (ALT/SGPT) 17 U/L Total Bilirubin 0.7 MG/DL Sodium Level 138 MEQ/L Potassium Level 3.4 MEQ/L Chloride Level 101 MEQ/L Carbon Dioxide Level 27.8 MEQ/L Anion Gap 9 MEQ/L Estimat Glomerular Filtration Rate 110 ML/MIN Lactic Acid Level 0.9 mmol/L MDM Medical Decision Making Medical Screen Exam Complete: Yes Emergency Medical Condition: Yes Differential Diagnosis right antecubital abscess, sepsis unlikely, IV drug abuse, epidural abscess. Narrative Course Patient roomed emerged permit, significant history of epidural abscess continues to shoot oxycodone. Patient questioned extensively about his back pain regarding if this is an acute event or something chronic, he states the pain is been gradually getting worse ever since surgery. Patient had an MRI performed which shows no obvious acute infection: Last 24 hours Impressions Thoracic Spine MRI 03/09/17 0000 Signed Impressions: Service Date/Time: Thursday, March 09, 2017 01:37 - CONCLUSION: 1. Postsurgical changes as above. No evidence of disc protrusion or spinal canal stenosis. Chilango Schmidt MD The patient counseled extensively on the need to stop using IV drugs. Discussed at length the adverse health consequences including infection addiction and permanent disability. Will be treated with by mouth antibiotics. There is no indication for further drainage of his abscess at this time. Discussed return to ED criteria. He is stable for discharge. Discussed needs follow-up with his primary care physician for further pain management as he admits to shooting the oxycodone Diagnosis Primary Impression: Abscess of antecubital fossa Referrals: [facility] Patient Instructions: Abscess (GEN), General Instructions Med/Other Pt SpecificInfo: Prescription(s) given Scripts Sulfamethoxazole-Trimethoprim (Bactrim DS) 800-160 Mg Tab 1 TAB PO BID for Infection for 7 Days, #14 TAB 0 Refills Prov: Stanley Figueroa MD 03/09/17 Disposition: 01 DISCHARGE HOME Condition: Stable Stanley Figueroa MD Mar 09, 2017 00:25
[2017-03-09] MEDS ORDERED: LORazepam 1 MG TAB PO PRN (00:30)
[2017-03-09] MEDS ORDERED: SODIUM CHLORIDE 0.9% FLUSH 10 ML FLUSH IV FLUSH PRN (00:30)
[2017-03-09] MEDS ORDERED: MORPHINE SULFATE 4 MG/ML INJ IV PUSH ONE (00:30)
[2017-03-09 00:42] VITALS: O2SAT 100
[2017-03-09 00:53] LABS: AUTOMATED NEUTROPHIL # 5.6 TH/MM3 (1.8-7.7); BASOPHIL # 0.1 TH/MM3 (0-0.2); BASOPHIL % 1.1 % (0.0-2.0); EOSINOPHIL # 0.1 TH/MM3 (0-0.4); EOSINOPHIL % 0.7 % (0.0-4.0); HEMATOCRIT 39.6 % (39.0-51.0); HEMOGLOBIN 13.8 GM/DL (13.0-17.0); LYMPH % 26.2 % (9.0-44.0); LYMPHOCYTE # 2.2 TH/MM3 (1.0-4.8); MEAN CELL VOLUME 84.3 FL (80.0-100.0); MEAN CORPUSCULAR HEMOGLOBIN 29.4 PG (27.0-34.0); MEAN CORPUSCULAR HGB CONC 34.9 % (32.0-36.0); MEAN PLATELET VOLUME 8.1 FL (7.0-11.0); MONO % 4.2 % (0.0-8.0); MONOCYTE # 0.3 TH/MM3 (0-0.9); NEUT % 67.8 % (16.0-70.0); PLATELET COUNT 393 TH/MM3 (150-450); RED CELL DISTRIBUTION WIDTH 13.8 % (11.6-17.2); WHITE BLOOD COUNT 8.2 TH/MM3 (4.0-11.0)
[2017-03-09 01:00] VITALS: BP 139/89; PULSE 56; RESP 16; O2SAT 99
[2017-03-09] MEDS ORDERED: MORPHINE SULFATE 2 MG/ML INJ IV PUSH ONE (01:00)
[2017-03-09 01:10] LABS: ALBUMIN 3.9 GM/DL (3.4-5.0); ALT (GPT) 17 U/L (12-78); AST (GOT) 13 U/L (15-37); BICARBONATE 27.8 MEQ/L (21.0-32.0); BLOOD UREA NITROGEN 12 MG/DL (7-18); CALCIUM 9.5 MG/DL (8.5-10.1); CHLORIDE 101 MEQ/L (98-107); CREATININE 0.83 MG/DL (0.60-1.30); GLOMERULAR FILTRATION RATE 110 ML/MIN (>89); GLUCOSE,RANDOM 78 MG/DL (74-106); SODIUM (NA) 138 MEQ/L (136-145)
[2017-03-09 01:13] LABS: ALKALINE PHOSPHATASE 58 U/L (45-117); TOTAL BILIRUBIN ADULT 0.7 MG/DL (0.2-1.0); TOTAL PROTEIN 9.2 GM/DL (6.4-8.2)
--- NOTE | 2017-03-09 02:48 | RADRPT ---
EXAM DATE/TIME: 03/09/2017 01:37 [place] COMPARISON: MRI THORACIC SPINE W & W/O CONTRAST, October 13, 2016, 14:52. INDICATIONS : Back pain CONTRAST: 20 cc Omniscan (gadodiamide) IV MEDICAL HISTORY : Hepatitis C. SURGICAL HISTORY : Spinal abscess surgery. ENCOUNTER: Initial ACUITY: 1 day PAIN SCORE: 5/10 LOCATION: [facility] TECHNIQUE: Multiplanar multisequence MRI of the thoracic spine was performed. FINDINGS: VERTEBRA: Normal vertebral body height. Homogeneous marrow signal. There are postsurgical changes with laminec gracie at T7 and T8. ALIGNMENT: Normal. CORD: Normal position and configuration. POST CONTRAST: No abnormal areas of contrast enhancement seen. T1-T2: Normal. T2-T3: The thecal sac has a normal diameter. No evidence of disc bulge or protrusion. T3-T4: The thecal sac has a normal diameter. No evidence of disc bulge or protrusion. T4-T5: The thecal sac has a normal diameter. No evidence of disc bulge or protrusion. T5-T6: The thecal sac has a normal diameter. No evidence of disc bulge or protrusion. T6-T7: The thecal sac has a normal diameter. No evidence of disc bulge or protrusion. T7-T8: The thecal sac has a normal diameter. No evidence of disc bulge or protrusion. T8-T9: The thecal sac has a normal diameter. No evidence of disc bulge or protrusion. T9-T10: The thecal sac has a normal diameter. No evidence of disc bulge or protrusion. T10-T11: The thecal sac has a normal diameter. No evidence of disc bulge or protrusion. T11-T12: The thecal sac has a normal diameter. No evidence of disc bulge or protrusion. T12-L1: The thecal sac has a normal diameter. No evidence of disc bulge or protrusion. CONCLUSION: 1. Postsurgical changes as above. No evidence of disc protrusion or spinal canal stenosis. Chilango Schmidt MD on March 09, 2017 at 2:42 Board Certified Radiologist. This report was verified electronically.
[2017-03-09] MEDS ORDERED: BACT800T5 PO (02:57)
== END 2017-03-09 03:19 | disposition home or self-care (01) ==
LOC: NEPE 18:54
DX: L02.413 Cutaneous abscess of right upper limb (principal); F41.9 Anxiety disorder, unspecified; F17.200 Nicotine dependence, unspecified, uncomplicated; Z86.19 Personal history of other infectious and parasitic diseases; Z88.6 Allergy status to analgesic agent; Z79.899 Other long term (current) drug therapy
CPT/HCPCS: 72157; 80053; 83605; 85025; 96374; 99285; A9579; J2270

== ENCOUNTER 2017-04-13 08:58 | Emergency (ER) | payer SELFPAY ==
[~2017-04-13] VITALS: Ht 180.3 cm; Wt 100.0 kg
[~2017-04-13 08:58] MED LIST changes: +BACT800T5 PO; +OXYC-395 PO; -PERI8.6T PO
[2017-04-13 08:59] VITALS: BP 125/81; PULSE 93; RESP 18; TEMP 99.2; O2SAT 97
[2017-04-13] MEDS ORDERED: CEPH-460 PO (09:23)
[2017-04-13] MEDS ORDERED: BACT800T5 PO (09:23)
--- NOTE | 2017-04-13 09:27 | PD ---
HPI Chief Complaint: Skin Problem Time Seen by Provider: 09:21 Travel History International Travel<30 days: No Contact w/Intl Traveler<30days: No Traveled to known affect area: No History of Present Illness HPI 27-year-old male history of IV drug abuse presents for evaluation of an area of skin redness, pain to the right antecubital region. Symptoms started 1.5 weeks ago. He is throbbing, constant, worse with palpation of the skin. Denies any fevers or chills. He was here in mid March complaining of similar symptoms. He was prescribed Bactrim which he never got filled and eventually his symptoms resolved but then they returned 1.5 weeks ago. He also has a history of epidural abscess in his thoracic spine diagnosed in September 2016. He had a repeat MRI in March revealing no evidence of residual epidural abscess. No other complaints at this time. PFSH Past Medical History Arthritis: No Autoimmune Disease: No Anxiety: Yes Cancer: No Cardiovascular Problems: No Diabetes: No Diminished Hearing: No Endocrine: No Genitourinary: No Hepatitis: Yes ( hep c) Neurologic: No Psychiatric: No Respiratory: No Thyroid Disease: No Past Surgical History Neurologic Surgery: Yes ([facility] ON SPINE REMOVE) Social History Alcohol Use: Yes (OCC SOCIAL) Tobacco Use: Yes (1PPD) Substance Use: Yes (THC, iv dilaudid ) Allergies-Medications (Allergen,Severity, Reaction): Coded Allergies: acetaminophen (Verified Allergy, Severe, hives , 11/13/16) naproxen (Verified Allergy, Intermediate, rash/ hepC, 11/13/16) Reported Meds & Prescriptions Reported Meds & Active Scripts Active Review of Systems Except as stated in HPI: all other systems reviewed are Neg Physical Exam Narrative GENERAL: Well-developed well-nourished male in no acute distress SKIN: Warm and dry. There is no area of induration and erythema to the right antecubital region. There is a 0.5 cm area of purulent sanguinous drainage. Wound culture was obtained. HEAD: Atraumatic. Normocephalic. EYES: Pupils equal and round. No scleral icterus. No injection or drainage. ENT: No nasal bleeding or discharge. Mucous membranes pink and moist. NECK: Trachea midline. No JVD. CARDIOVASCULAR: Regular rate and rhythm. No murmur appreciated. RESPIRATORY: No accessory muscle use. Clear to auscultation. Breath sounds equal bilaterally. MUSCULOSKELETAL: Skin as noted above with no associated edema to the right arm or effusion in the right elbow. There is no proximal streaking or axillary lymphadenopathy. NEUROLOGICAL: Awake and alert. No obvious cranial nerve deficits. Motor grossly within normal limits. Normal speech. Data Data Last Documented VS Vital Signs Date Time Temp Pulse Resp B/P (MAP) Pulse Ox O2 Delivery O2 Flow Rate FiO2 04/13/17 08:59 99.2 93 18 125/81 (96) 97 Room Air Orders Orders Wound Culture And Gram Stain (04/13/17 09:21) Sulfamet-Trimeth Ds 800-160 Mg (Bactrim (04/13/17 09:30) Cephalexin (Keflex) (04/13/17 09:30) Ed Discharge Order (04/13/17 09:21) [facility] Medical Decision Making Medical Screen Exam Complete: Yes Emergency Medical Condition: Yes Medical Record Reviewed: Yes Differential Diagnosis Right arm cellulitis versus abscess versus necrotizing fasciitis versus septic arthritis versus sepsis Narrative Course Examination is consistent with cellulitis to the right antecubital region. A wound culture was obtained. The patient was counseled very extensively on the importance of taking the antibiotics that are prescribed. I also discussed signs and symptoms old warrant returning to the emergency room in great detail. He verbalizes understanding. He will be started on Bactrim and Keflex, first dose provided today. Diagnosis Primary Impression: Cellulitis of right arm Referrals: [facility] Additional Instructions: Considered sending a detoxification center in regards to your opiate addiction. Take the antibiotics as prescribed. Warm compresses to the affected area several times a day 15 minutes at a time. Return for evidence of worsening infection such as increasing redness, red streaks up the arm, fevers. Med/Other Pt SpecificInfo: Prescription(s) given Scripts Cephalexin (Keflex) 500 Mg Cap 500 MG PO Q8H for Infection, #30 CAP 0 Refills Prov: Caleb Decker MD 04/13/17 Sulfamethoxazole-Trimethoprim (Bactrim DS) 800-160 Mg Tab 1 TAB PO BID for Infection, #20 TAB 0 Refills Prov: Caleb Decker MD 04/13/17 Disposition: 01 DISCHARGE HOME Condition: Stable Christian Muniz Apr 13, 2017 09:27
[2017-04-13] MEDS ORDERED: SULFAMETHOXAZOLE-TRIMETHOPRIM DS 800-160 MG TAB PO ONE (09:30)
[2017-04-13] MEDS ORDERED: CEPHALEXIN MONOHYDRATE 500 MG CAP PO ONE (09:30)
== END 2017-04-13 09:47 | disposition home or self-care (01) ==
LOC: NEPK 08:58
DX: L03.113 Cellulitis of right upper limb (principal); B19.20 Unspecified viral hepatitis C without hepatic coma; F11.20 Opioid dependence, uncomplicated; F41.9 Anxiety disorder, unspecified; F17.210 Nicotine dependence, cigarettes, uncomplicated
CPT/HCPCS: 86403; 87070; 99283